=== PATIENT | male | born 1940 | race Caucasian/White ===

== ENCOUNTER 2017-04-07 06:00 | Outpatient (RCR) | payer SELFPAY | END 2017-04-08 23:59 | LOC: PR 06:00 | PROVIDERS: Family Provider Family Medicine; PCP Family Medicine; Visit Provider Family Medicine | DX: Z00.00 Encounter for general adult medical examination without abnormal findings (principal) ==

== ENCOUNTER 2017-05-05 06:00 | Outpatient (RCR) | payer SELFPAY | END 2017-05-06 23:59 | LOC: PR 06:00 | PROVIDERS: Family Provider Family Medicine; PCP Family Medicine; Visit Provider Family Medicine | DX: Z00.00 Encounter for general adult medical examination without abnormal findings (principal) ==

== ENCOUNTER 2017-06-04 06:00 | Outpatient (RCR) | payer SELFPAY | END 2017-06-06 23:59 | LOC: PR 06:00 | PROVIDERS: Family Provider Family Medicine; PCP Family Medicine; Visit Provider Family Medicine | DX: Z00.00 Encounter for general adult medical examination without abnormal findings (principal) ==

== ENCOUNTER 2017-07-02 07:00 | Outpatient (RCR) | payer SELFPAY | END 2017-07-06 23:59 | LOC: PR 07:00 | PROVIDERS: Family Provider Family Medicine; PCP Family Medicine; Visit Provider Family Medicine | DX: Z00.00 Encounter for general adult medical examination without abnormal findings (principal) ==

== ENCOUNTER 2017-08-06 07:00 | Outpatient (RCR) | payer SELFPAY | END 2017-08-06 23:59 | LOC: PR 07:00 | PROVIDERS: Family Provider Family Medicine; PCP Family Medicine; Visit Provider Family Medicine | DX: Z00.00 Encounter for general adult medical examination without abnormal findings (principal) ==

== ENCOUNTER 2017-09-03 07:00 | Outpatient (RCR) | payer SELFPAY | END 2017-09-05 23:59 | LOC: PR 07:00 | PROVIDERS: Family Provider Family Medicine; PCP Family Medicine; Visit Provider Family Medicine | DX: Z00.00 Encounter for general adult medical examination without abnormal findings (principal) ==

== ENCOUNTER → 2017-09-22 08:38 | Outpatient (CLI) | payer MEDICARE, SELFPAY ==
[2017-09-22 10:16] LABS: Absolute Neutrophil Count 4.1 X10^3/uL (2.0-7.7); Basophil# 0.02 X10^3/uL; Basophil% 0.3 % (0-1); Eosinophils% 1.6 % (0-5); Hematocrit 39.6 % (40-54); Hemoglobin 13.2 g/dl (13.0-16.5); Lymphocyte % 22.2 % (19-41); Mean Corp Hgb Conc 33.3 g/gl (32-36); Mean Platelet Vol. 10.7 fl (6.2-12.0); Monocyte# 0.71 X10^3/uL; Monocyte% 11.3 % (0-10); Neutrophil # 4.06 X10^3/uL (2.7-7.7); Neutrophil % 64.4 % (47-70); Platelet Count 164 K/mm3 (150-450); RBC Distribution Width CV 11.9 % (11.6-14.6); RBC Distribution Width SD 42.4 fl (35.1-43.9); White Blood Count 6.3 K/mm3 (4.4-11.0)
[2017-09-22 10:17] LABS: POSITIVE COUNT NO; POSITIVE DIFFERENTIAL NO; POSITIVE MORPHOLOGY NO
[2017-09-22 10:41] LABS: AST(SGOT) 32 U/L (15-37); Alanine Aminotransfer ALT/SGPT 40 U/L (16-61); Albumin, Serum 3.6 g/dL (3.2-5.0); Alkaline Phosphatase 48 U/L (45-117); Anion Gap 7 (5-15); BUN 12 mg/dL (7-18); BUN/Creat Ratio 12.4 RATIO (10-20); Calcium,Total 8.4 mg/dL (8.5-10.1); Chloride 104 mmol/L (98-107); Cholesterol 153 mg/dL (200); Creatinine, Serum 0.96 mg/dL (0.70-1.30); EST Glomerular Filtration Rate 81 mL/min (>60); Est Glom Filt Rate - Afr Amer 98 mL/min (>60); Globulin 3.5 g/dL (2.2-4.2); Glucose 105 mg/dL (74-106); High Density Lipoprotein 67 mg/dL; PSA,Total - Annual Screen 1.36 ng/mL (0.00-4.00); Potassium 4.5 mmol/L (3.5-5.1); Protein, Total 7.1 g/dL (6.4-8.2); Sodium Level 139 mmol/L (136-145); Triglycerides 65 mg/dL; Very Low Density Lipoprotein 13 mg/dL (5-40)
== END ==
PROVIDERS: Family Provider Family Medicine; PCP Family Medicine; Visit Provider Family Medicine
DX: Z00.00 Encounter for general adult medical examination without abnormal findings (principal); Z12.5 Encounter for screening for malignant neoplasm of prostate; J44.9 Chronic obstructive pulmonary disease, unspecified; E78.00 Pure hypercholesterolemia, unspecified
CPT/HCPCS: 36415; 80053; 80061; 84153; 85025; G0103

== ENCOUNTER 2017-10-06 07:00 | Outpatient (RCR) | payer SELFPAY | END 2017-10-06 23:59 | LOC: PR 07:00 | PROVIDERS: Family Provider Family Medicine; PCP Family Medicine; Visit Provider Family Medicine | DX: Z00.00 Encounter for general adult medical examination without abnormal findings (principal) ==

== ENCOUNTER 2017-11-05 07:00 | Outpatient (RCR) | payer SELFPAY | END 2017-11-06 23:59 | LOC: PR 07:00 | PROVIDERS: Family Provider Family Medicine; PCP Family Medicine; Visit Provider Family Medicine | DX: Z00.00 Encounter for general adult medical examination without abnormal findings (principal) ==

== ENCOUNTER 2017-12-03 07:00 | Outpatient (RCR) | payer SELFPAY | END 2017-12-06 23:59 | LOC: PR 07:00 | PROVIDERS: Family Provider Family Medicine; PCP Family Medicine; Visit Provider Family Medicine | DX: Z00.00 Encounter for general adult medical examination without abnormal findings (principal) ==

== ENCOUNTER 2018-01-05 07:00 | Outpatient (RCR) | payer SELFPAY | END 2018-01-06 23:59 | LOC: PR 07:00 | PROVIDERS: Family Provider Family Medicine; PCP Family Medicine; Referring Provider Family Medicine; Visit Provider Family Medicine | DX: Z00.00 Encounter for general adult medical examination without abnormal findings (principal) ==

== ENCOUNTER 2018-02-04 07:00 | Outpatient (RCR) | payer SELFPAY | END 2018-02-05 23:59 | LOC: PR 07:00 | PROVIDERS: Family Provider Family Medicine; PCP Family Medicine; Referring Provider Family Medicine; Visit Provider Family Medicine | DX: Z00.00 Encounter for general adult medical examination without abnormal findings (principal) ==

== ENCOUNTER 2018-03-04 07:00 | Outpatient (RCR) | payer SELFPAY | END 2018-03-08 23:59 | LOC: PR 07:00 | PROVIDERS: Family Provider Family Medicine; PCP Family Medicine; Referring Provider Family Medicine; Visit Provider Family Medicine | DX: Z00.00 Encounter for general adult medical examination without abnormal findings (principal) ==

== ENCOUNTER 2018-04-08 06:00 | Outpatient (RCR) | payer SELFPAY | END 2018-04-08 23:59 | LOC: PR 06:00 | PROVIDERS: Family Provider Family Medicine; PCP Family Medicine; Referring Provider Family Medicine; Visit Provider Family Medicine | DX: Z00.00 Encounter for general adult medical examination without abnormal findings (principal) ==

== ENCOUNTER 2018-05-06 06:00 | Outpatient (RCR) | payer SELFPAY | END 2018-05-06 23:59 | LOC: PR 06:00 | PROVIDERS: Family Provider Family Medicine; PCP Family Medicine; Referring Provider Family Medicine; Visit Provider Family Medicine | DX: Z00.00 Encounter for general adult medical examination without abnormal findings (principal) ==

== ENCOUNTER 2018-06-03 06:00 | Outpatient (RCR) | payer SELFPAY | END 2018-06-06 23:59 | LOC: PR 06:00 | PROVIDERS: Family Provider Family Medicine; PCP Family Medicine; Referring Provider Family Medicine; Visit Provider Family Medicine | DX: Z00.00 Encounter for general adult medical examination without abnormal findings (principal) ==

== ENCOUNTER 2018-07-06 06:00 | Outpatient (RCR) | payer SELFPAY | END 2018-07-06 23:59 | LOC: PR 06:00 | PROVIDERS: Family Provider Family Medicine; PCP Family Medicine; Referring Provider Family Medicine; Visit Provider Family Medicine | DX: Z00.00 Encounter for general adult medical examination without abnormal findings (principal) ==

== ENCOUNTER 2018-08-03 06:00 | Outpatient (RCR) | payer SELFPAY | END 2018-08-06 23:59 | LOC: PR 06:00 | PROVIDERS: Family Provider Family Medicine; PCP Family Medicine; Referring Provider Family Medicine; Visit Provider Family Medicine | DX: Z00.00 Encounter for general adult medical examination without abnormal findings (principal) ==

== ENCOUNTER 2018-09-02 06:00 | Outpatient (RCR) | payer SELFPAY | END 2018-09-05 23:59 | LOC: PR 06:00 | PROVIDERS: Family Provider Family Medicine; PCP Family Medicine; Referring Provider Family Medicine; Visit Provider Family Medicine | DX: Z00.00 Encounter for general adult medical examination without abnormal findings (principal) ==

== ENCOUNTER 2018-10-05 06:00 | Outpatient (RCR) | payer SELFPAY | END 2018-10-06 23:59 | LOC: PR 06:00 | PROVIDERS: Family Provider Family Medicine; PCP Family Medicine; Referring Provider Family Medicine; Visit Provider Family Medicine | DX: Z00.00 Encounter for general adult medical examination without abnormal findings (principal) ==

== ENCOUNTER → 2018-11-01 07:47 | Outpatient (CLI) | payer MEDICARE, SELFPAY ==
[2018-11-01 10:09] LABS: Absolute Lymphocyte Count 1.74 X10^3/uL (0.83-4.51); Absolute Neutrophil Count 3.2 X10^3/uL (2.0-7.7); Basophil# 0.04 X10^3/uL; Basophil% 0.7 % (0-1); Eosinophil# 0.28 X10^3/uL; Eosinophils% 4.6 % (0-5); Hematocrit 40.3 % (40-54); Hemoglobin 13.3 g/dL (13.0-16.5); Lymphocyte # 1.74 X10^3/ul (4.0); Lymphocyte % 28.3 % (19-41); Mean Corpuscular Hgb 32.6 pg (27.0-32.0); Mean Corpuscular Volume 98.8 fL (80-94); Mean Platelet Vol. 10.2 fl (6.2-12.0); Monocyte# 0.82 X10^3/uL; Monocyte% 13.4 % (0-10); NRBC Flagged by Analyzer 0 % (0-5); Neutrophil # 3.24 X10^3/uL (2.7-7.7); Neutrophil % 52.7 % (47-70); Platelet Count 157 K/mm3 (150-450); RBC Distribution Width CV 12.1 % (11.6-14.6); RBC Distribution Width SD 44.5 fl (35.1-43.9); Red Blood Count 4.08 M/mm3 (4.6-6.2); White Blood Count 6.1 K/mm3 (4.4-11.0)
[2018-11-01 10:36] LABS: ALB/GLOB Ratio 1.1 RATIO (0.9-2.4); AST(SGOT) 34 U/L (15-37); Alanine Aminotransfer ALT/SGPT 36 U/L (16-61); Albumin, Serum 3.5 g/dL (3.2-5.0); Alkaline Phosphatase 49 U/L (45-117); Anion Gap 5 (5-15); BUN 15 mg/dL (7-18); BUN/Creat Ratio 14.9 RATIO (10-20); Calcium,Total 8.7 mg/dL (8.5-10.1); Chloride 107 mmol/L (98-107); Creatinine, Serum 1.01 mg/dL (0.70-1.30); EST Glomerular Filtration Rate 76 mL/min (>60); Est Glom Filt Rate - Afr Amer 92 mL/min (>60); Globulin 3.3 g/dL (2.2-4.2); Glucose 95 mg/dL (74-106); Potassium 4.4 mmol/L (3.5-5.1); Protein, Total 6.8 g/dL (6.4-8.2); Sodium Level 142 mmol/L (136-145)
== END ==
PROVIDERS: Family Provider Family Medicine; PCP Family Medicine; Referring Provider Family Medicine; Visit Provider Family Medicine
DX: J44.9 Chronic obstructive pulmonary disease, unspecified (principal)
CPT/HCPCS: 36415; 80053; 85025

== ENCOUNTER 2018-11-04 06:00 | Outpatient (RCR) | payer SELFPAY | END 2018-11-06 23:59 | LOC: PR 06:00 | PROVIDERS: Family Provider Family Medicine; PCP Family Medicine; Referring Provider Family Medicine; Visit Provider Family Medicine | DX: Z00.00 Encounter for general adult medical examination without abnormal findings (principal) ==

== ENCOUNTER 2018-12-02 06:00 | Outpatient (RCR) | payer SELFPAY | END 2018-12-06 23:59 | LOC: PR 06:00 | PROVIDERS: Family Provider Family Medicine; PCP Family Medicine; Referring Provider Family Medicine; Visit Provider Family Medicine | DX: Z00.00 Encounter for general adult medical examination without abnormal findings (principal) ==

== ENCOUNTER 2019-01-06 06:00 | Outpatient (RCR) | payer SELFPAY | END 2019-01-06 23:59 | LOC: PR 06:00 | PROVIDERS: Family Provider Family Medicine; PCP Family Medicine; Referring Provider Family Medicine; Visit Provider Family Medicine | DX: Z00.00 Encounter for general adult medical examination without abnormal findings (principal) ==

== ENCOUNTER 2019-02-01 06:00 | Outpatient (RCR) | payer SELFPAY | END 2019-02-05 23:59 | LOC: PR 06:00 | PROVIDERS: Family Provider Family Medicine; PCP Family Medicine; Referring Provider Family Medicine; Visit Provider Family Medicine | DX: Z00.00 Encounter for general adult medical examination without abnormal findings (principal) ==

== ENCOUNTER 2019-03-08 06:00 | Outpatient (RCR) | payer SELFPAY | END 2019-03-08 23:59 | LOC: PR 06:00 | PROVIDERS: Family Provider Family Medicine; PCP Family Medicine; Referring Provider Family Medicine; Visit Provider Family Medicine | DX: Z00.00 Encounter for general adult medical examination without abnormal findings (principal) ==

== ENCOUNTER → 2019-03-08 09:49 | Outpatient (CLI) | payer MEDICARE, SELFPAY ==
--- NOTE | 2019-03-08 09:51 | VDLE_ITS ---
Reason For Study: DVT RIGHT GSV is normal. CFV is compressible, spontaneous, phasic, competent and demonstrates normal augmentation. FV is compressible, spontaneous, phasic, competent and demonstrates normal augmentation. POP V is compressible, spontaneous, phasic, competent and demonstrates normal augmentation. T/P Trunk is compressible. PTV is compressible. RT PerV is compressible. Procedure Exam performed in department. A preliminary report was called and/or faxed to [facility]. Interpretation Summary Deep veins of the right lower extremity are patent and compressible segmentally. There is no evidence of right lower extremity deep vein thrombosis. Valvular competence appears intact within the proximal deep venous system on the right . The right great saphenous vein appears patent and compressible segmentally. Ordering Physician: Tony Vicente Referring Physician: Cameron Woods MD Performed By: Vianney Rutherford RVT
== END ==
PROVIDERS: Family Provider Family Medicine; PCP Family Medicine; Referring Provider Family Medicine; Visit Provider Family Medicine
DX: M79.89 Other specified soft tissue disorders (principal)
CPT/HCPCS: 93971

== ENCOUNTER 2019-03-11 06:35 | Outpatient (RCR) | payer SELFPAY | END 2019-04-08 23:59 | LOC: PR 06:35 | PROVIDERS: Family Provider Family Medicine; PCP Family Medicine; Referring Provider Family Medicine; Visit Provider Family Medicine | DX: Z00.00 Encounter for general adult medical examination without abnormal findings (principal) ==

== ENCOUNTER → 2019-03-31 14:55 | Outpatient (CLI) | payer MEDICARE, SELFPAY ==
--- NOTE | 2019-03-31 14:59 | CT_ITS ---
ACR Level 3 findings have been noted. An addendum which confirms receipt of the report will follow. HISTORY: CONSTIPATION, HERNIA REPAIR X 2 TECHNIQUE: Helically acquired images were obtained of the abdomen and pelvis without oral or IV contrast. A radiation dose optimization technique was used for this scan. COMPARISON: None FINDINGS: # of images incl. paperwork: [id number] LUNG BASES: Pulmonary hyperexpansion. Interstitial thickening suggestive of obstructive lung disease and possibly emphysema CT abdomen: Multilevel degenerative disc disease and facet arthropathy. Spondylolysis without spondylolisthesis at L5-S1. Multilevel degenerative disc disease with loss of disc height, endplate sclerosis, and disc gas phenomenon. Gas with in the spinal canal at the L2-L3 and L3-L4 levels indicative of disc gas phenomenon, annular tears, and protrusions. Spinal canal stenosis at the L2-L3, L3-L4, and L4-L5 levels with bone disc material extending posteriorly into the spinal canal, facet arthropathy, and ligamentum flavum thickening. Schmorl's node invaginations at many levels. Some hip arthritis. Sacroiliac joint arthritis with enthesophytes. The gallbladder remains. With in the posterior aspect of the lateral segment of the left hepatic lobe there is an area of decreased density measuring 5.9 cm. It has fairly well-defined margins that are somewhat lobular. This relatively hypodense area has a central density of 31 Hounsfield units, compared to a central density of 50 Hounsfield units of the adjacent hepatic parenchyma. Thespleen, pancreas, and adrenal glands are normal. Kidneys demonstrate mild atrophy. No hydronephrosis or hydroureter. The aorta is diseased with atherosclerotic plaque and is tortuous. There is an infrarenal abdominal aortic aneurysm measuring 3.1 cm. There is no intra-or extrahepatic biliary ductal dilatation. CT pelvis: No ascites is present. The prostate gland is not enlarged. The appendix is normal. Series 2 image 97. The bladder not pathologically distended. There is a right posterior lateral bladder diverticulum. The diverticulum is anterior and lateral to the right UVJ.. Severe diverticulosis within the descending and sigmoid colon without evidence of acute diverticulitis CT/Abdomen/Pelvis without Cont IMPRESSION: Severe multilevel degenerative disc disease. Spondylolysis at L5. 3.1 cm infrarenal abdominal aortic aneurysm. 5.9 cm area of decreased density within the lateral segment of the left hepatic lobe posteriorly. This of unknown etiology. This could be an area of focal hepatic steatosis. Is less likely but not excluded. Recommend comparison any previous imaging. If no previous imaging consider additional imaging modality such as multiphase CT, multiphase MRI. Severe diverticulosis without perceived acute diverticulitis. Individualized dose optimization techniques were used for this CT. at 2305 Reported and signed by: Fausto Garcia MD Electronically Signed: Fausto Garcia MD at 23:04 EST Tel , Service support ,
== END ==
PROVIDERS: PCP Family Medicine; Referring Provider Family Medicine; Visit Provider Family Medicine
DX: K59.00 Constipation, unspecified (principal)
CPT/HCPCS: 74176

== ENCOUNTER 2019-04-07 06:00 | Outpatient (RCR) | payer SELFPAY | END 2019-04-08 23:59 | LOC: PR 06:00 | PROVIDERS: Family Provider Family Medicine; PCP Family Medicine; Referring Provider Family Medicine; Visit Provider Family Medicine | DX: Z00.00 Encounter for general adult medical examination without abnormal findings (principal) ==

== ENCOUNTER 2019-05-05 06:00 | Outpatient (RCR) | payer SELFPAY | END 2019-05-07 23:59 | LOC: PR 06:00 | PROVIDERS: Family Provider Family Medicine; PCP Family Medicine; Referring Provider Family Medicine; Visit Provider Family Medicine | DX: Z00.00 Encounter for general adult medical examination without abnormal findings (principal) ==

== ENCOUNTER → 2019-05-12 09:11 | Outpatient (CLI) | payer MEDICARE, SELFPAY ==
--- NOTE | 2019-05-12 09:16 | MRI_ITS ---
STUDY: MRI ABDOMEN WITH AND WITHOUT CONTRAST REASON FOR EXAM: Male, [address] scan, no complaints TECHNIQUE: Standardized fat and water weighted pulse sequences were obtained in all 3 orthogonal planes post contrast administration. IV Yes YES was administered for the contrast portion of the examination. COMPARISON: CT 03/31/2019 FINDINGS: The visualized lung bases are unremarkable. The visualized portions of the heart are within normal limits. There is a 4 x 5 cm T1 isointense, T2 slightly hyperintense area within the posterior aspect of the lateral segment left lobe liver which demonstrates hypointensity on the out of phase gradient echo images consistent with focal fatty infiltration. Furthermore, the enhanced images demonstrate normal enhancing portal vein branches and hepatic vein branches traversing through the area consistent with no true space-occupying mass. Normal gallbladder and extrahepatic biliary system. Normal spleen. Normal pancreas. Normal bilateral adrenal glands. Normal right kidney. Normal left kidney. Normal visualized stomach. Normal small intestine. Normal colon. There is non-visualization of the appendix. Tortuosity of the distal abdominal aorta with a maximal transverse diameter of 2.5 cm. Normal inferior vena cava. Normal retroperitoneum. Normal abdominal wall. Normal osseous structures. MRI/MRI Abd WITH and W/O Contrast IMPRESSION: MRI confirms a 4 x 5 cm area of focal fatty aeration in the posterior lateral segment left lobe of the liver. Electronically Signed: Mata Gonzalez MD at 10:45 EST Tel , Service support ,
[2019-05-12 10:01] LABS: EGFR FINGERSTICK > 60.0000 mL/min (>60)
== END ==
PROVIDERS: PCP Family Medicine; Referring Provider Family Medicine; Visit Provider Family Medicine
DX: R16.0 Hepatomegaly, not elsewhere classified (principal)
CPT/HCPCS: 74183; A9575

== ENCOUNTER 2019-05-19 06:00 | Outpatient (RCR) | payer SELFPAY | END 2019-06-07 23:59 | LOC: PR 06:00 | PROVIDERS: Family Provider Family Medicine; PCP Family Medicine; Referring Provider Family Medicine; Visit Provider Family Medicine | DX: Z00.00 Encounter for general adult medical examination without abnormal findings (principal) ==

== ENCOUNTER 2019-05-25 10:30 | Outpatient (RCR) | payer MEDICARE, SELFPAY ==
--- NOTE | 2019-04-28 12:12 | HP.PTEVAL_ITS ---
Patient's Visit Information JENNIFER VILLAGRAN is a 78 year old M referred to Physical Therapy by Cameron Woods MD with a diagnosis of LOW BACK PAIN ,DDD. Date of Evaluation: 04/28/19 Physical Therapist: Garry Lane PT, Cert MDT, OCS - Visit Plan Frequency: 1x/Week Duration: 6 Weeks Plan: PT INTERVENTIONS DLS,POSTURAL EX'S,MODALTIES,LE FLEXABILITY - Subjective Findings: This 78 y/o mael presents to physical therapy with lumbar pain. Patient has LBP for many years. Patient pain located as ache /sharp with activity symmtrical. Aggravting lifting,bending,standing .Alleviating factors sitting ,resting. Patient has cramps at night and restless legs. Denies parathesia/tingling. Bowel/bladder -. Coughing/sneezing-. Patient seen Dr for physical recommended PT. Patient seen chiropractor every week. Patient pain affects QOL ,function and ADL'S. SOCIAL: . VOCATION: retired - Pain Bilateral Back Pain Intensity (Out of 10): 3 Pain Intensity Range: 10 - Objective POSTURE: dropped right shoulder,mild foward posture. NEURO: denies parathesia/tingling,reflexes 2/3 L3-4,L4-5,L5-S1. PALPATION: unremarkable. GAIT: rexciprocal pattern. FLEXABLITY: hams mild tight. MMT: quads/ham/hip 4- /5 R,left 4/5. LUMBAR ROM: flexion min tight,extension mod ,side glides min tight. MUSCULAR ENDURANCE:poor core - Special Tests L/S Slump test left side: Negative L/S Slump test right side: Negative L/S Left Straight Leg Raise: Negative L/S Right Straight Leg Raise: Negative Lumbar Standing: Flexion - Mechanical Response: No effect Lumbar Standing: Flexion - Symptoms During Testing: No effect Lumbar Standing: Flexion - Symptoms After Testing: No effect Lumbar Standing: Extension - Mechanical Response: No effect Lumbar Standing: Extension - Symptoms During Testing: Increases Lumbar Standing: Extension - Symptoms After Testing: No worse Lumbar Standing: Right Side Glides - Mechanical Response: No effect Lumbar Standing: Right Side [place] - Symptoms During Testing: No effect Lumbar Standing: Right Side [place] - Symptoms After Testing: No effect Lumbar Standing: Left Side [place] - Mechanical Response: No effect Lumbar Standing: Left Side [place] - Symptoms During Testing: Increases Lumbar Standing: Left Side [place] - Symptoms After Testing: No worse - Goals Goal 1:: Patient to be Independant with HEP. Goal Time Frame: 4-6 Weeks Goal 2:: Patient improve posture for ADLS Goal Time Frame: 4-6 Weeks Goal 3:: Patient to decrease pain by 50% or > to improve function. Goal Time Frame: 4-6 Weeks Goal 4:: Patient to improve lumbar ROM for function of recovery Goal Time Frame: 4-6 Weeks Goal 5:: Patient to improve back owestry score by 5 points or > to improve QOL. Goal Time Frame: 4-6 Weeks - Rehabilitation Potential Physical Therapy Diagnosis: This patient with low back pain due to weakness core,posture which impairs gait,function thus benifit from skilled PT Rehabilitation Potential: Good - Anticipated Interventions Patient/Client Instruction: Educate patient on: Condition, Plan of Care For the Purpose of:: To decrease pain, To increase ROM, To improve muscle performance and motor function, To improve ability to perform ADL's, To increase tolerance to activity/condition/position, To improve performance and independence with ADL's, To improve ability of physical actions for home/community/work/leisure, To improve health of tissue, To decrease soft tissue restriction, To increase flexibility/ROM, To prevent re-injury, To improve ability to perform tasks related to life management Therapeutic Exercise to Include: Strength training, Body mechanics, Postural training, Flexibilty training, Dynamic Lumbar Stabilization For the Purpose of:: To decrease pain, To increase ROM, To improve muscle performance and motor function, To improve ability to perform ADL's, To increase tolerance to activity/condition/position, To improve ability of physical actions for home/community/work/leisure, To improve health of tissue, To decrease soft tissue restriction, To increase flexibility/ROM, To improve ability to perform tasks related to life management TENS: Yes IF ES: Yes Cryotherapy (ice pack, ice massage): Yes Thermo therapy (hot pack): Yes Ultrasound (thermal/non thermal): Yes For the Purpose of:: To decrease pain, To increase ROM, To improve nutrient delivery to tissue, To increase oxygenation perfusion, To improve health of tissue, To decrease soft tissue restriction Thank you for the opportunity to evaluate your patient. For Medicare and Medicare HMO plans, please review the plan of care and approve it. It will need to be FAXED BACK to us at [phone] for Medicare purposes. For Medicare only, by signing this I certify the plan of care. Please let me know if there are questions or concerns regarding this plan of care. Physician Signature: Date:
--- NOTE | 2019-10-19 10:26 | HP.PT.NRP ---
JENNIFER VILLAGRAN was seen in my office for initial evaluation on 04/28/19. The following Plan of Care was established for this patient: Initial Frequency: 1x/Week Initial Duration: 6 Weeks Patient/Client Instruction: Educate patient on: Condition, Plan of Care For the Purpose of:: To decrease pain, To increase ROM, To improve muscle performance and motor function, To improve ability to perform ADL's, To increase tolerance to activity/condition/position, To improve performance and independence with ADL's, To improve ability of physical actions for home/community/work/leisure, To improve health of tissue, To decrease soft tissue restriction, To increase flexibility/ROM, To prevent re-injury, To improve ability to perform tasks related to life management Therapeutic Exercise to Include: Strength training, Body mechanics, Postural training, Flexibilty training, Dynamic Lumbar Stabilization For the Purpose of:: To decrease pain, To increase ROM, To improve muscle performance and motor function, To improve ability to perform ADL's, To increase tolerance to activity/condition/position, To improve ability of physical actions for home/community/work/leisure, To improve health of tissue, To decrease soft tissue restriction, To increase flexibility/ROM, To improve ability to perform tasks related to life management TENS: Yes IF ES: Yes Cryotherapy (ice pack, ice massage): Yes Thermo therapy (hot pack): Yes Ultrasound (thermal/non thermal): Yes For the Purpose of:: To decrease pain, To increase ROM, To improve nutrient delivery to tissue, To increase oxygenation perfusion, To improve health of tissue, To decrease soft tissue restriction This patient was last seen in our office . Pertinent comments regarding their Physical therapy will appear below: At this point I will be discontinuing this patient from physical therapy. I would be happy to see this patient again in the future if found appropriate by the physician. Thank you! Garry Lane, PT, Cert MDT, OCS
== END 2019-05-25 19:00 | disposition home or self-care (01) ==
LOC: PT 10:30
PROVIDERS: PCP Family Medicine; Referring Provider Family Medicine; Visit Provider Family Medicine
DX: M54.5 Low back pain (principal); M51.36 Other intervertebral disc degeneration, lumbar region
CPT/HCPCS: 97110; 97162

== ENCOUNTER 2019-07-21 06:22 | Outpatient (RCR) | payer SELFPAY | END 2019-08-07 23:59 | LOC: PR 06:22 | PROVIDERS: Family Provider Family Medicine; PCP Family Medicine; Referring Provider Family Medicine; Visit Provider Family Medicine | DX: Z00.00 Encounter for general adult medical examination without abnormal findings (principal) ==

== ENCOUNTER 2019-08-16 06:16 | Outpatient (RCR) | payer SELFPAY | END 2019-09-06 23:59 | LOC: PR 06:16 | PROVIDERS: Family Provider Family Medicine; PCP Family Medicine; Referring Provider Family Medicine; Visit Provider Family Medicine | DX: Z00.00 Encounter for general adult medical examination without abnormal findings (principal) ==

== ENCOUNTER 2019-10-06 06:00 | Outpatient (RCR) | payer SELFPAY | END 2019-10-07 23:59 | LOC: PR 06:00 | PROVIDERS: Family Provider Family Medicine; PCP Family Medicine; Referring Provider Family Medicine; Visit Provider Family Medicine | DX: Z00.00 Encounter for general adult medical examination without abnormal findings (principal) ==

== ENCOUNTER → 2019-10-25 07:28 | Outpatient (CLI) | payer MEDICARE, SELFPAY ==
[2019-10-25 10:09] LABS: Absolute Lymphocyte Count 1.61 X10^3/uL (0.83-4.51); Absolute Neutrophil Count 3.6 X10^3/uL (2.0-7.7); Basophil# 0.04 X10^3/uL; Basophil% 0.6 % (0-1); Eosinophil# 0.18 X10^3/uL; Eosinophils% 2.9 % (0-5); Hematocrit 39.8 % (40-54); Hemoglobin 12.9 g/dL (13.0-16.5); Lymphocyte # 1.61 X10^3/ul (4.0); Lymphocyte % 25.5 % (19-41); Mean Corp Hgb Conc 32.4 g/dL (32-36); Mean Corpuscular Hgb 32.7 pg (27.0-32.0); Mean Platelet Vol. 10.6 fl (6.2-12.0); Monocyte# 0.85 X10^3/uL; Monocyte% 13.5 % (0-10); NRBC Flagged by Analyzer 0 % (0-5); Neutrophil # 3.62 X10^3/uL (2.7-7.7); Neutrophil % 57.3 % (47-70); Platelet Count 152 K/mm3 (150-450); RBC Distribution Width CV 12.4 % (11.6-14.6); RBC Distribution Width SD 46.4 fl (35.1-43.9); Red Blood Count 3.94 M/mm3 (4.6-6.2); White Blood Count 6.3 K/mm3 (4.4-11.0)
[2019-10-25 10:34] LABS: Microalbumin,Random Urine 7.6 mg/L (NO RANGE EST.); Microalbumin:Creatinine Ratio 7.7 mg/g CRE (<30 mg/g CRE)
[2019-10-25 10:50] LABS: Vitamin D,25 Hydroxy 40.4 ng/mL
[2019-10-25 11:15] LABS: AST(SGOT) 24 U/L (15-37); Alanine Aminotransfer ALT/SGPT 31 U/L (16-61); Albumin, Serum 3.6 g/dL (3.2-5.0); Alkaline Phosphatase 43 U/L (45-117); Anion Gap 3 (5-15); BUN 15 mg/dL (7-18); BUN/Creat Ratio 16.6 RATIO (10-20); Calcium,Total 8.6 mg/dL (8.5-10.1); Chloride 106 mmol/L (98-107); Creatinine, Serum 0.91 mg/dL (0.70-1.30); EST Glomerular Filtration Rate 86 mL/min (>60); Est Glom Filt Rate - Afr Amer 104 mL/min (>60); Ferritin 90 ng/mL (26-388); Globulin 3.5 g/dL (2.2-4.2); Glucose 112 mg/dL (74-106); Magnesium 2.4 mg/dL (1.6-2.6); Potassium 4.1 mmol/L (3.5-5.1); Protein, Total 7.1 g/dL (6.4-8.2); Sodium Level 139 mmol/L (136-145); Thyroid Stim Hormone (TSH) 2.44 uIU/mL (0.358-3.74)
== END ==
PROVIDERS: PCP Family Medicine; Referring Provider Family Medicine; Visit Provider Family Medicine
DX: M54.5 Low back pain (principal); G47.62 Sleep related leg cramps; J44.9 Chronic obstructive pulmonary disease, unspecified; I10 Essential (primary) hypertension
CPT/HCPCS: 36415; 80053; 82043; 82306; 82570; 82728; 83735; 84443; 85025

== ENCOUNTER 2019-11-03 06:00 | Outpatient (RCR) | payer SELFPAY | END 2019-11-07 23:59 | LOC: PR 06:00 | PROVIDERS: Family Provider Family Medicine; PCP Family Medicine; Referring Provider Family Medicine; Visit Provider Family Medicine | DX: Z00.00 Encounter for general adult medical examination without abnormal findings (principal) ==

== ENCOUNTER 2019-12-06 06:00 | Outpatient (RCR) | payer SELFPAY | END 2019-12-07 23:59 | LOC: PR 06:00 | PROVIDERS: Family Provider Family Medicine; PCP Family Medicine; Referring Provider Family Medicine; Visit Provider Family Medicine | DX: Z00.00 Encounter for general adult medical examination without abnormal findings (principal) ==

== ENCOUNTER 2020-01-05 06:00 | Outpatient (RCR) | payer SELFPAY | END 2020-01-07 23:59 | LOC: PR 06:00 | PROVIDERS: Family Provider Family Medicine; PCP Family Medicine; Referring Provider Family Medicine; Visit Provider Family Medicine | DX: Z00.00 Encounter for general adult medical examination without abnormal findings (principal) ==

== ENCOUNTER 2020-01-31 06:00 | Outpatient (RCR) | payer SELFPAY | END 2020-02-06 23:59 | LOC: PR 06:00 | PROVIDERS: Family Provider Family Medicine; PCP Family Medicine; Referring Provider Family Medicine; Visit Provider Family Medicine | DX: Z00.00 Encounter for general adult medical examination without abnormal findings (principal) ==

== ENCOUNTER 2020-03-08 06:00 | Outpatient (RCR) | payer SELFPAY | END 2020-03-08 23:59 | LOC: PR 06:00 | PROVIDERS: Family Provider Family Medicine; PCP Family Medicine; Referring Provider Family Medicine; Visit Provider Family Medicine | DX: Z00.00 Encounter for general adult medical examination without abnormal findings (principal) ==

== ENCOUNTER 2020-04-05 08:00 | Outpatient (RCR) | payer SELFPAY | END 2020-04-08 23:59 | LOC: PR 08:00 | PROVIDERS: PCP Family Medicine; Visit Provider Family Medicine | DX: Z00.00 Encounter for general adult medical examination without abnormal findings (principal) ==

== ENCOUNTER → 2020-04-12 09:45 | Outpatient (CLI) | payer MEDICARE, SELFPAY ==
--- NOTE | 2020-04-12 09:47 | US_ITS ---
PROCEDURES: ULTRASOUND AORTA REASON FOR EXAM: Male, 79 years old. AAA TECHNIQUE: Ultrasound evaluation of the aorta was performed with real-time and static enriquez-scale imaging. COMPARISON: None. FINDINGS: There is no elongation or tortuosity of the abdominal aorta. Aorta measures: Proximal 2.4 cm. Middle 2.8 cm. Distal 2.7 cm. Aorta measure transversely: Proximal 2.4 cm. Middle 2.8 cm. Distal 3.1 cm. Right iliac artery measures: 1.5 cm. Right iliac artery measure transversely: 1.4 cm. Left iliac artery measures: 1.7 cm. Left iliac artery measure transversely: 1.5 cm. Fusiform infrarenal abdominal aortic aneurysm with a transverse dimension of 3.1 cm.. US/Aorta IMPRESSION: Fusiform infrarenal abdominal aortic aneurysm with a transverse dimension of 3.1 cm. Electronically Signed: Lazaro Abebe MD at 10:50 EST , Service support ,
== END ==
PROVIDERS: PCP Family Medicine; Referring Provider Family Medicine; Visit Provider Family Medicine
DX: I71.4 Abdominal aortic aneurysm, without rupture (principal)
CPT/HCPCS: 76775

== ENCOUNTER 2020-06-05 08:00 | Outpatient (RCR) | payer SELFPAY | END 2020-06-06 23:59 | LOC: PR 08:00 | PROVIDERS: PCP Family Medicine; Visit Provider Family Medicine | DX: Z00.00 Encounter for general adult medical examination without abnormal findings (principal) ==

== ENCOUNTER 2020-07-05 08:00 | Outpatient (RCR) | payer SELFPAY | END 2020-07-06 23:59 | LOC: PR 08:00 | PROVIDERS: PCP Family Medicine; Visit Provider Family Medicine | DX: Z00.00 Encounter for general adult medical examination without abnormal findings (principal) ==

== ENCOUNTER 2020-08-02 08:00 | Outpatient (RCR) | payer SELFPAY | END 2020-08-06 23:59 | LOC: PR 08:00 | PROVIDERS: PCP Family Medicine; Visit Provider Family Medicine | DX: Z00.00 Encounter for general adult medical examination without abnormal findings (principal) ==

== ENCOUNTER 2020-09-04 08:00 | Outpatient (RCR) | payer SELFPAY | END 2020-09-05 23:59 | LOC: PR 08:00 | PROVIDERS: PCP Family Medicine; Referring Provider Family Medicine; Visit Provider Family Medicine | DX: Z00.00 Encounter for general adult medical examination without abnormal findings (principal) ==

== ENCOUNTER 2020-10-04 08:00 | Outpatient (RCR) | payer SELFPAY | END 2020-10-06 23:59 | LOC: PR 08:00 | PROVIDERS: PCP Family Medicine; Referring Provider Family Medicine; Visit Provider Family Medicine | DX: Z00.00 Encounter for general adult medical examination without abnormal findings (principal) ==

== ENCOUNTER 2020-11-06 08:00 | Outpatient (RCR) | payer SELFPAY | END 2020-11-06 23:59 | LOC: PR 08:00 | PROVIDERS: PCP Family Medicine; Referring Provider Family Medicine; Visit Provider Family Medicine | DX: Z00.00 Encounter for general adult medical examination without abnormal findings (principal) ==

== ENCOUNTER 2020-12-06 08:00 | Outpatient (RCR) | payer SELFPAY | END 2020-12-06 23:59 | LOC: PR 08:00 | PROVIDERS: PCP Family Medicine; Referring Provider Family Medicine; Visit Provider Family Medicine | DX: Z00.00 Encounter for general adult medical examination without abnormal findings (principal) ==

== ENCOUNTER 2021-01-03 08:00 | Outpatient (RCR) | payer SELFPAY | END 2021-01-06 23:59 | LOC: PR 08:00 | PROVIDERS: PCP Family Medicine; Referring Provider Family Medicine; Visit Provider Family Medicine | DX: Z00.00 Encounter for general adult medical examination without abnormal findings (principal) ==

== ENCOUNTER 2021-02-05 08:00 | Outpatient (RCR) | payer SELFPAY | END 2021-02-05 23:59 | LOC: PR 08:00 | PROVIDERS: PCP Family Medicine; Referring Provider Family Medicine; Visit Provider Family Medicine | DX: Z00.00 Encounter for general adult medical examination without abnormal findings (principal) ==

== ENCOUNTER → 2021-02-12 10:18 | Outpatient (CLI) | payer MEDICARE, SELFPAY ==
--- NOTE | 2021-02-12 10:21 | US_ITS ---
PROCEDURES: ULTRASOUND AORTA REASON FOR EXAM: Male, 80 years old. Follow up on AAA TECHNIQUE: Ultrasound evaluation of the aorta was performed with real-time and static enriquez-scale imaging. COMPARISON: Comparison is made with prior study of 04/12/2020. FINDINGS: There is tortuous elongation of the abdominal aorta. Aorta measures: Proximal 2.4 cm. Middle 1.9 cm. Distal 3 cm. Aorta measure transversely: Proximal 2.2 cm. Middle 1.5 cm. Distal 3 cm. Right iliac artery measures: 1.9 cm. Right iliac artery measure transversely: 1.5 cm. Left iliac artery measures: 1.5 cm. Left iliac artery measure transversely: 1.2 cm. Stable fusiform infrarenal abdominal aortic aneurysm with a transverse dimension of 3 cm.. US/Aorta IMPRESSION: Stable fusiform infrarenal abdominal aortic aneurysm with a transverse dimension of 3 cm. Electronically Signed: Lazaro Abebe MD at 15:20 EST , Service support ,
== END ==
PROVIDERS: PCP Family Medicine; Referring Provider Family Medicine; Visit Provider Family Medicine
DX: I71.4 Abdominal aortic aneurysm, without rupture (principal)
CPT/HCPCS: 76775

== ENCOUNTER 2021-03-07 08:00 | Outpatient (RCR) | payer SELFPAY | END 2021-03-08 23:59 | LOC: PR 08:00 | PROVIDERS: PCP Family Medicine; Referring Provider Family Medicine; Visit Provider Family Medicine | DX: Z00.00 Encounter for general adult medical examination without abnormal findings (principal) ==

== ENCOUNTER 2021-04-04 08:00 | Outpatient (RCR) | payer SELFPAY | END 2021-04-08 23:59 | LOC: PR 08:00 | PROVIDERS: PCP Family Medicine; Referring Provider Family Medicine; Visit Provider Family Medicine | DX: Z00.00 Encounter for general adult medical examination without abnormal findings (principal) ==

== ENCOUNTER 2021-04-30 08:00 | Outpatient (RCR) | payer SELFPAY | END 2021-05-06 23:59 | disposition home or self-care (01) | LOC: PR 08:00 | PROVIDERS: PCP Family Medicine; Referring Provider Family Medicine; Visit Provider Family Medicine | DX: Z00.00 Encounter for general adult medical examination without abnormal findings (principal) ==

== ENCOUNTER 2021-06-06 08:00 | Outpatient (RCR) | payer SELFPAY | END 2021-06-06 23:59 | disposition home or self-care (01) | LOC: PR 08:00 | PROVIDERS: PCP Family Medicine; Referring Provider Family Medicine; Visit Provider Family Medicine | DX: Z00.00 Encounter for general adult medical examination without abnormal findings (principal) ==

== ENCOUNTER 2021-07-04 08:00 | Outpatient (RCR) | payer SELFPAY | END 2021-07-06 23:59 | LOC: PR 08:00 | PROVIDERS: PCP Family Medicine; Referring Provider Family Medicine; Visit Provider Family Medicine | DX: Z00.00 Encounter for general adult medical examination without abnormal findings (principal) ==

== ENCOUNTER 2021-08-06 08:00 | Outpatient (RCR) | payer SELFPAY | END 2021-08-06 23:59 | LOC: PR 08:00 | PROVIDERS: PCP Family Medicine; Referring Provider Family Medicine; Visit Provider Family Medicine | DX: Z00.00 Encounter for general adult medical examination without abnormal findings (principal) ==

== ENCOUNTER → 2021-08-07 | Outpatient (CLI) | payer MEDICARE, SELFPAY ==
[2021-08-07 10:01] LABS: Hematocrit 37.9 % (40-54); Hemoglobin 12.7 g/dL (13.0-16.5); Mean Corp Hgb Conc 33.5 g/dL (32-36); Mean Corpuscular Hgb 32.6 pg (27.0-32.0); Mean Corpuscular Volume 97.4 fL (80-94); Mean Platelet Vol. 10.2 fl (6.2-12.0); Platelet Count 163 K/mm3 (150-450); Red Blood Count 3.89 M/mm3 (4.6-6.2); White Blood Count 7.5 K/mm3 (4.4-11.0)
[2021-08-07 10:34] LABS: ALB/GLOB Ratio 1.1 RATIO (0.9-2.4); AST(SGOT) 50 U/L (15-37); Alanine Aminotransfer ALT/SGPT 44 U/L (16-61); Albumin, Serum 3.7 g/dL (3.2-5.0); Alkaline Phosphatase 46 U/L (45-117); Anion Gap 7 (5-15); BUN 13 mg/dL (7-18); BUN/Creat Ratio 14.3 RATIO (10-20); Calcium,Total 8.9 mg/dL (8.5-10.1); Chloride 101 mmol/L (98-107); Creatinine, Serum 0.91 mg/dL (0.70-1.30); EST Glomerular Filtration Rate 86 mL/min (>60); Est Glom Filt Rate - Afr Amer 103 mL/min (>60); Globulin 3.4 g/dL (2.2-4.2); Glucose 106 mg/dL (74-106); Magnesium 2.2 mg/dL (1.6-2.6); Potassium 4.2 mmol/L (3.5-5.1); Protein, Total 7.1 g/dL (6.4-8.2); Sodium Level 134 mmol/L (136-145)
[2021-08-08 18:17] LABS: Ferritin 105 ng/mL (26-388)
== END | disposition home or self-care (01) ==
LOC: MTLAB 07:34
PROVIDERS: PCP Family Medicine; Referring Provider Family Medicine; Visit Provider Family Medicine
DX: G47.62 Sleep related leg cramps (principal); D64.9 Anemia, unspecified
CPT/HCPCS: 36415; 80053; 82728; 83735; 85027

== ENCOUNTER 2021-09-05 08:00 | Outpatient (RCR) | payer SELFPAY | END 2021-09-05 23:59 | LOC: PR 08:00 | PROVIDERS: PCP Family Medicine; Referring Provider Family Medicine; Visit Provider Family Medicine | DX: Z00.00 Encounter for general adult medical examination without abnormal findings (principal) ==

== ENCOUNTER 2021-10-03 08:00 | Outpatient (RCR) | payer SELFPAY | END 2021-10-06 23:59 | LOC: PR 08:00 | PROVIDERS: PCP Family Medicine; Referring Provider Family Medicine; Visit Provider Family Medicine | DX: Z00.00 Encounter for general adult medical examination without abnormal findings (principal) ==

== ENCOUNTER 2021-11-05 08:00 | Outpatient (RCR) | payer SELFPAY | END 2021-11-06 23:59 | LOC: PR 08:00 | PROVIDERS: PCP Family Medicine; Referring Provider Family Medicine; Visit Provider Family Medicine | DX: Z00.00 Encounter for general adult medical examination without abnormal findings (principal) ==

== ENCOUNTER → 2021-11-12 | Outpatient (CLI) | payer MEDICARE, SELFPAY ==
[2021-11-12 12:23] LABS: Prothrombin Time (Protime)PT. 12.8 SECONDS (11.7-14.9)
[2021-11-12 12:51] LABS: BUN 22 mg/dL (7-18); Creatinine, Serum 0.95 mg/dL (0.70-1.30); Glucose 132 mg/dL (74-106)
[2021-11-12 12:52] LABS: ALB/GLOB Ratio 0.9 RATIO (0.9-2.4); AST(SGOT) 42 U/L (15-37); Alanine Aminotransfer ALT/SGPT 67 U/L (16-61); Albumin, Serum 3.3 g/dL (3.2-5.0); Alkaline Phosphatase 44 U/L (45-117); Anion Gap 10 (5-15); BUN/Creat Ratio 23.2 RATIO (10-20); Calcium,Total 8.7 mg/dL (8.5-10.1); Chloride 98 mmol/L (98-107); EST Glomerular Filtration Rate 82 mL/min (>60); Est Glom Filt Rate - Afr Amer 99 mL/min (>60); Globulin 3.6 g/dL (2.2-4.2); Potassium 4.2 mmol/L (3.5-5.1); Prealbumin 27.4 mg/dL (20.0-40.0); Protein, Total 6.9 g/dL (6.4-8.2); Sodium Level 133 mmol/L (136-145); Thyroid Stim Hormone (TSH) 1.13 uIU/mL (0.358-3.74)
[2021-11-12 13:24] LABS: Hepatitis C Antibody Non-Reactive (Nonreactive)
== END | disposition home or self-care (01) ==
LOC: MFPLAB 10:43
PROVIDERS: PCP Family Medicine; Visit Provider Family Medicine
DX: R63.4 Abnormal weight loss (principal); I71.4 Abdominal aortic aneurysm, without rupture
CPT/HCPCS: 36415; 80053; 84134; 84443; 85610; 86803

== ENCOUNTER → 2021-11-19 | Outpatient (CLI) | payer MEDICARE, SELFPAY ==
--- NOTE | 2021-11-19 09:38 | US_ITS ---
STUDY: ABDOMINAL ULTRASOUND - RIGHT UPPER QUADRANT REASON FOR VISIT: Male, 81 years old elevated liver enzymes TECHNIQUE: Ultrasound evaluation of the right upper quadrant was performed with real-time and static enriquez-scale imaging. TECHNICAL QUALITY: Adequate. COMPARISON: None. FINDINGS: Liver: The liver measures 13.7 cm. There is a 6.2 side by 6.4 cm x 3.2 cm geographic region of increased echotexture in the left lobe of the liver. This corresponds to the finding on prior CT scan dated the 2019. This may represent an area of the focal fatty infiltration. The bile ducts are within normal limits. There is hepatic color flow. The direction of portal flow is hepatopetal. There is no demonstrated mass lesion. Gallbladder: Normal distended gallbladder. The gallbladder wall measures 2.1 mm. There is a negative sonographic Sanchez''s sign. There is no pericholecystic fluid. There are no gallstones. Common Bile Duct (C.B.D.): The common bile duct measures 1.9 mm. Pancreas: There is nonvisualization of the pancreas due to overlying bowel gas. Right Kidney: Normal size of the right kidney. The right kidney measures 11.1 cm x 5.6 cm x 6.1 cm. Normal renal cortex. The right cortex measures 2.7 cm. There is no demonstrated renal mass or cyst. There is no right hydronephrosis. US/Abdomen Limited IMPRESSION: Findings suggesting a focal area of fatty infiltration in the left lobe of the liver. Electronically Signed: Lazaro Abebe MD at 14:22 EDT ,
== END | disposition home or self-care (01) ==
PROVIDERS: PCP Family Medicine; Referring Provider Family Medicine; Visit Provider Family Medicine
DX: R74.01 Elevation of levels of liver transaminase levels (principal)
CPT/HCPCS: 76705

== ENCOUNTER 2021-12-05 08:00 | Outpatient (RCR) | payer SELFPAY | END 2021-12-06 23:59 | LOC: PR 08:00 | PROVIDERS: PCP Family Medicine; Referring Provider Family Medicine; Visit Provider Family Medicine | DX: Z00.00 Encounter for general adult medical examination without abnormal findings (principal) ==

== ENCOUNTER 2022-01-02 08:00 | Outpatient (RCR) | payer SELFPAY | END 2022-01-06 23:59 | LOC: PR 08:00 | PROVIDERS: PCP Family Medicine; Referring Provider Family Medicine; Visit Provider Family Medicine | DX: Z00.00 Encounter for general adult medical examination without abnormal findings (principal) ==

== ENCOUNTER 2022-02-04 08:00 | Outpatient (RCR) | payer SELFPAY | END 2022-02-05 23:59 | LOC: PR 08:00 | PROVIDERS: PCP Family Medicine; Referring Provider Family Medicine; Visit Provider Family Medicine | DX: Z00.00 Encounter for general adult medical examination without abnormal findings (principal) ==

== ENCOUNTER → 2022-02-18 | Outpatient (CLI) | payer MEDICARE, SELFPAY ==
--- NOTE | 2022-02-18 08:58 | US_ITS ---
PROCEDURES: ULTRASOUND AORTA REASON FOR EXAM: Male, 81 years old. AAA - follow up TECHNIQUE: Ultrasound evaluation of the aorta was performed with real-time and static enriquez-scale imaging. COMPARISON: None. FINDINGS: There is no elongation or tortuosity of the abdominal aorta. Aorta measures: Proximal 2.2 cm. Middle 1.9 cm. Distal 3.2 cm. Aorta measure transversely: Proximal 2.7 cm. Middle 2.2 cm. Distal 3.2 cm. Right iliac artery measures: 1.4 cm. Right iliac artery measure transversely: 1.9 cm. Left iliac artery measures: 1.5 cm. Left iliac artery measure transversely: 1.7 cm. There is a demonstrated aneurysm.. US/Aorta IMPRESSION: 3.2 cm abdominal aortic aneurysm with dilatation of the common iliac arteries. Electronically Signed: Mata Gonzalez MD at 9:09 EST ,
== END | disposition home or self-care (01) ==
LOC: US 08:57
PROVIDERS: PCP Family Medicine; Referring Provider Family Medicine; Visit Provider Family Medicine
DX: I71.40 Abdominal aortic aneurysm, without rupture, unspecified (principal)
CPT/HCPCS: 76775

== ENCOUNTER 2022-03-06 08:00 | Outpatient (RCR) | payer SELFPAY | END 2022-03-08 23:59 | LOC: PR 08:00 | PROVIDERS: PCP Family Medicine; Referring Provider Family Medicine; Visit Provider Family Medicine | DX: Z00.00 Encounter for general adult medical examination without abnormal findings (principal) ==

== ENCOUNTER 2022-04-08 08:00 | Outpatient (RCR) | payer SELFPAY | END 2022-04-08 23:59 | LOC: PR 08:00 | PROVIDERS: PCP Family Medicine; Visit Provider Family Medicine | DX: Z00.00 Encounter for general adult medical examination without abnormal findings (principal) ==

== ENCOUNTER 2022-05-06 08:00 | Outpatient (RCR) | payer SELFPAY | END 2022-05-06 23:59 | LOC: PR 08:00 | PROVIDERS: PCP Family Medicine; Visit Provider Family Medicine | DX: Z00.00 Encounter for general adult medical examination without abnormal findings (principal) ==

== ENCOUNTER → 2022-06-03 | Outpatient (CLI) | payer MEDICARE, SELFPAY ==
[2022-06-03 09:52] LABS: Absolute Lymphocyte Count 1.46 X10^3/uL (0.83-4.51); Absolute Neutrophil Count 5.3 X10^3/uL (2.0-7.7); Basophil# 0.04 X10^3/uL; Basophil% 0.5 % (0-1); Eosinophil# 0.15 X10^3/uL; Eosinophils% 1.9 % (0-5); Hematocrit 39.9 % (40-54); Hemoglobin 13.3 g/dL (13.0-16.5); Lymphocyte # 1.46 X10^3/ul (0.83-4.51); Lymphocyte % 18.5 % (19-41); Mean Corp Hgb Conc 33.3 g/dL (32-36); Mean Corpuscular Hgb 32.6 pg (27.0-32.0); Mean Corpuscular Volume 97.8 fL (80-94); Mean Platelet Vol. 10.5 fl (6.2-12.0); Monocyte# 0.97 X10^3/uL; Monocyte% 12.3 % (0-10); NRBC Flagged by Analyzer 0 % (0-5); Neutrophil # 5.27 X10^3/uL (2.7-7.7); Neutrophil % 66.5 % (47-70); Platelet Count 164 K/mm3 (150-450); RBC Distribution Width CV 11.9 % (11.6-14.6); RBC Distribution Width SD 43.3 fl (35.1-43.9); Red Blood Count 4.08 M/mm3 (4.6-6.2); White Blood Count 7.9 K/mm3 (4.4-11.0)
[2022-06-03 10:26] LABS: AST(SGOT) 34 U/L (15-37); Alanine Aminotransfer ALT/SGPT 38 U/L (16-61); Albumin, Serum 3.5 g/dL (3.2-5.0); Alkaline Phosphatase 44 U/L (45-117); Anion Gap 2 (5-15); BUN 11 mg/dL (7-18); BUN/Creat Ratio 12.8 RATIO (10-20); CRP, High Sensitivity Cardiac 0.48 mg/L; Chloride 104 mmol/L (98-107); Cholesterol 137 mg/dL (200); Creatinine, Serum 0.86 mg/dL (0.70-1.30); EST Glomerular Filtration Rate 91 mL/min (>60); Est Glom Filt Rate - Afr Amer 110 mL/min (>60); Globulin 3.4 g/dL (2.2-4.2); Glucose 98 mg/dL (74-106); High Density Lipoprotein 64 mg/dL; Potassium 4.2 mmol/L (3.5-5.1); Protein, Total 6.9 g/dL (6.4-8.2); Sodium Level 136 mmol/L (136-145); Triglycerides 48 mg/dL; Very Low Density Lipoprotein 10 mg/dL (5-40)
== END | disposition home or self-care (01) ==
LOC: MTLAB 08:55
PROVIDERS: PCP Family Medicine; Referring Provider Family Medicine; Visit Provider Family Medicine
DX: E78.00 Pure hypercholesterolemia, unspecified (principal); J44.9 Chronic obstructive pulmonary disease, unspecified
CPT/HCPCS: 36415; 80053; 80061; 85025; 86141

== ENCOUNTER 2022-06-05 08:00 | Outpatient (RCR) | payer SELFPAY | END 2022-06-06 23:59 | LOC: PR 08:00 | PROVIDERS: PCP Family Medicine; Visit Provider Family Medicine | DX: Z00.00 Encounter for general adult medical examination without abnormal findings (principal) ==

== ENCOUNTER → 2022-06-05 | Outpatient (CLI) | payer MEDICARE, SELFPAY ==
--- NOTE | 2022-06-05 08:51 | US_ITS ---
INDICATION: 3 month recheck AAA EXAMINATION: Ultrasound US Aorta abdominal aortic aneurysm (aaa) screening TECHNIQUE: Ware scale and color doppler imaging was obtained of the abdominal aorta. COMPARISON: February 18, 2022. FINDINGS: There is a distal abdominal aortic aneurysm measuring 3.3 cm in maximum axial extending approximately 5.2 cm in the craniocaudal length. The right common iliac is 1.3 x 1.4 cm. The left common iliac artery is 1.5 x 1.8 cm. US/Aorta IMPRESSION: Distal abdominal aortic aneurysm is noted similar in diameter. Correlate with CTA if needed. Slightly ectatic common iliac arteries. Electronically Signed: Miguel Sylvester DO at 23:22 EDT Reading Location ID and State: [facility] / [place] Tel [phone], Service support ,
== END | disposition home or self-care (01) ==
LOC: CVS 08:50
PROVIDERS: PCP Family Medicine; Referring Provider Family Medicine; Visit Provider Family Medicine
DX: I71.40 Abdominal aortic aneurysm, without rupture, unspecified (principal)
CPT/HCPCS: 76775

== ENCOUNTER 2022-07-03 08:00 | Outpatient (RCR) | payer SELFPAY | END 2022-07-06 23:59 | LOC: PR 08:00 | PROVIDERS: PCP Family Medicine; Visit Provider Family Medicine | DX: Z00.00 Encounter for general adult medical examination without abnormal findings (principal) ==

== ENCOUNTER 2022-07-03 12:53 | Emergency (ER) | payer MEDICARE, SELFPAY ==
[2022-07-03 12:54] VITALS: BP 163/112; PULSE 80; RESP 18; TEMP 36.1; O2SAT 95; BMI 25.1
--- NOTE | 2022-07-03 13:06 | EKG12_ITS ---
Test Reason : CP Blood Pressure : / mmHG Vent. Rate : 064 BPM Atrial Rate : 064 BPM P-R Int : 160 ms QRS Dur : 118 ms QT Int : 400 ms P-R-T Axes : 071 077 042 degrees QTc Int : 412 ms Sinus rhythm with Premature atrial complexes with Aberrant conduction Right bundle branch block Abnormal ECG When compared with ECG of 25-SEP-2010 08:01, Aberrant conduction is now Present Right bundle branch block is now Present Confirmed by ELE WAHL, ALTAGRACIA ([id number]), editor house organ ROLY MINAYA ([id number]) on 07/08/2022 11:55:09 AM Referred By: LAUREN Confirmed By:ALTAGRACIA MARLOW MD
[2022-07-03 13:24] LABS: Absolute Lymphocyte Count 2.06 X10^3/uL (0.83-4.51); Absolute Neutrophil Count 5.3 X10^3/uL (2.0-7.7); Basophil# 0.04 X10^3/uL; Basophil% 0.5 % (0-1); Eosinophil# 0.11 X10^3/uL; Eosinophils% 1.3 % (0-5); Hematocrit 39.3 % (40-54); Hemoglobin 13.4 g/dL (13.0-16.5); Lymphocyte # 2.06 X10^3/ul (0.83-4.51); Lymphocyte % 24.1 % (19-41); Mean Corp Hgb Conc 34.1 g/dL (32-36); Mean Corpuscular Hgb 33.2 pg (27.0-32.0); Mean Corpuscular Volume 97.3 fL (80-94); Monocyte% 11.7 % (0-10); NRBC Flagged by Analyzer 0 % (0-5); Neutrophil # 5.33 X10^3/uL (2.7-7.7); Neutrophil % 62.2 % (47-70); Platelet Count 164 K/mm3 (150-450); RBC Distribution Width CV 12.3 % (11.6-14.6); RBC Distribution Width SD 44.3 fl (35.1-43.9); Red Blood Count 4.04 M/mm3 (4.6-6.2); White Blood Count 8.6 K/mm3 (4.4-11.0)
[2022-07-03 13:42] LABS: Anion Gap 2 (5-15); BUN 12 mg/dL (7-18); BUN/Creat Ratio 13.2 RATIO (10-20); Calcium,Total 9.2 mg/dL (8.5-10.1); Chloride 105 mmol/L (98-107); Creatinine, Serum 0.91 mg/dL (0.70-1.30); EST Glomerular Filtration Rate 85 mL/min (>60); Est Glom Filt Rate - Afr Amer 103 mL/min (>60); Estimated Creatinine Clearance 66.85 ml/min; Glucose 116 mg/dL (74-106); Sodium Level 135 mmol/L (136-145); Troponin-I HS (w/2H Reflex) 8 pg/mL (3.0-78.0)
[2022-07-03 14:26] VITALS: BP 144/83; PULSE 60; RESP 17; O2SAT 96; O2SAT 97
--- NOTE | 2022-07-03 14:45 | RAD_ITS ---
STUDY: XR Chest 1 View 07/03/2022 3:56 PM REASON FOR EXAM: Male, 82 years old. CHEST PAIN chest pain COMPARISON: None TECHNIQUE: XR Chest 1 View FINDINGS: There is no demonstrated pleural abnormality. Normal heart size. Normal mediastinum. Normal cristofer. Prominent appearing increased interstitial lung markings. Normal visualized pulmonary arteries. There is atherosclerotic calcification of the aortic arch with tortuosity. There are diffuse degenerative changes of the visualized thoracic spine. There is degenerative osteoarthritis of the bilateral shoulders. There is no demonstrated abnormality of the visualized soft tissue structures of the upper abdomen. RAD/Chest 1 View (Portable) IMPRESSION: There are no acute findings. Electronically Signed: Max Hester MD at 15:00 EDT ,
--- NOTE | 2022-07-03 14:51 | ED.RN ---
THIS RN RESPONDED TO CALL LIGHT. PT STATES THAT DR. ANDERSON ASKED THAT HE CALL OUT IF HE WAS EXPERIENCING ANY SYMPTOMS OF SKIPPING HEART BEATS. PT STATES AT 1444 HE EXPERIENCED THE SKIPPING SENSATION. PT DENIES ANY SYMPTOMS OF PAIN IN HEAD, NECK, FACE, JAW, SHOULDER, CHEST, OR PALPITATIONS/ FEELINGS OF HEART RACING. PT DENIES HAVING ANY PAIN OR DISCOMFORT. PT KNEW HE WAS EXPERIENCING SYMPTOMS BECAUSE HE WAS FEELING HIS PULSE IN HIS ARM. PT DOES REPORT SLIGHT HEADACHE THAT STARTED BEFORE HE GOT TO ER. THIS RN PRINTED OFF HEART MONITOR STRIP FOR [address] ANDERSON AT 1446 AND EXPLAINED SITUATION. PT ENCOURAGED TO CALL OUT AGAIN FOR ANY S/S OF HEART PALPATIONS OR FEELINGS OF DISCOMFORT.
--- NOTE | 2022-07-03 15:22 | EDS_ITS ---
HPI History of Present Illness Chief Complaint: Chest Pain Informant: patient Narrative Narrative: Patient is an 82-year-old male with history of COPD (currently in pulmonary rehab) as well as hyperlipidemia presenting with palpitations. Patient states has been going on for the past week. He states he will have episodes where he feels lightheaded and dizzy and when he goes to check his pulse he feels that they will be 2-3 heartbeats and then a pause. He notes the symptoms are worse at rest and better when he is active. When he has these episodes he does feel he is breathing harder. He states he has 2-3 episodes a day. Notes he has a slight headache associate with it. Denies any recent immobilization, leg swelling or history of DVT/PE. Is not on any blood thinners. States at 1 point he had an episode of chest pain and had a cardiac evaluation including a cath which was normal they never found the cause of his symptoms. Denies any recent weight change, night sweats are changes bowels. Denies any black or blood in his stool. No other complaints at this time. [facility] Medical History COPD (chronic obstructive pulmonary disease) Hypercholesteremia Home Medications oxybutynin chloride 5 mg tablet,extended release 24 hr 5 mg PO DAILY 07/03/22 [History Last Taken Unknown] simvastatin 10 mg tablet 20 mg PO 07/03/22 [History Last Taken Unknown] Allergy/AdvReac Type Severity Reaction Status Date / Time No Known Allergies Allergy Verified 07/03/22 14:27 Social History Smoking Status: Former smoker ROS ROS ED Constitutional Constitutional ED: Denies chills or fever(s) Eyes Eyes: Denies blurry vision or change in vision Cardiovascular Cardiovascular: Reports as per HPI and palpitations; Denies chest pain Respiratory/Chest Respiratory/Chest: Denies cough or dyspnea Gastrointestinal Gastrointestinal: Denies abdominal pain, nausea or vomiting Musculoskeletal Musculoskeletal: Denies arthralgias or myalgias Integumentary Denies rash Neurologic Neurologic: Denies headache(s), paresthesias or weakness Psychiatric Psychiatric: Denies anxiety Hematologic/Lymphatic Hematologic/Lymphatic: Denies easy bleeding or easy bruising EXAM Physical Exam Const Vital Signs: 07/03/22 12:54 07/03/22 14:26 07/03/22 14:26 Temperature 97 F L Temperature Source Temporal Pulse Rate 80 60 Respiratory Rate 18 17 Respiratory Effort Blood Pressure 163/112 H 144/83 H Blood Pressure Mean 129 103 Pulse Ox 95 96 97 Oxygen Delivery Method Room Air Room Air Room Air 07/03/22 14:28 07/03/22 16:11 Temperature Temperature Source Pulse Rate 57 L Respiratory Rate 17 Respiratory Effort Normal Non-Labored Blood Pressure 149/83 H Blood Pressure Mean 105 Pulse Ox 97 Oxygen Delivery Method Room Air Positive well nourished and well developed General Appearance ED: well developed and NAD HEENT Reports moist mucous membranes normocephalic and atraumatic Eyes PERRL Neck supple Neck Narrative: + JVD Resp normal respiratory effort and clear to auscultation bilaterally Cardio regular rate, regular rhythm and no murmurs Peripheral Pulses: pulses 2+ throughout GI normal to inspection, nondistended, normoactive bowel sounds and soft to palpation Extremity normal to inspection General Extremety ED: Negative for edema General Extremity: Negative for edema Neuro oriented x3 Sensorium / Orientation: awake Motor Exam: Negative for general weakness Psych mental status grossly normal Skin no rashes or lesions noted and no wounds MDM MDM MDM Narrative Medical decision making narrative: Patient is evaluated for episodes of palpitation corresponding with lightheadedness and dizziness. Is been going on for the past week. EKG and telemetry are pertinent for PACs however patient is largely asymptomatic currently. He does have a resting bradycardia on telemetry however he states he has a history of that. High-sensitivity troponin is normal at 8. He is not having chest pain do not think this is ACS equivalent. I do not think prolonged trending of troponins is indicated. D-dimer is normal at 0.39 and given that he is low risk per Wells criteria I do not think a CTA is indicated. He does not have any anemia or leukocytosis. Does not have any significant electrolyte abnormalities and his CK is normal. The exact cause of his palpitations is not clear. I did discuss the case with cardiology, Dr. Melendez, who is agreeable to set him up with a 24-hour Holter monitor. We will follow-up outpatient with PCP and ultimately follow-up with cardiology however and will likely be a couple weeks to a month before he can get in. Patient is agreeable this plan of care. He is offered admission but declines. Is given strict return precautions. Patient and verbalized agreement understand this plan. Discharged home in stable condition. Lab Data Attestation: I reviewed the patient's lab results. Labs: Laboratory Results - last 24 hr 07/03/22 07/03/22 07/03/22 13:10 13:10 13:10 WBC 8.6 RBC 4.04 L Hgb 13.4 Hct 39.3 L MCV 97.3 H MCH 33.2 H MCHC 34.1 RDW Std Deviation 44.3 H RDW Coeff of Joss 12.3 Plt Count 164 MPV 10.0 Immature Gran % (Auto) 0.200 Neut % (Auto) 62.2 Lymph % (Auto) 24.1 Howell % (Auto) 11.7 H Eos % (Auto) 1.3 Baso % (Auto) 0.5 Absolute Neuts (auto) 5.3 Absolute Lymphs (auto) 2.06 Nucleated RBC % 0 D-Dimer Quant (PE/DVT) Sodium 135 L Potassium 4.0 Chloride 105 Carbon Dioxide 28.0 Anion Gap 2 L BUN 12 Creatinine 0.91 Estim Creat Clear Calc 66.85 Est GFR (MDRD) Af Amer 103 Est GFR (MDRD) Non-Af 85 BUN/Creatinine Ratio 13.2 Glucose 116 H Calcium 9.2 Troponin I High Sens 8 TSH 2.41 07/03/22 15:00 WBC RBC Hgb Hct MCV MCH MCHC RDW Std Deviation RDW Coeff of Joss Plt Count MPV Immature Gran % (Auto) Neut % (Auto) Lymph % (Auto) [place]ell % (Auto) Eos % (Auto) Baso % (Auto) Absolute Neuts (auto) Absolute Lymphs (auto) Nucleated RBC % D-Dimer Quant (PE/DVT) 0.39 Sodium Potassium Chloride Carbon Dioxide Anion Gap BUN Creatinine Estim Creat Clear Calc Est GFR (MDRD) Af Amer Est GFR (MDRD) Non-Af BUN/Creatinine Ratio Glucose Calcium Troponin I High Sens TSH Radiography Diagnostic Testing: Clinical Impression(s) from Imaging Studies Chest X-Ray 07/03/22 14:45 IMPRESSION: There are no acute findings. Electronically Signed: Max Hester MD at 15:00 EDT , Rhythm Strip Rhythm Strip: Sinus Rhythm Rate: 64 Ectopy: PAC(s) EKG Initial EKG: Attestation: I personally reviewed and interpreted this EKG as follows: Interpretation: Sinus Rhythm Comments: Sinus rhythm with PACs and aberrant conduction Right bundle branch block Normal axis Normal ST segments Discharge Plan Triage Chief Complaint: Chest Pain ED Provider: Vivi Quiros Dx/Rx/DC Orders Clinical Impression: Heart palpitations, PAC (premature atrial contraction) Instructions: ED About Arrhythmias, ED Palpitations Prescriptions: No Action simvastatin 10 mg tablet 20 mg PO Label Comments: 2 (TWO) TABLET BY MOUTH EVERY OTHER DAY Rx Instructions: TAKEN EVERY OTHER DAY PER PT. oxybutynin chloride 5 mg tablet extended release 24hr 5 mg PO DAILY Label Comments: TAKE 1 TAB DAILY IN THE MORNING FOR URINARY URGENCY SYMPTOMS Primary Care Provider: Cameron Woods Referrals: Mio Melendez MD [Med Staff - Active Staff] - As soon as possible Cameron Woods MD [Primary Care Provider] - Activity Restrictions/Additional Instructions: Your telemetry today showed PACs (premature atrial complexes). You have been set up with a Holter monitor. Please return this after 24 hours. This to be reviewed by cardiology. Follow-up with your primary care doctor next week as scheduled. I do recommend he follow-up with cardiology and call the office to make an appointment however likely be a couple weeks to a month before he can be seen. If you have a progression or worsening your symptoms please return to the emergency room. Disposition Disposition: Home, Self Care
[2022-07-03 15:24] LABS: D-Dimer Quantitative (DVT/PE) 0.39 FEU/ug/m (0.27-0.49)
[2022-07-03 15:43] LABS: Thyroid Stim Hormone (TSH) 2.41 uIU/mL (0.358-3.74)
[2022-07-03 16:11] VITALS: BP 149/83; PULSE 57; RESP 17; O2SAT 97
[2022-07-03 16:21] VITALS: BP 157/86; PULSE 53; RESP 20; O2SAT 96
== END 2022-07-03 16:26 | disposition home or self-care (01) ==
PROVIDERS: Emergency Provider Emergency Medicine; PCP Family Medicine; Visit Provider Emergency Medicine
DX: I49.1 Atrial premature depolarization (principal); J44.9 Chronic obstructive pulmonary disease, unspecified; E78.00 Pure hypercholesterolemia, unspecified; Z79.899 Other long term (current) drug therapy; Z87.891 Personal history of nicotine dependence
CPT/HCPCS: 71045; 80048; 84443; 84484; 85025; 85379; 93005; 93225; 93226; 99284; A4216

== ENCOUNTER → 2022-07-03 | Outpatient (CLI) | payer MEDICARE, SELFPAY | END | disposition home or self-care (01) | LOC: PSN 07-07 09:17 | PROVIDERS: PCP Family Medicine; Visit Provider Emergency Medicine | DX: R00.2 Palpitations (principal) ==

== ENCOUNTER 2022-08-05 08:00 | Outpatient (RCR) | payer SELFPAY | END 2022-08-06 23:59 | LOC: PR 08:00 | PROVIDERS: PCP Family Medicine; Referring Provider Family Medicine; Visit Provider Family Medicine | DX: Z00.00 Encounter for general adult medical examination without abnormal findings (principal) ==

== ENCOUNTER 2022-09-04 08:00 | Outpatient (RCR) | payer SELFPAY | END 2022-09-05 23:59 | LOC: PR 08:00 | PROVIDERS: PCP Family Medicine; Referring Provider Family Medicine; Visit Provider Family Medicine | DX: Z00.00 Encounter for general adult medical examination without abnormal findings (principal) ==

== ENCOUNTER 2022-10-02 08:00 | Outpatient (RCR) | payer SELFPAY | END 2022-10-06 23:59 | LOC: PR 08:00 | PROVIDERS: PCP Family Medicine; Referring Provider Family Medicine; Visit Provider Family Medicine | DX: Z00.00 Encounter for general adult medical examination without abnormal findings (principal) ==

== ENCOUNTER 2022-11-06 08:00 | Outpatient (RCR) | payer SELFPAY | END 2022-11-06 23:59 | LOC: PR 08:00 | PROVIDERS: PCP Family Medicine; Referring Provider Family Medicine; Visit Provider Family Medicine | DX: Z00.00 Encounter for general adult medical examination without abnormal findings (principal) ==

== ENCOUNTER → 2022-11-25 | Outpatient (CLI) | payer MEDICARE, SELFPAY ==
[2022-11-25 12:20] LABS: Hematocrit 38.6 % (40-54); Hemoglobin 12.9 g/dL (13.0-16.5); Mean Corp Hgb Conc 33.4 g/dL (32-36); Mean Corpuscular Hgb 33.3 pg (27.0-32.0); Mean Corpuscular Volume 99.7 fL (80-94); Mean Platelet Vol. 10.7 fl (6.2-12.0); Platelet Count 153 K/mm3 (150-450); RBC Distribution Width CV 12.6 % (11.6-14.6); RBC Distribution Width SD 46.9 fl (35.1-43.9); Red Blood Count 3.87 M/mm3 (4.6-6.2); White Blood Count 6.8 K/mm3 (4.4-11.0)
[2022-11-25 12:41] LABS: ALB/GLOB Ratio 1.1 RATIO (0.9-2.4); AST(SGOT) 26 U/L (15-37); Alanine Aminotransfer ALT/SGPT 30 U/L (16-61); Albumin, Serum 3.7 g/dL (3.2-5.0); Alkaline Phosphatase 46 U/L (45-117); Anion Gap 3 (5-15); BUN 13 mg/dL (7-18); BUN/Creat Ratio 17.1 RATIO (10-20); Calcium,Total 8.6 mg/dL (8.5-10.1); Chloride 104 mmol/L (98-107); Creatinine, Serum 0.76 mg/dL (0.70-1.30); EST Glomerular Filtration Rate 105 mL/min (>60); Est Glom Filt Rate - Afr Amer 127 mL/min (>60); Globulin 3.3 g/dL (2.2-4.2); Glucose 107 mg/dL (74-106); Magnesium 2.6 mg/dL (1.6-2.6); Potassium 4.1 mmol/L (3.5-5.1); Sodium Level 137 mmol/L (136-145)
[2022-11-25 13:03] LABS: Hemoglobin A1c 5.3 % (3.8-5.6)
[2022-11-27 12:44] LABS: Ferritin 102 ng/mL (26-388)
== END | disposition home or self-care (01) ==
LOC: MFPLAB 09:34
PROVIDERS: PCP Family Medicine; Visit Provider Family Medicine
DX: J44.9 Chronic obstructive pulmonary disease, unspecified (principal); R00.2 Palpitations; R73.01 Impaired fasting glucose; D64.9 Anemia, unspecified
CPT/HCPCS: 36415; 80053; 82728; 83036; 83735; 85027

== ENCOUNTER 2022-12-04 08:00 | Outpatient (RCR) | payer SELFPAY | END 2022-12-06 23:59 | LOC: PR 08:00 | PROVIDERS: PCP Family Medicine; Referring Provider Family Medicine; Visit Provider Family Medicine | DX: Z00.00 Encounter for general adult medical examination without abnormal findings (principal) ==

== ENCOUNTER 2023-01-06 08:00 | Outpatient (RCR) | payer SELFPAY | END 2023-01-06 23:59 | LOC: PR 08:00 | PROVIDERS: PCP Family Medicine; Referring Provider Family Medicine; Visit Provider Family Medicine | DX: Z00.00 Encounter for general adult medical examination without abnormal findings (principal) ==

== ENCOUNTER 2023-02-05 08:00 | Outpatient (RCR) | payer SELFPAY | END 2023-02-05 23:59 | LOC: PR 08:00 | PROVIDERS: PCP Family Medicine; Referring Provider Family Medicine; Visit Provider Family Medicine | DX: Z00.00 Encounter for general adult medical examination without abnormal findings (principal) ==

== ENCOUNTER → 2023-02-20 | Outpatient (CLI) | payer MEDICARE, SELFPAY ==
--- NOTE | 2023-02-20 11:31 | RAD_ITS ---
STUDY: X-RAY - RIGHT FOOT CLINICAL: Male, 82 years old. Injury. Concern for fracture. TECHNIQUE: 3 view(s) of the foot. COMPARISON: None. FINDINGS: Osteopenia. Inferior calcaneal spur. 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 Diffuse mild soft tissue swelling. RAD/Foot min 3 Views IMPRESSION: Osteopenia with calcaneal spur, osteoarthritic changes and diffuse soft tissue swelling. No acute osseous abnormality identified. Electronically Signed: Antione Awad MD at 13:31 EST ,
== END | disposition home or self-care (01) ==
LOC: MTRAD 11:28
PROVIDERS: PCP Family Medicine; Referring Provider Family Medicine; Visit Provider Family Medicine
DX: S99.921A Unspecified injury of right foot, initial encounter (principal)
CPT/HCPCS: 73630

== ENCOUNTER 2023-02-26 08:00 | Outpatient (RCR) | payer SELFPAY | END 2023-03-08 23:59 | LOC: PR 08:00 | PROVIDERS: PCP Family Medicine; Referring Provider Family Medicine; Visit Provider Family Medicine | DX: Z00.00 Encounter for general adult medical examination without abnormal findings (principal) ==

== ENCOUNTER → 2023-03-17 | Outpatient (CLI) | payer MEDICARE, SELFPAY ==
[2023-03-17 10:20] LABS: Hemoglobin 13.3 g/dL (13.0-16.5); Mean Corp Hgb Conc 32.4 g/dL (32-36); Mean Corpuscular Hgb 32.4 pg (27.0-32.0); Mean Corpuscular Volume 99.8 fL (80-94); Mean Platelet Vol. 9.6 fl (6.2-12.0); Platelet Count 227 K/mm3 (150-450); RBC Distribution Width CV 12.2 % (11.6-14.6); RBC Distribution Width SD 44.7 fl (35.1-43.9); Red Blood Count 4.11 M/mm3 (4.6-6.2); White Blood Count 14.7 K/mm3 (4.4-11.0)
[2023-03-17 10:50] LABS: ALB/GLOB Ratio 0.9 RATIO (0.9-2.4); AST(SGOT) 30 U/L (15-37); Alanine Aminotransfer ALT/SGPT 40 U/L (16-61); Alkaline Phosphatase 55 U/L (45-117); Anion Gap 4 (5-15); BUN 16 mg/dL (7-18); BUN/Creat Ratio 18.3 RATIO (10-20); Calcium,Total 8.6 mg/dL (8.5-10.1); Chloride 102 mmol/L (98-107); Creatinine, Serum 0.87 mg/dL (0.70-1.30); EST Glomerular Filtration Rate 89 mL/min (>60); Est Glom Filt Rate - Afr Amer 108 mL/min (>60); Ferritin 210 ng/mL (26-388); Globulin 3.4 g/dL (2.2-4.2); Glucose 107 mg/dL (74-106); PSA,Total - Annual Screen 2.68 ng/mL (0.00-4.00); Potassium 3.6 mmol/L (3.5-5.1); Protein, Total 6.4 g/dL (6.4-8.2); Sodium Level 136 mmol/L (136-145)
== END | disposition home or self-care (01) ==
LOC: MTLAB 08:59
PROVIDERS: PCP Family Medicine; Referring Provider Family Medicine; Visit Provider Family Medicine
DX: Z12.5 Encounter for screening for malignant neoplasm of prostate (principal); J44.9 Chronic obstructive pulmonary disease, unspecified; D64.9 Anemia, unspecified
CPT/HCPCS: 36415; 80053; 82728; 84153; 85027; G0103

== ENCOUNTER 2023-04-07 08:00 | Outpatient (RCR) | payer SELFPAY | END 2023-04-08 23:59 | LOC: PR 08:00 | PROVIDERS: PCP Family Medicine; Visit Provider Family Medicine | DX: Z00.00 Encounter for general adult medical examination without abnormal findings (principal) ==

== ENCOUNTER → 2023-04-27 | Outpatient (CLI) | payer MEDICARE, SELFPAY ==
[2023-04-27 10:22] LABS: Mucous, Urine 0 SEEN /hpf (<or=2+); Squamous Epithelial Cells - UA 0 SEEN /hpf (0-5)
--- NOTE | 2023-04-27 10:35 | RAD_ITS ---
INDICATION: pain, constipation EXAMINATION/TECHNIQUE: X-RAY - XR Abdomen W/ Decub and/or Erect Views COMPARISON: No relevant prior comparison study available FINDINGS: BOWEL GAS PATTERN: Non-obstructive. No bowel or stomach distention. FREE AIR: Not assessed on a single supine view. ORGANOMEGALY: Not seen. CALCIFICATIONS: No abnormal calcifications observed. LOWER CHEST: No acute pathology. BONES AND SOFT TISSUES: Degenerative changes of the lower thoracic and lumbar spine. RAD/Abd Inc Decub and/or Erect IMPRESSION: Non-obstructive bowel gas pattern. Electronically Signed: Dannie Landry MD at 9:33 EST ,
--- OUTSIDE RECORDS SUMMARY | 2023-04-27 10:47 | XMS RPT_ITS | CCD ---
Author Name Unknown Address [address] [place] [address] [address] [place] [address] Organization [facility] Care Team Providers Care Electrician Helper Name Role Phone MARKIE COLLIER Unavailable Unavailable Results Test Name Value Interpretation Reference Range Facil ity Encounters Encounter Date Encounter Type Care Provider Facility Start: 12-07-2017 End: 12-07-2017 Patient encounter MARKIE COLLIER Facility:B Payers Date Payer Category Payer Medicare [id number] 1940 Unknown [id number] Summary Purpose Family History No Family History Records Found Advance Directives No Advanced Directives Records Found Additional Source Comments (unrecognized sect ion and content) No Status Records Found INFORMATION SOURCE (unrecogn ized section and content) FOR RECORDS PERTAINING TO PATIENTS WHO ARE OR HAVE BEEN ENROLLED IN A CHEMICAL DEPENDENCY/SUBSTANCEABUSE PROGRAM, SOME INFORMATION MAY BE OMITTED. This clinical summary was aggregated from multiple sources. Caution should be exercised in using it in the provision of clinical care. This summary normalizes information from multiple sources, and as a consequence, information in this document may materially change the coding, format and clinical context of patient data. In addition, data may be omitted in some cases. CLINICAL DECISIONS SHOULD BE BASED ON THE PRIMARY CLINICAL RECORDS. [facility]. provides no warranty or guarantee of the accuracy or completeness of information in this document.
[2023-04-27 12:37] LABS: Absolute Lymphocyte Count 1.56 X10^3/uL (0.83-4.51); Absolute Neutrophil Count 6.9 X10^3/uL (2.0-7.7); Basophil# 0.06 X10^3/uL; Basophil% 0.6 % (0-1); Color, Urine Yellow (Yellow); Eosinophil# 0.14 X10^3/uL; Eosinophils% 1.4 % (0-5); Glucose, Dipstick Normal (Normal); Hematocrit 39.1 % (40-54); Hemoglobin 12.6 g/dL (13.0-16.5); Ketone-Dipstick 15 mg/dl (Negative); Leukocyte Esterase-Dipstick 500 /ul (Negative); Lymphocyte # 1.56 X10^3/ul (0.83-4.51); Lymphocyte % 15.8 % (19-41); Mean Corp Hgb Conc 32.2 g/dL (32-36); Mean Corpuscular Hgb 31.9 pg (27.0-32.0); Mean Platelet Vol. 10.5 fl (6.2-12.0); Monocyte# 1.22 X10^3/uL; Monocyte% 12.3 % (0-10); NRBC Flagged by Analyzer 0 % (0-5); Neutrophil # 6.87 X10^3/uL (2.7-7.7); Neutrophil % 69.5 % (47-70); Nitrite-Dipstick Positive (Negative); Occult Blood-Urine 10 /ul (Negative); Platelet Count 218 K/mm3 (150-450); Protein-Dipstick 30 mg/dl (Negative); RBC Distribution Width CV 12.3 % (11.6-14.6); RBC Distribution Width SD 44.8 fl (35.1-43.9); Red Blood Count 3.95 M/mm3 (4.6-6.2); Specific Gravity, Urine 1.015 (1.002-1.030); Urine Bilirubin Dipstick Negative (Negative); Urine Clarity Sl. Cloudy (Clear); Urine Urobilinogen 1 mg/dl (Normal); White Blood Count 9.9 K/mm3 (4.4-11.0)
[2023-04-27 12:42] LABS: ALB/GLOB Ratio 0.9 RATIO (0.9-2.4); AST(SGOT) 296 U/L (15-37); Alanine Aminotransfer ALT/SGPT 377 U/L (16-61); Albumin, Serum 3.2 g/dL (3.2-5.0); Alkaline Phosphatase 522 U/L (45-117); Anion Gap 5 (5-15); BUN 10 mg/dL (7-18); BUN/Creat Ratio 12.2 RATIO (10-20); Calcium,Total 9.2 mg/dL (8.5-10.1); Chloride 99 mmol/L (98-107); Creatinine, Serum 0.82 mg/dL (0.70-1.30); EST Glomerular Filtration Rate 96 mL/min (>60); Est Glom Filt Rate - Afr Amer 116 mL/min (>60); Globulin 3.7 g/dL (2.2-4.2); Glucose 110 mg/dL (74-106); Protein, Total 6.9 g/dL (6.4-8.2); Sodium Level 133 mmol/L (136-145)
[2023-04-27 12:49] LABS: White Blood Cells 50-100 SEEN /hpf (0-5)
[2023-04-27 12:50] LABS: Bacteria 4+ /hpf (None Seen); Red Blood Cells-Urine 0-5 SEEN /hpf (0-5)
== END | disposition home or self-care (01) ==
PROVIDERS: Family Medicine; PCP Family Medicine; Referring Provider Family Medicine; Visit Provider Family Medicine
DX: K59.00 Constipation, unspecified (principal); R10.9 Unspecified abdominal pain
CPT/HCPCS: 36415; 74019; 80053; 81001; 85025; 87077; 87086; 87088; 87186

== ENCOUNTER 2023-05-07 08:00 | Outpatient (RCR) | payer SELFPAY | END 2023-05-07 23:59 | LOC: PR 08:00 | PROVIDERS: PCP Family Medicine; Visit Provider Family Medicine | DX: Z00.00 Encounter for general adult medical examination without abnormal findings (principal) ==

== ENCOUNTER 2023-05-08 09:18 | Inpatient (IN) | payer MEDICARE, SELFPAY ==
[2023-05-08] VITALS (7 sets, daily range): BP systolic 114–168; BP diastolic 68–90; PULSE 48–65; RESP 14–21; TEMP 36.1–36.6; O2SAT 93–97; BMI 25.0
--- NOTE | 2023-05-08 09:24 | CT_ITS ---
STUDY: CT ABDOMEN AND PELVIS WITH CONTRAST REASON FOR EXAM: Male, 82 years old. Jaundice RADIATION DOSAGE (If Supplied By Facility): CTDIvol = ( 13.40 ) mGy, DLP = ( 484.21 ) mGycm TECHNIQUE: Transaxial images were obtained from the dome of the diaphragm to the symphysis pubis without oral contrast. IV 100mL Isovue-300 was administered. Sagittal and coronal images were reconstructed. Individualized dose optimization techniques were used for this CT. COMPARISON: Comparison is made with prior study dated March 31, 2019. FINDINGS: Increased interstitial markings with areas of a subchondral cystic changes in the right lower lobe and right middle lobe suggestive of chronic interstitial fibrosis. Coronary artery calcification. There is decreased attenuation of the liver consistent with steatosis. There is evidence of intrahepatic biliary ductal dilatation. There is distention of the gallbladder. The common bile duct is dilated measuring 1.3 cm. There is dilatation of the pancreatic duct. No evidence of choledocholithiasis. Normal spleen. Questionable mass in the head of the pancreas. Correlation with ERCP is recommended to rule out any pancreatic mass or mass in the region of the ampulla of Vater. Normal bilateral adrenal glands. Normal right kidney. Normal left kidney. Normal visualized stomach. Normal small intestine. There are multiple colonic diverticula consistent with diverticulosis. The appendix is visualized and appears normal. There is diffuse atherosclerotic calcification of the abdominal aorta. Infrarenal abdominal aortic aneurysm with a transverse dimension of 3.7 cm. Normal inferior vena cava. Normal retroperitoneum. The urinary bladder is distended with evidence of mild bladder wall thickening. There is evidence of a 1.8 cm diverticulum in the posterior right base of the urinary bladder. Prostatic enlargement with indentation of the bladder base. Central prostatic calcifications. Normal abdominal wall. There are diffuse degenerative changes of the visualized lumbar spine. CT/Abdomen/Pelvis W IV Cont ONLY IMPRESSION: Dilated intra and extrahepatic biliary ducts as well as the pancreatic duct. I suspect the mass lesion in the head of the pancreas. Correlation with the ERCP and possible ampulla of Vater mass should be ruled out. Distended gallbladder. Sigmoid diverticulosis. Distended urinary bladder with the right-sided urinary bladder diverticulum. Electronically Signed: Lazaro Abebe MD at 11:50 EST ,
--- NOTE | 2023-05-08 09:30 | EX.ED.DYSGE1 ---
HPI History of Present Illness Chief Complaint: Abn Labs Informant: patient Onset/Context/Timing Onset: Days Context: Gradual Onset Timing: Continuous Current Severity: Moderate Maximum Severity: Moderate Narrative Narrative: 82-year-old male history of COPD quit smoking 30 years ago. Only prior abdominal surgeries or hernias x 2 he thinks he may have taken his appendix with one of the hernia surgeries. He has been jaundiced for a week. No prior history. No history of liver disease. Still has his gallbladder. Denies any fever or chills. Denies any vomiting or diarrhea. Denies any abdominal pain. Prior similar symptoms: No Recent Illness/Hospitalization: No PFSH PFS Medical History COPD (chronic obstructive pulmonary disease) Hypercholesteremia Home Medications oxybutynin chloride 5 mg tablet,extended release 24 hr 5 mg PO DAILY 07/03/22 [History Last Taken Unknown] simvastatin 10 mg tablet 20 mg PO QODAY 07/03/22 [History Last Taken Unknown] amlodipine 2.5 mg tablet 2.5 mg PO QHS 05/08/23 [History Last Taken Unknown] Allergy/AdvReac Type Severity Reaction Status Date / Time No Known Allergies Allergy Verified 05/08/23 09:20 Social History Smoking Status: Former smoker ROS ROS ED ROS Narrative Jaundice. Review of Systems ROS Unobtainable: Denies due to encephalopathy Constitutional Constitutional ED: Denies chills or fever(s) Eyes Eyes: Denies blurry vision ENT ENT ED: Denies ear pain Cardiovascular Cardiovascular: Denies chest pain Respiratory/Chest Respiratory/Chest: Denies cough Gastrointestinal Gastrointestinal: Denies abdominal pain, constipation, diarrhea, melena, nausea or vomiting Genitourinary Genitourinary ED: Denies dysuria or hematuria Musculoskeletal Musculoskeletal: Denies arthralgias Integumentary Denies abscess or Abrasions Neurologic Neurologic: Denies headache(s) Psychiatric Psychiatric: Denies anxiety or depression Endocrine Endocrinology: Denies cold intolerance Hematologic/Lymphatic Hematologic/Lymphatic: Reports none Allergic/Immunologic Allergic/Immunologic ED: Denies mouth swelling, tongue swelling or urticaria EXAM Physical Exam Narrative Exam Narrative: 82-year-old male jaundiced and yellow. Vital signs stable afebrile. Does not look septic or toxic. No distress. H EENT exam scleral icterus. Moist with membranes. Neck nontender no lymphadenopathy. Lungs clear to auscultation bilaterally. Heart regular rhythm rate about 65 no murmur. Abdomen soft, nontender, nondistended, normal bowel sounds without peritoneal signs. Extremities moves all 4. Nontender no edema. Skin jaundiced. Back nontender. Neurologically is awake and alert with no focal motor deficits. Good strength in his legs and hands. Answering questions following commands. Const Vital Signs: 05/08/23 09:20 05/08/23 09:35 05/08/23 09:35 Temperature 97.3 F L 97.4 F L Temperature Source Temporal Temporal Pulse Rate 65 50 L 55 L Respiratory Rate 14 17 20 H Respiratory Effort Respiratory Pattern Blood Pressure 114/90 H 164/68 H 164/68 H Blood Pressure Mean 98 100 100 Pulse Ox 97 97 97 Oxygen Delivery Method Room Air Room Air Room Air 05/08/23 09:37 Temperature Temperature Source Pulse Rate Respiratory Rate Respiratory Effort Normal Non-Labored Respiratory Pattern Normal Blood Pressure Blood Pressure Mean Pulse Ox Oxygen Delivery Method Positive well nourished and well developed; Negative for cachectic, contractures or unkempt General Appearance ED: well developed and NAD; Negative for unkempt, cachectic, contractures, cyanotic, diaphoretic or pallor Nutritional Appearance: Negative for cachectic HEENT Reports moist mucous membranes; Denies dry mucous membranes Negative for trauma or tenderness Mouth ED: No dry mucous membranes Mouth: No dry mucous membranes Eyes PERRL and EOMs intact bilaterally General Eye ED: Yes scleral icterus; Negative for pale conjunctiva Neck no lymphadenopathy, supple and no JVD General: Negative for tenderness Lymph Lymphatic: Negative for other Chest Wall inspection of chest normal and palpation of chest normal Chest: Negative for other Resp normal respiratory effort and clear to auscultation bilaterally Effort and Inspection: Negative for retractions Auscultation: Negative for rales, rhonchi or wheezes Cardio regular rate, regular rhythm, S1 normal heart sound, S2 normal heart sound and no murmurs Palpation: Negative for palpable S3 or palpable S4 Rate: Negative for bradycardia or tachycardic Rhythm: Negative for abnormal rhythm GI normal to inspection, nondistended, normoactive bowel sounds, non-tender, non-distended and no masses; Negative for hepatosplenomegaly Inspection: Negative for abdominal distention Auscultation: normoactive bowel sounds Palpation: soft; Negative for tender, guarding, mass or rebound tenderness present Back/Spine no CVA tenderness General Back: Negative for CVA tenderness Cervical Spine: Negative for cervical spine tenderness Thoracic Spine / Upper Back: Negative for thoracic spinal tenderness or paraspinal muscle tenderness Lumbar Spine / Lower Back: Negative for lumbar spinal tenderness Extremity normal to inspection General Extremety ED: Negative for edema or tenderness General Extremity: Negative for edema Neuro oriented x3 and CN's II-XII intact bilaterally Sensorium / Orientation: alert; Negative for orientation impaired, lethargic or stuporous Motor Exam: strength 5/5 throughout Psych mental status grossly normal Appearance: Negative for unkempt Attitude: No agitated Mood & Affect: Negative for depressed, anxious or tearful Skin no rashes or lesions noted, no wounds and skin turgor normal Skin Narrative: Jaundice. General Skin Exam: elasticity normal and jaundice; Negative for pallor Lesions: No lesion noted Rashes: No rashes noted Trauma: Negative for abrasion Wounds: Negative for wounds noted MDM MDM MDM Narrative Medical decision making narrative: 82-year-old male with history of painless jaundice for a week. CAT scan and labs are pending. He is not having any pain nor any nausea. He does not need any medication at this time. Differential would include pancreatic tumor, biliary mass, biliary obstruction from gallstones excetra. History & Record Review Discussion w/independent historian: Patient Additional record(s) reviewed:: Prior inpatient record, Prior outpatient record, Prior ED visit and Prior labs Lab Data Attestation: I reviewed the patient's lab results. Lab results narrative: CBC shows a white count 9. H&H 13 and 37. Platelets 210. Electrolytes show sodium 131. Gap 5. Normal BUN 9 creatinine 0.87. Liver enzymes show total bilirubin of 17 AST at 333, ALT 426 and alk phos of 648. Lipase is just mildly elevated at 92. Labs: Laboratory Results - last 24 hr 05/08/23 09:40 WBC 9.3 RBC 4.00 L Hgb 13.0 Hct 37.9 L MCV 94.8 H MCH 32.5 H MCHC 34.3 RDW Std Deviation 48.9 H RDW Coeff of Joss 14.1 Plt Count 210 MPV 11.2 Immature Gran % (Auto) 0.600 Neut % (Auto) 71.4 H Lymph % (Auto) 12.5 L [place] % (Auto) 13.3 H Eos % (Auto) 1.3 Baso % (Auto) 0.9 Absolute Neuts (auto) 6.6 Absolute Lymphs (auto) 1.16 Nucleated RBC % 0 Sodium 131 L Potassium 4.2 Chloride 99 Carbon Dioxide 27.0 Anion Gap 5 BUN 9 Creatinine 0.87 Estim Creat Clear Calc 67.72 Est GFR (MDRD) Af Amer 109 Est GFR (MDRD) Non-Af 90 BUN/Creatinine Ratio 10.4 Glucose 98 Calcium 9.2 Total Bilirubin 17.70 H* AST 333 H ALT 426 H Alkaline Phosphatase 648 H Total Protein 7.0 Albumin 3.1 L Globulin 3.9 Albumin/Globulin Ratio 0.8 L Lipase 92 H Discharge Plan Triage Chief Complaint: Abn Labs ED Provider: Epifanio Suarez Dx/Rx/DC Orders Clinical Impression: Painless jaundice, History of COPD Prescriptions: No Action simvastatin 10 mg tablet 20 mg PO QODAY Patient Comments: 2 (TWO) TABLET BY MOUTH EVERY OTHER DAY Rx Instructions: TAKEN EVERY OTHER DAY PER PT. oxybutynin chloride 5 mg tablet extended release 24hr 5 mg PO DAILY Patient Comments: TAKE 1 TAB DAILY IN THE MORNING FOR URINARY URGENCY SYMPTOMS amlodipine 2.5 mg tablet 2.5 mg PO QHS Patient Comments: TAKE 1 TO 2 TABLETS BY MOUTH AT BEDTIME Primary Care Provider: Cameron Woods Referrals: Cameron Woods MD [Primary Care Provider] -
[2023-05-08 09:45] LABS: Absolute Lymphocyte Count 1.16 X10^3/uL (0.83-4.51); Absolute Neutrophil Count 6.6 X10^3/uL (2.0-7.7); Basophil# 0.08 X10^3/uL; Basophil% 0.9 % (0-1); Eosinophil# 0.12 X10^3/uL; Eosinophils% 1.3 % (0-5); Hematocrit 37.9 % (40-54); Lymphocyte # 1.16 X10^3/ul (0.83-4.51); Lymphocyte % 12.5 % (19-41); Mean Corp Hgb Conc 34.3 g/dL (32-36); Mean Corpuscular Hgb 32.5 pg (27.0-32.0); Mean Corpuscular Volume 94.8 fL (80-94); Mean Platelet Vol. 11.2 fl (6.2-12.0); Monocyte# 1.24 X10^3/uL; Monocyte% 13.3 % (0-10); NRBC Flagged by Analyzer 0 % (0-5); Neutrophil # 6.63 X10^3/uL (2.7-7.7); Neutrophil % 71.4 % (47-70); Platelet Count 210 K/mm3 (150-450); RBC Distribution Width CV 14.1 % (11.6-14.6); RBC Distribution Width SD 48.9 fl (35.1-43.9); White Blood Count 9.3 K/mm3 (4.4-11.0)
[2023-05-08 10:12] LABS: ALB/GLOB Ratio 0.8 RATIO (0.9-2.4); AST(SGOT) 333 U/L (15-37); Alanine Aminotransfer ALT/SGPT 426 U/L (16-61); Albumin, Serum 3.1 g/dL (3.2-5.0); Alkaline Phosphatase 648 U/L (45-117); Anion Gap 5 (5-15); BUN 9 mg/dL (7-18); BUN/Creat Ratio 10.4 RATIO (10-20); Calcium,Total 9.2 mg/dL (8.5-10.1); Chloride 99 mmol/L (98-107); Creatinine, Serum 0.87 mg/dL (0.70-1.30); EST Glomerular Filtration Rate 90 mL/min (>60); Est Glom Filt Rate - Afr Amer 109 mL/min (>60); Estimated Creatinine Clearance 67.72 ml/min; Globulin 3.9 g/dL (2.2-4.2); Glucose 98 mg/dL (74-106); Lipase 92 U/L (13-75); Potassium 4.2 mmol/L (3.5-5.1); Sodium Level 131 mmol/L (136-145)
--- OUTSIDE RECORDS SUMMARY | 2023-05-08 10:18 | XMS RPT_ITS | CCD ---
Author Name Unknown Address [address] [place] [address] [address] [place] [address] Organization [facility] Care Team Providers Care Trap Setter Name Role Phone MARKIE COLLIER Unavailable Unavailable Results Test Name Value Interpretation Reference Range Facil ity Encounters Encounter Date Encounter Type Care Provider Facility Start: 12-07-2017 End: 12-07-2017 Patient encounter MARKIE COLLIER Facility:B Payers Date Payer Category Payer Medicare [id number] 1940 Unknown [id number] Summary Purpose Family History No Family History [...] BE BASED ON THE PRIMARY CLINICAL RECORDS. [employer] [facility]. provides no warranty or guarantee of the accuracy or completeness of information in this document.
--- NOTE | 2023-05-08 12:02 | NURSING ---
DR JENNY MCCLELLAN
--- NOTE | 2023-05-08 12:59 | HP.PCM.HOS_ITS ---
HPI - General General Date of Admission: 05/08/23 Date of Service: 05/08/23 Chief Complaint: Jaundice HPI Narrative JENNIFER VILLAGRAN, is a 82 M who presents with a 2 to 3 days of jaundice. Had some outpatient labs concerning patient was sent to the emergency room. In the emergency room, his bilirubin was 17.7. Back in March it was 0.6 and on 04/27 was 2.6. Additionally his transaminases have elevated as well. CAT scan showed dilated intra and extrahepatic biliary duct as well as the pancreatic duct. Suspected mass lesion in the head of the pancreas. Distended gallbladder. Sigmoid diverticulosis. The ED physician reached out to Dr. Lee who will see the patient in consultation. [facility]LY [facility] Medical History COPD (chronic obstructive pulmonary disease) Hypercholesteremia Home Medications oxybutynin chloride 5 mg tablet,extended release 24 hr 5 mg PO DAILY 07/03/22 [History Last Taken Unknown] simvastatin 10 mg tablet 20 mg PO QODAY 07/03/22 [History Last Taken Unknown] amlodipine 2.5 mg tablet 2.5 mg PO QHS 05/08/23 [History Last Taken Unknown] Allergy/AdvReac Type Severity Reaction Status Date / Time No Known Allergies Allergy Verified 05/08/23 09:20 Social History (Updated 05/08/23 @ 13:[address] Cameron Bear DO) Smoking Status: Former smoker how long ago did patient quit smokin years ago alcohol intake: current alcohol intake frequency: 3 or more drinks per day Vital Signs Vital Signs Vital Signs: 05/08/23 09:20 05/08/23 09:35 05/08/23 09:35 Temperature 36.3 C L 36.3 C L Temperature Source Temporal Temporal Pulse Rate 65 50 L 55 L Respiratory Rate 14 17 20 H Respiratory Effort Respiratory Pattern Blood Pressure 114/90 H 164/68 H 164/68 H Blood Pressure Mean 98 100 100 Pulse Ox 97 97 97 Oxygen Delivery Method Room Air Room Air Room Air 05/08/23 09:37 05/08/23 10:30 05/08/23 10:30 Temperature 36.3 C L Temperature Source Temporal Pulse Rate 48 L 48 L Respiratory Rate 16 16 Respiratory Effort Normal Non-Labored Respiratory Pattern Normal Blood Pressure 145/75 H 145/75 H Blood Pressure Mean 98 98 Pulse Ox 96 94 Oxygen Delivery Method Room Air Room Air 05/08/23 12:00 05/08/23 12:00 05/08/23 12:52 Temperature 36.5 C L 36.1 C L Temperature Source Temporal Pulse Rate 52 L 55 L 61 Respiratory Rate 21 H 16 19 H Respiratory Effort Respiratory Pattern Blood Pressure 165/75 H 165/75 H 168/72 H Blood Pressure Mean 105 105 104 Pulse Ox 97 97 97 Oxygen Delivery Method Room Air Room Air Weight Weight: 77 kg Body Mass Index (BMI) 25.0 Physical Exam Const alert and no apparent distress Constitutional Narrative: Jaundiced. Afebrile. General Appearance: cooperative HEENT normocephalic and head/scalp atraumatic Eyes Eyes Narrative: Icterus. Glasses. Neck no lymphadenopathy Neck Narrative: No thyromegaly Resp normal respiratory effort, no retractions, no use of accessory muscles and clear to auscultation bilaterally Cardio regular rate, regular rhythm, S1 normal heart sound and S2 normal heart sound GI normal to inspection, nondistended, normoactive bowel sounds, soft to palpation, non-tender and non-distended Extremity normal to inspection Skin Skin Narrative: Marked jaundice in the head and torso. Pulm erythema. Neuro oriented x3 Neuro Narrative: No asterixis Sensorium / Orientation: awake and alert Psych affect normal Results Lab / Micro Data Attestation: I reviewed the patient's lab results. 05/08/23 09:40 05/08/23 09:40 Labs: Laboratory Results - last 24 hr 05/08/23 09:40: WBC 9.3, RBC 4.00 L, Hgb 13.0, Hct 37.9 L, MCV 94.8 H, MCH 32.5 H, MCHC 34.3, RDW Std Deviation 48.9 H, RDW Coeff of Joss 14.1, Plt Count 210, MPV 11.2, Immature Gran % (Auto) 0.600, Neut % (Auto) 71.4 H, Lymph % (Auto) 12.5 L, Clark % (Auto) 13.3 H, Eos % (Auto) 1.3, Baso % (Auto) 0.9, Absolute Neuts (auto) 6.6, Absolute Lymphs (auto) 1.16, Nucleated RBC % 0, Sodium 131 L, Potassium 4.2, Chloride 99, Carbon Dioxide 27.0, Anion Gap 5, BUN 9, Creatinine 0.87, Estim Creat Clear Calc 67.72, Est GFR (MDRD) Af Amer 109, Est GFR (MDRD) Non-Af 90, BUN/Creatinine Ratio 10.4, Glucose 98, Calcium 9.2, Total Bilirubin 17.70 H*, AST 333 H, ALT 426 H, Alkaline Phosphatase 648 H, Total Protein 7.0, Albumin 3.1 L, Globulin 3.9, Albumin/Globulin Ratio 0.8 L, Lipase 92 H Imaging Radiology Impression Abdomen/Pelvis CT 05/08/23 09:24 IMPRESSION: Dilated intra and extrahepatic biliary ducts as well as the pancreatic duct. I suspect the mass lesion in the head of the pancreas. Correlation with the ERCP and possible ampulla of Vater mass should be ruled out. Distended gallbladder. Sigmoid diverticulosis. Distended urinary bladder with the right-sided urinary bladder diverticulum. Electronically Signed: Lazaro Abebe MD at 11:50 EST , Assessment & Plan Assessment/Plan (1) Painless jaundice: (2) Pancreatic mass: PLAN: Plan Obstructive jaundice * Concerning could be due to pancreatic head mass. * GI consult for evaluation of an ERCP * N.p.o. Acute transaminitis * Secondary to likely the obstructive jaundice and would anticipate improvement with resolution of the obstruction Pancreatic mass * Concerning with the obstructive jaundice for malignancy * check an MRCP * Check a CA 19-9 and CEA * Cannot rule out need for biopsy Chronic conditions * COPD: Stable * Hyperlipidemia: Hold statin given the elevated transaminases * Hypertension: Stable. Continue with amlodipine. VTE prophylaxis moderate risk. SCDs. Holding off on chemical prophylaxis given the scheduled procedures and potential need for biopsy at this time. CODE STATUS: Addressed with the patient. Patient was to be full code. Charges/Coding Visit Charges Inpatient E&M: 20126 Init Hosp L3
--- NOTE | 2023-05-08 13:04 | NURSING ---
MED SURG JENNY PAINLESS JAUNDICE, PANC MASS
--- OUTSIDE RECORDS SUMMARY | 2023-05-08 13:08 | XMS RPT_ITS | CCD ---
Author Name Unknown Address [address] [place] [address] [address] [place] [address] Organization [facility] Care Team Providers Care Automotive Metalsmith Name Role Phone MARKIE COLLIER Unavailable Unavailable Results Test Name Value Interpretation Reference Range Facil ity Encounters Encounter Date Encounter Type Care Provider Facility Start: 12-07-2017 End: 12-07-2017 Patient encounter MARKIE COLLIER Facility:B Payers Date Payer Category Payer Medicare [id number] 1940 Unknown [id number] Summary Purpose Family History No Family History [...] BE BASED ON THE PRIMARY CLINICAL RECORDS. [employer] [facility]. provides no warranty or guarantee of the accuracy or completeness of information in this document.
--- OUTSIDE RECORDS SUMMARY | 2023-05-08 14:02 | XMS RPT_ITS | CCD ---
Author Name Unknown Address [address] [place] [address] [address] [place] [address] Organization [facility] Care Team Providers Care Supercalender Operator Name Role Phone MARKIE COLLIER Unavailable Unavailable Results Test Name Value Interpretation Reference Range Facil ity Encounters Encounter Date Encounter Type Care Provider Facility Start: 12-07-2017 End: 12-07-2017 Patient encounter MARKIE COLLIER Facility:B Payers Date Payer Category Payer Medicare [id number] 1940 Unknown [id number] Summary Purpose Family History No Family History [...] BE BASED ON THE PRIMARY CLINICAL RECORDS. [employer] [facility]. provides no warranty or guarantee of the accuracy or completeness of information in this document.
--- NOTE | 2023-05-08 15:00 | MRI_ITS ---
MRCP and MR abdomen without contrast 05/08/2023 5:27 PM COMPARISON: CT same date CLINICAL HISTORY: obstructive jaundice TECHNIQUE: Multiplanar and multisequence MR images of the abdomen were obtained with MRCP sequence. Three-dimensional post-processing reconstructions were performed. FINDINGS: Liver: Heterogeneous drop in signal on opposed phase T1 images compared to in phase T1 images compatible with hepatic steatosis. Gallbladder: Distended. Bile Ducts: There is intra and extra hepatic biliary duct dilatation. The common bile duct measures up to 1.3 cm in diameter. There is no obstructing stone or mass visualized. Pancreas: Dilatation of the main pancreatic duct measuring up to 1 cm in diameter. Spleen: Unremarkable Adrenal Glands: Unremarkable Kidneys: Unremarkable GI Tract: Unremarkable Lymphadenopathy: Absent Ascites: Absent Bones: No suspicious lesions MRI/MRCP Abdomen without Contrast IMPRESSION: Intra and extra hepatic biliary ductal dilatation as well as main pancreatic duct dilatation with no obstructing stone or mass seen. 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 Recommend ERCP. Electronically Signed: Delbert Reynoso MD at 19:41 EST ,
[2023-05-08] MEDS: 0.9% Normal Saline (1000mL) 1,000 ML 100 ML IV (15:38)
--- NOTE | 2023-05-08 23:10 | RAD_ITS ---
STUDY: RETROGRAD ERCP REASON FOR EXAM: Male, 82 years old. Flank pain FLUOROSCOPY TIME (if supplied): 448.9 seconds 20 images were obtained TECHNIQUE: Intraoperative fluoroscopy. 20 intraoperative views. COMPARISON: None. FINDINGS: There is opacification of the common bile duct. Stents were placed in the pancreatic duct and the common bile duct. RAD/ERCP Biliary/Pancreas IMPRESSION: Stents were placed in the pancreatic duct and the common bile duct. Electronically Signed: Maureen Reynolds MD at 8:27 EST ,
[2023-05-09] VITALS (14 sets, daily range): BP systolic 100–159; BP diastolic 64–78; PULSE 53–95; RESP 15–18; TEMP 36.2–37.2; O2SAT 86–99
[2023-05-09] MEDS: Lactated Ringers 1,000 ML 15 ML IV (00:05)
--- NOTE | 2023-05-09 00:35 | OP.CCLET_ITS ---
05/09/2023 Cameron Woods [address] [place] [address] Re : ERCP procedure for Heladio Daniel Dear Dr. Woods This procedure was performed on Monday, May 08, 2023. My impressions and recommendations are as follows: Impressions : - A biliary tract obstruction secondary to what appeared to be a mass was found in the lower third of the main duct. - A pancreatic obstruction was found in the head of the pancreas. - A biliary sphincterotomy was performed. - The biliary tree was swept and clots, debris and sludge were found. - Common bile duct was successfully dilated. - One temporary stent was placed into the ventral pancreatic duct. - One covered metal stent was placed into the common bile duct. Recommendations : My findings are described in the full procedure note, which is enclosed. If I can be of further assistance, please feel free to contact me at . Sincerely, Brooks Lee, 05/09/2023 12:33:58 AM This report has been signed electronically.
--- NOTE | 2023-05-09 00:35 | OP.ERCP_ITS ---
Patient Name: Heladio Daniel Procedure Date: 05/08/2023 10:40 PM Date of : 1940 Age: 82 Procedure: ERCP Indications: Jaundice, Elevated liver enzymes, Malignant tumor of the head of pancreas Providers: Brooks Lee DO Medicines: Monitored Anesthesia Care Patient Profile: This is an 82 year old male. Refer to note in patient chart for documentation of history and physical. Patient has symptoms of acute jaundice. Complications: No immediate complications. Procedure: Pre-Anesthesia Assessment: - Prior to the procedure, a History and Physical was performed, and patient medications and allergies were reviewed. The patient is competent. The risks and benefits of the procedure and the sedation options and risks were discussed with the patient. All questions were answered and informed consent was obtained. Patient identification and proposed procedure were verified by the physician in the pre-procedure area. Mental Status Examination: alert and oriented. Airway Examination: normal oropharyngeal airway and neck mobility. Respiratory Examination: clear to auscultation. CV Examination: normal. Prophylactic Antibiotics: The patient does not require prophylactic antibiotics. Prior Anticoagulants: The patient has taken no anticoagulant or antiplatelet agents. ASA Grade Assessment: IV - A patient with severe systemic disease that is a constant threat to life. After reviewing the risks and benefits, the patient was deemed in satisfactory condition to undergo the procedure. The anesthesia plan was to use monitored anesthesia care (MAC). Immediately prior to administration of medications, the patient was re-assessed for adequacy to receive sedatives. The heart rate, respiratory rate, oxygen saturations, blood pressure, adequacy of pulmonary ventilation, and response to care were monitored throughout the procedure. The physical status of the patient was re-assessed after the procedure. After obtaining informed consent, the scope was passed under direct vision. Throughout the procedure, the patient's blood pressure, pulse, and oxygen saturations were monitored continuously. The Duodenoscope was introduced through the mouth, and advanced to the duodenum and used to inject contrast into the bile duct and ventral pancreatic duct. The ERCP was accomplished without difficulty. The patient tolerated the procedure well. Scope In: 11:14:56 PM Scope Out: 12:18:01 AM Total Procedure Duration Time 1 hour 3 minutes 5 seconds Findings: The time study statistician film was normal. The esophagus was successfully intubated under direct vision. The scope was advanced to a normal major papilla in the descending duodenum without detailed examination of the pharynx, larynx and associated structures, and upper GI tract. The upper GI tract was grossly normal. A 0.035 inch x 260 cm angled Hydra Jagwire was passed into the dorsal pancreatic duct. The dorsal pancreatic duct was then deeply cannulated. I personally interpreted the bile duct and pancreatic duct images. There was brisk flow of contrast through the ducts. Image quality was suboptimal. Contrast extended to the main bile duct. The ventral pancreatic duct in the head of the pancreas was partially obstructed by a narrowing that did not appear to be a stone or a mass. The bile duct was deeply cannulated with the short-nosed traction sphincterotome. Contrast was injected. Opacification of the main bile duct was successful. The maximum diameter of the ducts was 15 mm. The lower third of the main bile duct was completely obstructed by what appeared to be a mass. There also appear to be some extravasation of contrast. A straight Roadrunner wire was passed into the biliary tree. A 5 mm biliary sphincterotomy was made with a traction (standard) sphincterotome using ERBE electrocautery. There was no post-sphincterotomy bleeding. The biliary tree was swept with a 12 mm balloon starting at the bifurcation. Clots were swept from the duct. Debris was swept from the duct. Sludge was swept from the duct. Dilation of the common bile duct with a 6-7-8 mm balloon (to a maximum balloon size of 6 mm) dilator was successful. One 5 Fr by 7 cm temporary stent was placed 5 cm into the ventral pancreatic duct. Clear fluid flowed through the stent. The stent was in good position. One 10 mm by 6 cm covered metal stent was placed 5 cm into the common bile duct. Bile and necrotic tissue flowed through the stent. The stent was in good position. Impression: - A biliary tract obstruction secondary to what appeared to be a mass was found in the lower third of the main duct. - A pancreatic obstruction was found in the head of the pancreas. - A biliary sphincterotomy was performed. - The biliary tree was swept and clots, debris and sludge were found. - Common bile duct was successfully dilated. - One temporary stent was placed into the ventral pancreatic duct. - One covered metal stent was placed into the common bile duct. Procedure Code(s): --- Professional --- 24431, Endoscopic retrograde cholangiopancreatography (ERCP); with placement of endoscopic stent into biliary or pancreatic duct, including pre- and post-dilation and guide wire passage, when performed, including sphincterotomy, when performed, each stent 00123, 59, Endoscopic retrograde cholangiopancreatography (ERCP); with placement of endoscopic stent into biliary or pancreatic duct, including pre- and post-dilation and guide wire passage, when performed, including sphincterotomy, when performed, each stent 70790, Endoscopic retrograde cholangiopancreatography (ERCP); with removal of calculi/debris from biliary/pancreatic duct(s) 49752, 26, Combined endoscopic catheterization of the biliary and pancreatic ductal systems, radiological supervision and interpretation CPT copyright 2021 [employer]. All rights reserved. The codes documented in this report are preliminary and upon corporate securities research analyst review may be revised to meet current compliance requirements. Brooks Lee DO 05/09/2023 12:33:58 AM This report has been signed electronically. Number of Addenda: 0 Note Initiated On: 05/08/2023 10:40 PM
--- NOTE | 2023-05-09 00:44 | EX.PCM.PN.GI ---
Subjective Subjective Patient underwent ERCP and was discovered to have a severe biliary stricture. It is believed that he possibly has a leak in his bile duct that was discovered during the ERCP when contrast was injected into his duct. Therefore a fully covered metal stent was placed and I will be started him on Zosyn. He will be n.p.o. except for ice chips. If he remains clinically stable then we will watch him here for the time being. If he develops any abdominal pain or abdominal distention he will have to be transferred to high-level care. Repeat imaging in the morning. Objective Data Objective Data Vital Signs: Vital Signs Temp Pulse Resp BP Pulse Ox O2 Del Method 98.4 F 92 18 136/78 H 99 Room Air 05/09/23 00:05/09/23 00:05/09/23 00:05/09/23 00:05/09/23 00:05/09/23 00:29 Oxygen Delivery Method Room Air Weight: 169 lb 12.095 oz Body Mass Index (BMI) 25.0 Intake & Output: Intake and Output for Last 24 Hours 05/07/23 05/08/23 05/09/23 23:59 23:59 23:59 Intake Total 136.67 / 136.67 Balance 136.67 / 136.67 Lab / Micro Data 05/08/23 09:40 05/08/23 09:40 Labs: Laboratory Results - last 24 hr 05/08/23 09:40: WBC 9.3, RBC 4.00 L, Hgb 13.0, Hct 37.9 L, MCV 94.8 H, MCH 32.5 H, MCHC 34.3, RDW Std Deviation 48.9 H, RDW Coeff of Joss 14.1, Plt Count 210, MPV 11.2, Immature Gran % (Auto) 0.600, Neut % (Auto) 71.4 H, Lymph % (Auto) 12.5 L, [place] % (Auto) 13.3 H, Eos % (Auto) 1.3, Baso % (Auto) 0.9, Absolute Neuts (auto) 6.6, Absolute Lymphs (auto) 1.16, Nucleated RBC % 0, Sodium 131 L, Potassium 4.2, Chloride 99, Carbon Dioxide 27.0, Anion Gap 5, BUN 9, Creatinine 0.87, Estim Creat Clear Calc 67.72, Est GFR (MDRD) Af Amer 109, Est GFR (MDRD) Non-Af 90, BUN/Creatinine Ratio 10.4, Glucose 98, Calcium 9.2, Total Bilirubin 17.70 H*, AST 333 H, ALT 426 H, Alkaline Phosphatase 648 H, Total Protein 7.0, Albumin 3.1 L, Globulin 3.9, Albumin/Globulin Ratio 0.8 L, Lipase 92 H Radiography Diagnostic Testing: Radiology Impression Abdomen/Pelvis CT 05/08/23 09:24 IMPRESSION: Dilated intra and extrahepatic biliary ducts as well as the pancreatic duct. I suspect the mass lesion in the head of the pancreas. Correlation with the ERCP and possible ampulla of Vater mass should be ruled out. Distended gallbladder. Sigmoid diverticulosis. Distended urinary bladder with the right-sided urinary bladder diverticulum. Electronically Signed: Lazaro Abebe MD at 11:50 EST , MRCP 05/08/23 15:00 IMPRESSION: Intra and extra hepatic biliary ductal dilatation as well as main pancreatic duct dilatation with no obstructing stone or mass seen. 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 Recommend ERCP. Electronically Signed: Delbert Reynoso MD at 19:41 EST , Physical Exam Const alert and no apparent distress Constitutional Narrative: Jaundiced. Afebrile. General Appearance: cooperative HEENT normocephalic and head/scalp atraumatic Eyes Eyes Narrative: Icterus. Glasses. Neck no lymphadenopathy Neck Narrative: No thyromegaly Resp normal respiratory effort, no retractions, no use of accessory muscles and clear to auscultation bilaterally Cardio regular rate, regular rhythm, S1 normal heart sound and S2 normal heart sound GI normal to inspection, nondistended, normoactive bowel sounds, soft to palpation, non-tender and non-distended Extremity normal to inspection Skin Skin Narrative: Marked jaundice in the head and torso. Pulm erythema. Neuro oriented x3 Neuro Narrative: No asterixis Sensorium / Orientation: awake and alert Psych affect normal Assessment & Plan Assessment/Plan (1) Pancreatic mass: (2) Painless jaundice: PLAN: Secondary to pancreatic head mass with double duct sign seen on MRCP and CT scan abdomen pelvis. CA 19-9 was sent (3) Bile leak: PLAN: Discovered during ERCP status post fully covered metal stent. Repeat imaging in a.m. n.p.o. except ice chips Charges/Coding Visit Charges Inpatient E&M: 93206 Subs Hosp L3
[2023-05-09] MEDS: 0.9% Normal Saline (1000mL) 1,000 ML 100 ML IV ×3 (01:11→20:55)
[2023-05-09] MEDS: Piperacil/Tazobactam 3.375 GM in 0.9% Normal Saline (50mL MB+) 50 ML IV ×4 (01:29→20:49)
[2023-05-09] MEDS: oxyCODONE 5 MG Tablet PO ×2 (03:03→07:50)
[2023-05-09] MEDS: Ketorolac 15 MG/ML Vial IV (05:45)
--- NOTE | 2023-05-09 07:14 | PN.HOSP_ITS ---
Reason for Visit Reason for Visit: Diagnoses Disease of biliary tract, unspecified (05/08/23) Other specified diseases of pancreas (05/08/23) Unspecified jaundice (05/08/23) Subjective Subjective complaining of epigastric tenderness. Did not have this before ERCP. Objective Data Objective Data Vital Signs: Vital Signs Temp Pulse Resp BP Pulse Ox O2 Del Method O2 Flow Rate 36.8 C 84 16 111/74 97 Room Air 2 05/09/23 05:10 05/09/23 05:10 05/09/23 05:10 05/09/23 05:10 05/09/23 05:10 05/09/23 05:10 05/09/23 03:07 Oxygen Flow Rate (L/min) 2 Oxygen Delivery Method Room Air Weight: 77 kg Body Mass Index (BMI) 25.0 Intake & Output: Intake and Output for Last 24 Hours 05/07/23 05/08/23 05/09/23 23:59 23:59 23:59 Intake Total 136.67 / 136.67 1071 / 1071 Output Total 50 / 50 Balance 136.67 / 136.67 1021 / 1021 Lab / Micro Data 05/09/23 07:11 05/09/23 07:11 Labs: Laboratory Results - last 24 hr 05/08/23 09:40: WBC 9.3, RBC 4.00 L, Hgb 13.0, Hct 37.9 L, MCV 94.8 H, MCH 32.5 H, MCHC 34.3, RDW Std Deviation 48.9 H, RDW Coeff of Joss 14.1, Plt Count 210, MPV 11.2, Immature Gran % (Auto) 0.600, Neut % (Auto) 71.4 H, Lymph % (Auto) 12.5 L, [place] % (Auto) 13.3 H, Eos % (Auto) 1.3, Baso % (Auto) 0.9, Absolute Neuts (auto) 6.6, Absolute Lymphs (auto) 1.16, Nucleated RBC % 0, Sodium 131 L, Potassium 4.2, Chloride 99, Carbon Dioxide 27.0, Anion Gap 5, BUN 9, Creatinine 0.87, Estim Creat Clear Calc 67.72, Est GFR (MDRD) Af Amer 109, Est GFR (MDRD) Non-Af 90, BUN/Creatinine Ratio 10.4, Glucose 98, Calcium 9.2, Total Bilirubin 17.70 H*, AST 333 H, ALT 426 H, Alkaline Phosphatase 648 H, Total Protein 7.0, Albumin 3.1 L, Globulin 3.9, Albumin/Globulin Ratio 0.8 L, Lipase 92 H Radiography Diagnostic Testing: Radiology Impression Abdomen/Pelvis CT 05/08/23 09:24 IMPRESSION: Dilated intra and extrahepatic biliary ducts as well as the pancreatic duct. I suspect the mass lesion in the head of the pancreas. Correlation with the ERCP and possible ampulla of Vater mass should be ruled out. Distended gallbladder. Sigmoid diverticulosis. Distended urinary bladder with the right-sided urinary bladder diverticulum. Electronically Signed: Lazaro Abebe MD at 11:50 EST , MRCP 05/08/23 15:00 IMPRESSION: Intra and extra hepatic biliary ductal dilatation as well as main pancreatic duct dilatation with no obstructing stone or mass seen. 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 Recommend ERCP. Electronically Signed: Delbert Reynoso MD at 19:41 EST , Physical Exam Const alert and no apparent distress Constitutional Narrative: uncomfortable. non-toxic. HEENT head/scalp atraumatic and moist oral mucous membranes Eyes Eyes Narrative: icterus. glasses. Resp normal respiratory effort, no retractions, no use of accessory muscles and clear to auscultation bilaterally Cardio regular rate, regular rhythm, S1 normal heart sound and S2 normal heart sound GI normal to inspection, nondistended, normoactive bowel sounds Extremity normal to inspection Skin Skin Narrative: jaundice. Neuro Neuro Narrative: no asterixis Sensorium / Orientation: awake and alert Assessment & Plan Assessment/Plan (1) Painless jaundice: (2) Pancreatic mass: PLAN: Plan Obstructive jaundice * ERCP performed on May 08 pancreatic obstruction found in the head of the pancreas. Biliary sphincterotomy performed. Temporary stent placed in the ventral pancreatic head. 1 covered metal stent placed in the common bile duct. * Concern for biliary leak during the ERCP. Patient was started on pip-tazo. Plan is to monitor conservatively for now but if decompensates, will require transfer to tertiary facility. * N.p.o. * MRCP did not see mass nor obstructing stone. Possible biliary leak * post ERCP * Patient with epigastric and right upper quadrant pain. Concern that this could be a leak or do possibly due to the stents themselves. * Check a CT. * Discussed with the patient. Told him if he the patient does require surgery that he would require transfer to a tertiary facility. I did tell the patient that if he wishes to proceed we can look to try to transfer him than waiting for things to potentially get worse. He would like to speak with his and will let us know. 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 * Concerning with the obstructive jaundice for malignancy * check an MRCP * Check a CA 19-9 and CEA * Cannot rule out need for biopsy Chronic conditions * COPD: Stable * Hyperlipidemia: Hold statin given the elevated transaminases * Hypertension: Stable. Continue with amlodipine. VTE prophylaxis moderate risk. SCDs. Holding off on chemical prophylaxis given the scheduled procedures and potential need for biopsy at this time. CODE STATUS: Addressed with the patient. Patient was to be full code. Charges/Coding Visit Charges Inpatient E&M: 68479 Subs Hosp L3
[2023-05-09] MEDS: Tolterodine Tartrate 2 MG CAP.SA PO (07:30)
[2023-05-09 07:46] LABS: Absolute Lymphocyte Count 0.99 X10^3/uL (0.83-4.51); Absolute Neutrophil Count 4.4 X10^3/uL (2.0-7.7); Basophil# 0.02 X10^3/uL; Basophil% 0.3 % (0-1); Hematocrit 39.4 % (40-54); Hemoglobin 13.4 g/dL (13.0-16.5); Lymphocyte # 0.99 X10^3/ul (0.83-4.51); Lymphocyte % 17.2 % (19-41); Mean Corpuscular Hgb 32.3 pg (27.0-32.0); Mean Corpuscular Volume 94.9 fL (80-94); Mean Platelet Vol. 11.6 fl (6.2-12.0); Monocyte# 0.29 X10^3/uL; NRBC Flagged by Analyzer 0 % (0-5); Neutrophil # 4.43 X10^3/uL (2.7-7.7); Platelet Count 226 K/mm3 (150-450); RBC Distribution Width CV 14.6 % (11.6-14.6); RBC Distribution Width SD 51.3 fl (35.1-43.9); Red Blood Count 4.15 M/mm3 (4.6-6.2); White Blood Count 5.8 K/mm3 (4.4-11.0)
[2023-05-09 08:07] LABS: ALB/GLOB Ratio 0.8 RATIO (0.9-2.4); AST(SGOT) 237 U/L (15-37); Alanine Aminotransfer ALT/SGPT 362 U/L (16-61); Albumin, Serum 2.9 g/dL (3.2-5.0); Alkaline Phosphatase 699 U/L (45-117); Anion Gap 6 (5-15); BUN 12 mg/dL (7-18); BUN/Creat Ratio 13.5 RATIO (10-20); Calcium,Total 9.3 mg/dL (8.5-10.1); Chloride 103 mmol/L (98-107); Creatinine, Serum 0.89 mg/dL (0.70-1.30); EST Glomerular Filtration Rate 87 mL/min (>60); Est Glom Filt Rate - Afr Amer 105 mL/min (>60); Globulin 3.8 g/dL (2.2-4.2); Glucose 100 mg/dL (74-106); International Normalized Ratio 1.1; Potassium 4.2 mmol/L (3.5-5.1); Protein, Total 6.7 g/dL (6.4-8.2); Prothrombin Time (Protime)PT. 13.9 SECONDS (11.7-14.9); Sodium Level 132 mmol/L (136-145)
--- NOTE | 2023-05-09 08:45 | CT_ITS ---
STUDY: CT ABDOMEN AND PELVIS WITH CONTRAST REASON FOR EXAM: Male, 82 years old. abdominal pain post ERCP -- concern for biliary leak. RADIATION DOSAGE (If Supplied By Facility): CTDIvol = ( 12.55 ) mGy, DLP = ( 615.99 ) mGycm TECHNIQUE: Transaxial images were obtained from the dome of the diaphragm to the symphysis pubis with oral contrast. Oral and amp; IV Gastrografin and amp; 100mL Isovue-370 was administered. Sagittal and coronal images were reconstructed. Individualized dose optimization techniques were used for this CT. COMPARISON: Yesterday FINDINGS: Chronic interstitial changes noted in both lung bases, right greater than left with free flowing right pleural effusion and bibasilar atelectasis. The visualized portions of the heart are within normal limits. There is pneumoperitoneum now present which was not seen on the previous study and is concerning for a perforation. Liver is unchanged in appearance from the previous study with fatty infiltration and extensive intrahepatic biliary dilatation. No suspicious low density lesion is noted. Gallbladder remains distended without wall thickening. Additionally, there is now evidence of air within the gallbladder and there is some induration of the pericholecystic fat. The air is likely present from the placement of a stent into the common bile duct and into the head of the pancreas.. Normal spleen. The head of the pancreas remains heterogeneous and there is concern about the possibility of a pancreatic mass. Normal bilateral adrenal glands. Normal right kidney. Normal left kidney. Normal visualized stomach. Normal small intestine. Retained stool with scattered colonic diverticula but no CT evidence of acute diverticulitis. There is non-visualization of the appendix. There is diffuse atherosclerotic calcification of the abdominal aorta with elongation and tortuosity, and with a stable 3.7 cm peripherally calcified aneurysm.. Normal inferior vena cava. Normal retroperitoneum. Bladder distends normally with persistent evidence of a right diverticulum. Prostate is mildly enlarged and contains punctate calcifications. Normal abdominal wall. There are diffuse degenerative changes of the visualized lumbar spine, and pelvis. CT/Abdomen/Pelvis WITH Contrast IMPRESSION: Pneumoperitoneum is now present when compared to yesterday''s study, this is concerning for a perforation. Findings called to patient''s nurse prior to dictation Persistent significant intra and extrahepatic biliary dilatation despite the presence of a biliary stent. Using noted dilated pancreatic duct has resolved after placement of a pancreatic duct stent. Persistent heterogeneity in the head of the pancreas, underlying lesion cannot be excluded. Persistently distended gallbladder without wall thickening or gallstones. There is induration of the pericholecystic fat. Scattered colonic diverticula Stable infrarenal abdominal aortic aneurysm at 3.7 cm. Degenerative bony changes Stable bladder diverticulum N.B. : The above Results were Read Back by Kin Arroyo MD to Gemma Woods RN, and understanding confirmed on 05/09/2023 15:54:35 (ET). Electronically Signed: Kin Arroyo MD at 15:59 EST ,
--- NOTE | 2023-05-09 09:45 | CASEMGMT ---
KARLA ANTHONY Assessment: Face to Face with pt for initial transition planning/care coordination assessment. RN RAJ introduced self and role at [facility], pt voices understanding and consents to assessment. Pt is A&O x4 and answers all questions appropriately at this time. Pt lying in bed reports he is painful. Updated pt nurse of pain. Care providers, pharmacy, and demographics verified/updated. Admitting Dx: obstructive jaundice PCP:Chuck Specialists:Denies Preferred Pharmacy:[facility] [place] Insurance: [facility] Prescription Benefit: yes LNOK: Sunitha Daniel, Living Arrangements: Pt lives with in a two story home with 2 steps to enter. Pt reports he is I in ADL's and denies concerns at home. Transportation: Pt drives self and denies concerns with transportation. Pt is also able to transport pt. DME:BP cuff, pox HHC/SNF: Denies hx of Pt states no concerns with going home at time of dc. Pt states I do not actually anticipate going home . RN RAJ asked pt where he anticipates going and pt pointed up and down. Pt states no further concerns/needs. CM to follow. Advised pt to ask CM if any further question/concerns/needs arise, voices understanding. Pt Goal: Home Plan: Home pending course of hospitalization Imtiaz ACOSTA CM
[2023-05-09] MEDS: HYDROmorphone Inj 0.2 MG/ML SYRINGE 0.200000000000000011 MG IV ×2 (10:33→20:49)
[2023-05-09] MEDS: 0.9% Saline Lock 10 ML Syringe IV (10:34)
--- NOTE | 2023-05-09 11:07 | NURSING ---
off unit via bed for procedure
--- NOTE | 2023-05-09 16:44 | PCM.HOSP.N ---
Hospitalist Note Pneumoperitoneum noted on CAT scan. Discussed with Dr. Wilson, when he was doing the ERCP, he noted with insufflation that air was going outside the bile ducts and places stents. Feels that there is likely fistula. Suspect patient does have external mass such as cholangiocarcinoma or pancreatic cancer. He is recommending transfer. Discussed with the patient and updated him. I reached out to [facility] and wait hear back about acceptance.
--- NOTE | 2023-05-09 18:38 | NURSING ---
received call from [facility] - pt has a bed. Bed H5124, unit: surgical, Dr. Fulton accepting physician; RN-RN report number [phone]
--- NOTE | 2023-05-09 19:30 | NURSING ---
update to [facility] info - pt is now going to Surgical ICU room T2-210; Dr. Patrick; RN-RN [phone]
--- NOTE | 2023-05-09 19:33 | NURSING ---
REPORT CALLED TO YULISSA. AWARE CURRENT P/U TIME IS 2200 BUT WE ARE TRYING TO HAVE THAT TIME MOVED UP D/T GOING TO ICU SURGICAL UNIT.
--- NOTE | 2023-05-09 20:00 | DS.PCM_ITS ---
Providers Date of Admission: 05/08/23 Primary Care Physician: Dr. Cameron Woods MD Consultations 05/08/23 15:00 Consult: Gastroenterology Routine Consulting Provider: [facility] Reason for Consult: obstruction EMERGENT Consult: No MD Notified: Yes Date Notified: 05/08/23 Time Notified: 12:58 Method of Notification: Text Reason For Visit: OBSTRUCTIVE JAUNDICE Diagnosis Discharge Diagnosis (1) Painless jaundice: Status: Acute Code(s): R17 - Unspecified jaundice (2) Pancreatic mass: Status: Acute Code(s): K86.89 - Other specified diseases of pancreas Plan Obstructive jaundice * ERCP performed on May 08 pancreatic obstruction found in the head of the pancreas. Biliary sphincterotomy performed. Temporary stent placed in the ventral pancreatic head. 1 covered metal stent placed in the common bile duct. * Concern for biliary leak during the ERCP. Patient was started on pip-tazo. Plan is to monitor conservatively for now but if decompensates, will require transfer to tertiary facility. * N.p.o. * MRCP did not see mass nor obstructing stone. Possible biliary leak * post ERCP * Patient with epigastric and right upper quadrant pain. Concern that this could be a leak or do possibly due to the stents themselves. * Check a CT. * Discussed with the patient. Told him if he the patient does require surgery that he would require transfer to a tertiary facility. I did tell the patient that if he wishes to proceed we can look to try to transfer him than waiting for things to potentially get worse. He would like to speak with his and will let us know. 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 * Concerning with the obstructive jaundice for malignancy * check an MRCP * Check a CA 19-9 and CEA * Cannot rule out need for biopsy Chronic conditions * COPD: Stable * Hyperlipidemia: Hold statin given the elevated transaminases * Hypertension: Stable. Continue with amlodipine. VTE prophylaxis moderate risk. SCDs. Holding off on chemical prophylaxis given the scheduled procedures and potential need for biopsy at this time. CODE STATUS: Addressed with the patient. Patient was to be full code. Medications at Discharge Home Medications oxybutynin chloride 5 mg tablet,extended release 24 hr 5 mg PO DAILY 07/03/22 simvastatin 10 mg tablet 20 mg PO QODAY 07/03/22 amlodipine 2.5 mg tablet 2.5 mg PO QHS 05/08/23 Hospital Course Operations None Procedures - (ERCP) Summary of Care Provided Minutes Spent on Discharge: 75 Hospital Course: Patient mated with painless jaundice. Bilirubin was around 17.8. Patient emergently underwent an ERCP on the second. It is noted that contrast was going into the peritoneum. A bile stent was placed. Patient was has abdominal pain but remained stable, bilirubin did go up to 19. CAT scan did show pneumoperitoneum. Reached out to [facility]. After lengthy discussions with a conference call with Dr. Lee we spoke with with hospitalist, general kenneth leos was able to speak to the hepatobiliary surgeon, Dr. Polanco. Patient was excepted there and transferred on the second. Weight / BMI Weight Weight: 77 kg Body Mass Index (BMI) 25.0 ABG / Lab / Microbiology Data 05/09/23 07:11 05/09/23 07:11 Laboratory: Laboratory Results - last 24 hr 05/09/23 07:11: WBC 5.8, RBC 4.15 L, Hgb 13.4, Hct 39.4 L, MCV 94.9 H, MCH 32.3 H, MCHC 34.0, RDW Std Deviation 51.3 H, RDW Coeff of Joss 14.6, Plt Count 226, MPV 11.6, Immature Gran % (Auto) 0.500, Neut % (Auto) 77.0 H, Lymph % (Auto) 17.2 L, [place] % (Auto) 5.0, Eos % (Auto) 0.0, Baso % (Auto) 0.3, Absolute Neuts (auto) 4.4, Absolute Lymphs (auto) 0.99, Nucleated RBC % 0, PT 13.9, INR 1.1, Sodium 132 L, Potassium 4.2, Chloride 103, Carbon Dioxide 23.0, Anion Gap 6, BUN 12, Creatinine 0.89, Estim Creat Clear Calc 66.20, Est GFR (MDRD) Af Amer 105, Est GFR (MDRD) Non-Af 87, BUN/Creatinine Ratio 13.5, Glucose 100, Calcium 9.3, Total Bilirubin 19.50 H*, AST 237 H, ALT 362 H, Alkaline Phosphatase 699 H, Total Protein 6.7, Albumin 2.9 L, Globulin 3.8, Albumin/Globulin Ratio 0.8 L Radiography Diagnostic Testing: Radiology Impression Endo Retro Cholangiopancreatogram 05/08/23 23:10 IMPRESSION: Stents were placed in the pancreatic duct and the common bile duct. Electronically Signed: Maureen Reynolds MD at 8:27 EST , Abdomen/Pelvis CT 05/09/23 08:45 IMPRESSION: Pneumoperitoneum is now present when compared to yesterday''s study, this is concerning for a perforation. Findings called to patient''s nurse prior to dictation Persistent significant intra and extrahepatic biliary dilatation despite the presence of a biliary stent. Using noted dilated pancreatic duct has resolved after placement of a pancreatic duct stent. Persistent heterogeneity in the head of the pancreas, underlying lesion cannot be excluded. Persistently distended gallbladder without wall thickening or gallstones. There is induration of the pericholecystic fat. Scattered colonic diverticula Stable infrarenal abdominal aortic aneurysm at 3.7 cm. Degenerative bony changes Stable bladder diverticulum N.B. : The above Results were Read Back by Kin Arroyo MD to Gemma Woods RN, and understanding confirmed on 05/09/2023 15:54:35 (ET). Electronically Signed: Kin Arroyo MD at 15:59 EST , ADDENDUM: 05/09/23 1605 IMPRESSION: Pneumoperitoneum is now present when compared to yesterday''s study, this is concerning for a perforation. Findings called to patient''s nurse prior to dictation Persistent significant intra and extrahepatic biliary dilatation despite the presence of a biliary stent. Using noted dilated pancreatic duct has resolved after placement of a pancreatic duct stent. Persistent heterogeneity in the head of the pancreas, underlying lesion cannot be excluded. Persistently distended gallbladder without wall thickening or gallstones. There is induration of the pericholecystic fat. Scattered colonic diverticula Stable infrarenal abdominal aortic aneurysm at 3.7 cm. Degenerative bony changes Stable bladder diverticulum N.B. : The above Results were Read Back by Kin Arroyo MD to Gemma Woods RN, and understanding confirmed on 05/09/2023 15:54:35 (ET). Electronically Signed: Kin Arroyo MD at 15:59 EST , Meaningful Use Info Meaningful Use Diagnoses (Choose all that apply): None applicable Discharge Plan Admission Admit Date/Time: 05/08/23 12:54 Primary Reason for Your Visit: Obstructive jaundice Attending Provider: Cameron Bear Primary Care Provider: Cameron Woods Discharge Orders/Prescriptions Prescriptions: No Action simvastatin 10 mg tablet 20 mg PO QODAY Patient Comments: 2 (TWO) TABLET BY MOUTH EVERY OTHER DAY Rx Instructions: TAKEN EVERY OTHER DAY PER PT. oxybutynin chloride 5 mg tablet extended release 24hr 5 mg PO DAILY Patient Comments: TAKE 1 TAB DAILY IN THE MORNING FOR URINARY URGENCY SYMPTOMS amlodipine 2.5 mg tablet 2.5 mg PO QHS Patient Comments: TAKE 1 TO 2 TABLETS BY MOUTH AT BEDTIME Referrals / Follow Up: Cameron Woods MD [Primary Care Provider] - Disposition Disposition (needs filled in before D/C Order can be placed): Acute Care Hospital Charges/Coding Visit Charges Inpatient E&M: 33635 Disch Hosp >30min
[2023-05-09] MEDS: amLODIPine 2.5 MG Tablet PO (20:49)
[2023-05-10 08:08] LABS: AFP, Tumor Marker 8.3 ng/mL (0.0-8.4); Carbohydrate AG 19-9 3 U/mL (0-35); Carcinoembryonic Antigen 29.2 ng/mL (0.0-4.7)
== END 2023-05-09 21:35 | disposition short-term general hospital (02) | DRG 445 ==
LOC: ED 12:31 → MS3 12:47
PROVIDERS: Internal Medicine Gastroenterology; Emergency Provider Emergency Medicine; PCP Family Medicine
PROC: (CPT 43260; principal; 2023-05-08 17:10)
DX: K83.1 Obstruction of bile duct (principal); C25.0 Malignant neoplasm of head of pancreas; J44.9 Chronic obstructive pulmonary disease, unspecified; I10 Essential (primary) hypertension; E78.00 Pure hypercholesterolemia, unspecified; K83.8 Other specified diseases of biliary tract; Z79.899 Other long term (current) drug therapy; Z87.891 Personal history of nicotine dependence
CPT/HCPCS: 36415; 74177; 74181; 74330; 76000; 80053; 82105; 82378; 83690; 85025; 85610; 86301; 99283; J7030; J7040; J7120; Q9967; A4216; C1726; J2405

== ENCOUNTER 2023-05-12 07:38 | Outpatient (RCR) | payer SELFPAY | END 2023-06-07 23:59 | LOC: PR 07:38 | PROVIDERS: PCP Family Medicine; Visit Provider Family Medicine | DX: Z00.00 Encounter for general adult medical examination without abnormal findings (principal) ==

== ENCOUNTER 2023-05-19 16:46 | Inpatient (IN) | payer MEDICARE, SELFPAY ==
[2023-05-19 16:51] VITALS: BP 150/86; PULSE 89; RESP 16; TEMP 36.3; O2SAT 95; BMI 27.1
--- NOTE | 2023-05-19 21:06 | HP.PCM_ITS ---
HPI - General General Date of Admission: 05/19/23 Date of Service: 05/19/23 Chief Complaint: Here for rehabilitation. HPI Narrative 05/08/2023 JENNIFER VILLAGRAN, is a 82 Male who presents [facility] ED abnormal labs. Jaundice x 1 week, acholic stools, dark urine, unintentional weight loss of 2-3 pounds. T. Bili 17.7, AST 333, ALT 426, Alk phos 648. CT abdomen/pelvis showed dilated intrahepatic/extrahepatic ducts, dilated pancreatic ducts, suspect mass head pancreas, distended gallbladder. 05/08/2023 Admit to [facility]. Consult GI for ERCP for biliary obstruction. Order MRCP, CA19-9, CEA for pancreatic mass. MRCP showed occult mass at the ampulla of Vater. 05/09/2023 Dr. Lee performed ERCP showed biliary tract obstruction with mass, pancreatic obstruction head of pancreas, biliary sphincterotomy performed, biliary tree swept, ventral pancreatic duct stent placed, common bile duct stent placed. 05/09/2023 Epigastric pain after ERCP. Zosyn IV for biliary leak. May need transfer to tertiary hospital. 05/09/2023 CT A/P showed pneumoperitoneum, possibly from fistula, suspect cholangiocarcinoma, pancreatic cancer. 05/10/2023 Transfer to [facility]. 05/11/2023 Admit to [facility]. Consult IR for percutaneous transhepatic cholangiography with hopeful internal/external stent placement to seal off the perforation. Consult GI to remove previous stent that was placed, then determine if drain placement is needed or any other management for the contamination of the peritoneal cavity. Continue Zosyn IV for biliary leak. 05/13/2023 s/p IR biliary drain placement via rendezvous technique. Feeling fairly well, pain controlled, drain in place end capped. Tylenol, Robaxin, PRN dilaudid for pain. Hepatic function improving. Tbili 8.1, Dbili 3.9. CEA 35.2, CA19-[address], urine culture no growth. WBC 13.7. 05/19/2023 Dr. Polanco discussed Whipple procedure for treatment of pancreatic cancer. Patient would like to rehab first, then proceed with Whipple. 05/19/2023 No abdominal pain, tolerating regular diet, passing gas, having BM's, no nausea, no vomiting. Ambulated, but feels weak. Brushing pathology showed atypical cells, but does NOT rule out pancreatic cancer. Dr. Polanco states he has pancreatic cancer until proven otherwise. PT/OT SNF. 05/19/2023 Admit to TCU with debility, here for rehabilitation, strengthening, prior to discharge home with . [facility] Medical History (Updated 05/19/23 @ 21:[address] Anmol Johnson MD) COPD (chronic obstructive pulmonary disease) History of COPD Hypercholesteremia Home Medications oxybutynin chloride 5 mg tablet,extended release 24 hr 5 mg PO DAILY Bladder 07/03/22 [History Last Taken Unknown] simvastatin 10 mg tablet 20 mg PO DAILY Cholesterol 07/03/22 [History Last Taken Unknown] amlodipine 2.5 mg tablet 2.5 mg PO DAILY BP 05/08/23 [History Last Taken 05/19/23] albuterol sulfate 90 mcg/actuation aerosol inhaler 2 puff inhalation Q6H PRN wheezing 05/19/23 [History Last Taken Unknown] Allergy/AdvReac Type Severity Reaction Status Date / Time No Known Allergies Allergy Verified 05/08/23 09:20 Surgical History (Updated 05/19/23 @ 21:[address] Anmol Johnson MD) History of appendectomy History of hernia surgery Social History (Updated 05/19/23 @ 21:[address] Anmol Johnson MD) household members: spouse Smoking Status: Former smoker how long ago did patient quit smokin years ago alcohol intake: current alcohol intake frequency: 3 or more drinks per day substance use type: does not use ROS Constitutional Constitutional: Denies chills, fever(s) or weight gain ENT HEENT: Denies headache(s), nasal congestion or nasal discharge Cardiovascular Cardiovascular: Denies chest pain or palpitations Respiratory/Chest Respiratory/Chest: Denies cough, excessive phlegm production or shortness of breath with exertion Gastrointestinal Gastrointestinal: Denies abdominal pain, nausea or vomiting Genitourinary Genitourinary: Denies dysuria Musculoskeletal Musculoskeletal: Denies joint pain or joint swelling Integumentary Integumentary: Denies rash or wounds Neurologic Neurologic: Denies focal weakness, numbness or tingling Psychiatric Psychiatric: Denies anxiety, auditory hallucinations, depression, homicidal ideation or suicidal ideation Vital Signs Vital Signs Vital Signs: 05/19/23 16:51 05/19/23 16:51 Temperature 97.4 F L Temperature Source Oral Pulse Rate 89 89 Pulse Rhythm Regular Pulse Strength Normal (2+) Respiratory Rate 16 Respiratory Effort Normal Non-Labored Respiratory Depth Normal Respiratory Pattern Normal Blood Pressure 150/86 H Blood Pressure Mean 107 Blood Pressure Source Monitor Blood Pressure Position Semi-Fowlers Blood Pressure Location Left Arm Pulse Ox 95 Oxygen Delivery Method Room Air Room Air Weight Weight: 83.007 kg Body Mass Index (BMI) 27.1 Physical Exam Const alert General Appearance: cooperative HEENT normocephalic Eyes PERRL and EOMs intact bilaterally Neck supple, no JVD and no carotid bruits Resp normal respiratory effort, normal air movement and clear to auscultation bilaterally Cardio regular rate and regular rhythm GI normal to inspection, nondistended, normoactive bowel sounds, non-tender and non-distended GI Narrative: RUQ drain end capped. Extremity normal capillary refill General Extremity: Negative for edema Skin no rashes or lesions noted Skin Narrative: Mild jaundice. General Skin Exam: no breakdown Psych affect normal Appearance: appropriate Assessment & Plan Assessment/Plan (1) Debility: (2) Painless jaundice: (3) Pancreatic mass: (4) Bile leak: (5) Pneumoperitoneum: (6) COPD (chronic obstructive pulmonary disease): (7) Essential (primary) hypertension: (8) Hyperlipidemia: (9) Overactive bladder: PLAN: Plan 82 year old male with pneumoperitoneum after ERCP with sphincterotomy and CBD/pancreatic stents for obstructive jaundice from pancreatic head mass s/p percutaneous transhepatic cholangiogram 05/10/2023, now s/p replaced stent 05/11/2023, admitted to TCU with debility, here for rehabilitation, strengthening, prior to discharge home with . * Debility - PT/OT. * Pain - monitor. * Bowel - Senokot 1 tablet bid. * Adult immunization - Administer pneumonia vaccine, covid vaccine, flu vaccine as appropriate. * DVT prophylaxis - monitor. * COPD - Albuterol 2 puffs q6 prn. * Hypertension - Amlodipine 2.5mg daily. * Hyperlipidemia - Atorvastatin 10mg qhs. * Nutrition - Ensure Plus 120ml tidcm. * Skin irritation - Calmoseptine topical bid. * Overactive bladder - Tolterodine 2mg daily.
[2023-05-19] MEDS: Senna Tablet 1 TABLET PO (21:19)
[2023-05-19] MEDS: Atorvastatin Calcium 10 MG Tablet PO (21:19)
[2023-05-19] MEDS: Menthol/Lanolin/Calamine/Znox 113 GM Tube 1 APPLIC TOPICAL (21:21)
[2023-05-20 06:21] LABS: Anion Gap 4 (5-15); BUN 8 mg/dL (7-18); BUN/Creat Ratio 16.9 RATIO (10-20); Calcium,Total 8.1 mg/dL (8.5-10.1); Chloride 102 mmol/L (98-107); Creatinine, Serum 0.47 mg/dL (0.70-1.30); EST Glomerular Filtration Rate 181 mL/min (>60); Est Glom Filt Rate - Afr Amer 219 mL/min (>60); Estimated Creatinine Clearance 77.34 ml/min; Glucose 115 mg/dL (74-106); Potassium 3.8 mmol/L (3.5-5.1); Sodium Level 134 mmol/L (136-145)
[2023-05-20 06:55] LABS: Absolute Lymphocyte Count 1.19 X10^3/uL (0.83-4.51); Absolute Neutrophil Count 12.1 X10^3/uL (2.0-7.7); Basophil# 0.09 X10^3/uL; Basophil% 0.6 % (0-1); Eosinophil# 0.29 X10^3/uL; Eosinophils% 1.9 % (0-5); Hematocrit 31.1 % (40-54); Hemoglobin 10.6 g/dL (13.0-16.5); Lymphocyte # 1.19 X10^3/ul (0.83-4.51); Mean Corp Hgb Conc 34.1 g/dL (32-36); Mean Corpuscular Hgb 33.7 pg (27.0-32.0); Mean Corpuscular Volume 98.7 fL (80-94); Mean Platelet Vol. 10.6 fl (6.2-12.0); Monocyte# 1.15 X10^3/uL; Monocyte% 7.7 % (0-10); NRBC Flagged by Analyzer 0 % (0-5); Neutrophil # 12.05 X10^3/uL (2.7-7.7); Neutrophil % 80.9 % (47-70); Platelet Count 272 K/mm3 (150-450); RBC Distribution Width CV 14.9 % (11.6-14.6); RBC Distribution Width SD 54.3 fl (35.1-43.9); Red Blood Count 3.15 M/mm3 (4.6-6.2); White Blood Count 14.9 K/mm3 (4.4-11.0)
[2023-05-20 07:16] VITALS: BMI 25.6
--- NOTE | 2023-05-20 08:34 | NURSING ---
Spoke with patient about follow-up with surgical oncologist Dr. Polanco. He reports doctor wanting to do virtual visit. RN called and spoke with Lisa at office, set up virtual appt for ThursdayMay 24 @1100. Patient updated, says that date/time is fine. Office will call his cell phone for visit.
[2023-05-20] MEDS: Ensure Plus High Protein 120 ML LIQUID PO ×2 (08:41→11:53)
[2023-05-20 08:43] VITALS: BP 136/81; PULSE 86; RESP 14; TEMP 36.4; O2SAT 95
[2023-05-20] MEDS: Senna Tablet 1 TABLET PO ×2 (08:47→21:23)
[2023-05-20] MEDS: amLODIPine 2.5 MG Tablet PO (08:47)
[2023-05-20] MEDS: Tolterodine Tartrate 2 MG CAP.SA PO (08:47)
[2023-05-20] MEDS: Tuberculin,Purif.prot.deriv. 50 TU/ML Vial 0.1 ML ID (08:52)
[2023-05-20] MEDS: Menthol/Lanolin/Calamine/Znox 113 GM Tube 1 APPLIC TOPICAL ×2 (08:56→21:24)
[2023-05-20 09:02] VITALS: BP 136/81; PULSE 86
--- NOTE | 2023-05-20 09:58 | PHA.CONS_ITS ---
Documented by User: Laura Orozco 05/20/23 10:10 TCU RX Drug Regimen Review Subjective/Objective Subjective/Objective: Subjective: TCU Admission. 82 YOM presented to the ER with abnormal labs. Hospitalized with pneumoperitoneum after ERCP with sphincterotomy and CBD/pancr eatic stents for obstructive jaundice from pancreatic head mass s/p percutaneous transhepatic cholangiogram 05/10/2023, now s/p replaced stent 05/11/2023. Admitted to TCU with debility for strengthening and rehabilitation. Objective: Allergies No Known Allergies Allergy (Verified 05/08/23 09:20) Current Medications Generic Name Dose Route Start Last Admin Trade Name Freq PRN Reason Stop Dose Admin Albuterol Sulfate 2 puff 05/19/23 17:21 Albuterol Ih (6.7 Gm) 1 Puff Inhaler INHALATION Q6H PRN wheezing Amlodipine Besylate 2.5 mg 05/20/23 10:00 05/20/23 08:47 Amlodipine 2.5 Mg Tablet PO 2.5 mg DAILY JOON Administration Protocol Atorvastatin Calcium 10 mg 05/19/23 22:00 05/19/23 21:19 Atorvastatin Calcium 10 Mg Tablet PO 10 mg QHS JOON Administration Calamine/Phenol 1 applic 05/19/23 22:00 05/20/23 08:56 Menthol/Lanolin/Calamine/Znox 113 Gm Tube TOPICAL 1 applic BID JOON Administration Protocol Nutritional Formula (Lactose Free) 120 ml 05/20/23 07:45 05/20/23 08:41 Ensure Plus High Protein 120 Ml Liquid PO 120 ml TIDCM JOON Administration Senna 1 tablet 05/19/23 22:00 05/20/23 08:47 Senna Tablet PO 1 tablet BID JOON Administration Sodium Chloride 10 - 40 ml 05/19/23 17:34 0.9% Saline Lock 10 Ml Syringe IV UD PRN SALINE FLUSH Tolterodine Tartrate 2 mg 05/20/23 10:00 05/20/23 08:47 Tolterodine Tartrate 2 Mg Cap.Sa PO 2 mg DAILY JOON Administration Tuberculin PPD 0.1 ml 05/27/23 10:00 Tuberculin,Purif.Prot.Deriv. 50 Tu/Ml Vial ID 05/27/23 10:01 X1 ONE Tuberculin PPD 0.1 ml 05/20/23 10:00 05/20/23 08:52 Tuberculin,Purif.Prot.Deriv. 50 Tu/Ml Vial ID 05/20/23 10:01 0.1 ml X1 ONE Administration Problem List (Updated 05/19/23 @ 21:[address] Anmol Johnson MD) Overactive bladder (Acute) Hyperlipidemia (Acute) Essential (primary) hypertension (Acute) COPD (chronic obstructive pulmonary disease) (Chronic) Pneumoperitoneum (Acute) Debility (Acute) Bile leak (Acute) Pancreatic mass (Acute) Painless jaundice (Acute) Vital Signs Temp Pulse Resp BP Pulse Ox O2 Del Method 97.6 F L 86 14 136/81 H 95 Room Air 05/20/23 08:43 05/20/23 09:02 05/20/23 08:43 05/20/23 09:02 05/20/23 08:43 05/20/23 08:43 Oxygen Delivery Method Room Air Weight: 78.471 kg Body Mass Index (BMI) 25.6 Sodium 134 mmol/L (136-145) L 05/20/23 05:29 Potassium 3.8 mmol/L (3.5-5.1) 05/20/23 05:29 Chloride 102 mmol/L (98-107) 05/20/23 05:29 Carbon Dioxide 28.0 mmol/L (21.0-32.0) 05/20/23 05:29 Anion Gap 4 (5-15) L 05/20/23 05:29 BUN 8 mg/dL (7-18) 05/20/23 05:29 Creatinine 0.47 mg/dL (0.70-1.30) L 05/20/23 05:29 Est GFR (MDRD) Af Amer 219 mL/min (>60) 05/20/23 05:29 Est GFR (MDRD) Non-Af 181 mL/min (>60) 05/20/23 05:29 BUN/Creatinine Ratio 16.9 RATIO (10-20) 05/20/23 05:29 Glucose 115 mg/dL (74-106) H 05/20/23 05:29 Assessment/Plan: 1. Bowel: senna 1T PO BID. No documented bowel movement so far. Please continue to monitor for constipation. 2. COPD: albuterol 2 puff inhalation Q6H PRN wheezing. Resident has not had any doses so far. Please continue to monitor for wheezing and PRN usage. 3. Hypertension: amlodipine 2.5mg PO daily. Please continue to monitor BP (last 136/81) and swelling. 4. Hyperlipidemia: atorvastatin 10mg PO QHS. Please consider ordering a lipid panel if clinically appropriate as the last panel is from 05/29/22. Thanks. Kati garcia continue to monitor LFTs (last 05/09/23) and muscle pain. 5. Overactive bladder: tolterodine 2mg PO daily. Please continue to monitor for dementia/delirium (BEERs medication) and dry mouth. Assessment/Plan for indications treated with psychotropic medications: None Medical chart and medication regimen reviewed. The following medication irregularities or issues were identified: 1. Atorvastatin 10mg PO QHS. Please consider ordering a lipid panel if clinically appropriate as the last panel is from 05/29/22. Thanks. Date Date of Note:: 05/20/23 Documented by User: Dr. Anmol Johnson MD 05/20/23 10:17 TCU RX Drug Regimen Review Provider Comments Provider responsibility Provider Comments to Recommendations by Pharmacy: Agree
--- NOTE | 2023-05-20 11:46 | NURSING ---
Station Cook Note; Activity Asset: Shakeel Leija is independent in his choice of daily activities. Kamaljit stated he is from [place] and work [place] for [employer] then they got bought out by [employer] and he moved to the [place]. He enjoys writing, reading, tv, spending time w/family and friends and will work on word puzzles from time to time. Family brought him writing pads and cards to send to his friends and family. Staff will remind him of weekly activities and respect debbie right to say no.
[2023-05-20 13:15] VITALS: PULSE 78; RESP 18; O2SAT 96
--- NOTE | 2023-05-20 13:17 | NURSING ---
PT COMPLAINING OF ABDOMINAL PAIN, BOWELS HYPER,WITH GAS. ABDOMINAL FIRM. PT ALSO STATED HE FELT SOB AT TIMES. OXYGEN 96% RA. RT LOWER POST LUNG HAS FINE CRACKLES. LOWER LEGS/FEET A LOT OF EDEMA NON PITTING. NO PAIN MEDS ON MAY. NOTE LEFT FOR . RN AWARE.
--- NOTE | 2023-05-20 17:45 | NURSING ---
NEW ORDERS FOR A KUB, CHEST X RAY, UA/CULTURE AND PRN TYLENOL. DUE TO BURNING WITH URINATION, DRY HEAVES/FIRM ABDOMINAL AND PAIN/CONSTIPATION. FINE CRACKLES IN POST RT LOWER LUNG. WILL CALL AND UPDATE HER.
--- NOTE | 2023-05-20 18:13 | RAD_ITS ---
INDICATION: SOB. EXAMINATION/TECHNIQUE: X-RAY - XR Chest 2 Views COMPARISON: CT Abdomen/PelvisMar 2023 FINDINGS: LINES/DEVICES: None. LUNGS: Small right pleural effusion with compressive atelectasis in the right lung base. There is patchy airspace opacity in the right upper lobe suggesting pneumonia. MEDIASTINUM AND CARDIOVASCULAR STRUCTURES: Cardiac silhouette not enlarged. Central airways and mediastinal contour are unremarkable. BONES AND SOFT TISSUES: Unremarkable. RAD/Chest PA and Lateral IMPRESSION: Small right pleural effusion with compressive atelectasis in the right lung base. There is patchy airspace opacity in the right upper lobe suggesting pneumonia. Electronically Signed: Maureen Reynolds MD at 0:03 EDT ,
--- NOTE | 2023-05-20 18:13 | RAD_ITS ---
INDICATION: abdominal pain. EXAMINATION/TECHNIQUE: X-RAY - XR Abdomen 1 View COMPARISON: CT Abdomen/PelvisMar 2023 FINDINGS: PTC drain and common bile duct stent are noted. Contrast residue in the gallbladder. BOWEL GAS PATTERN: Non-obstructive. No bowel or stomach distention. FREE AIR: Not assessed on a single supine view. ORGANOMEGALY: Not seen. CALCIFICATIONS: No abnormal calcifications observed. LOWER CHEST: No acute pathology. BONES AND SOFT TISSUES: Advanced degenerative changes in the lumbar spine. RAD/Abdomen Single View IMPRESSION: Non-obstructive bowel gas pattern. Electronically Signed: Maureen Reynolds MD at 23:59 EDT ,
[2023-05-20 18:57] LABS: Bacteria 0 SEEN /hpf (None Seen); Mucous, Urine 0 SEEN /hpf (<or=2+); Red Blood Cells-Urine 0 SEEN /hpf (0-5); Squamous Epithelial Cells - UA 0 SEEN /hpf (0-5); White Blood Cells 0 SEEN /hpf (0-5)
[2023-05-20 19:07] LABS: Color, Urine Yellow (Yellow); Glucose, Dipstick Normal (Normal); Ketone-Dipstick Negative (Negative); Leukocyte Esterase-Dipstick 25 /ul (Negative); Nitrite-Dipstick Negative (Negative); Occult Blood-Urine Negative /ul (Negative); Protein-Dipstick 15 mg/dl (Negative); Specific Gravity, Urine 1.015 (1.002-1.030); Urine Bilirubin Dipstick Negative (Negative); Urine Clarity Clear (Clear); Urine Urobilinogen 1 mg/dl (Normal)
[2023-05-20] MEDS: Nystatin Powder 15gm Bottle 1 APPLIC TOPICAL (21:23)
[2023-05-20] MEDS: Atorvastatin Calcium 10 MG Tablet PO (21:23)
[2023-05-21 05:36] LABS: Absolute Lymphocyte Count 1.31 X10^3/uL (0.83-4.51); Absolute Neutrophil Count 10.7 X10^3/uL (2.0-7.7); Basophil# 0.08 X10^3/uL; Basophil% 0.6 % (0-1); Eosinophil# 0.24 X10^3/uL; Eosinophils% 1.7 % (0-5); Lymphocyte # 1.31 X10^3/ul (0.83-4.51); Lymphocyte % 9.5 % (19-41); Mean Corp Hgb Conc 33.3 g/dL (32-36); Mean Corpuscular Hgb 32.6 pg (27.0-32.0); Mean Corpuscular Volume 97.9 fL (80-94); Mean Platelet Vol. 10.5 fl (6.2-12.0); Monocyte% 10.1 % (0-10); NRBC Flagged by Analyzer 0 % (0-5); Neutrophil # 10.72 X10^3/uL (2.7-7.7); Neutrophil % 77.4 % (47-70); Platelet Count 308 K/mm3 (150-450); RBC Distribution Width CV 14.9 % (11.6-14.6); RBC Distribution Width SD 53.3 fl (35.1-43.9); Red Blood Count 3.37 M/mm3 (4.6-6.2); White Blood Count 13.8 K/mm3 (4.4-11.0)
[2023-05-21 05:57] LABS: ALB/GLOB Ratio 0.6 RATIO (0.9-2.4); AST(SGOT) 50 U/L (15-37); Alanine Aminotransfer ALT/SGPT 84 U/L (16-61); Albumin, Serum 2.1 g/dL (3.2-5.0); Alkaline Phosphatase 255 U/L (45-117); Anion Gap 4 (5-15); BUN 8 mg/dL (7-18); Calcium,Total 8.3 mg/dL (8.5-10.1); Chloride 102 mmol/L (98-107); Cholesterol 128 mg/dL (200); Creatinine, Serum 0.53 mg/dL (0.70-1.30); EST Glomerular Filtration Rate 157 mL/min (>60); Est Glom Filt Rate - Afr Amer 190 mL/min (>60); Estimated Creatinine Clearance 71.25 ml/min; Globulin 3.7 g/dL (2.2-4.2); Glucose 108 mg/dL (74-106); High Density Lipoprotein 42 mg/dL; Potassium 3.9 mmol/L (3.5-5.1); Protein, Total 5.8 g/dL (6.4-8.2); Sodium Level 135 mmol/L (136-145); Triglycerides 79 mg/dL; Very Low Density Lipoprotein 16 mg/dL (5-40)
[2023-05-21] MEDS: Tolterodine Tartrate 2 MG CAP.SA PO (10:23)
[2023-05-21] MEDS: Menthol/Lanolin/Calamine/Znox 113 GM Tube 1 APPLIC TOPICAL ×2 (10:23→22:36)
[2023-05-21] MEDS: Ensure Plus High Protein 120 ML LIQUID PO ×2 (10:23→16:39)
[2023-05-21] MEDS: Nystatin Powder 15gm Bottle 1 APPLIC TOPICAL ×2 (10:24→22:36)
--- NOTE | 2023-05-21 10:24 | NURSING ---
Addendum entered by Mona Burroughs 05/21/23 13:16: Updated patient regional clinical director with physician. Addendum entered by Mona Burroughs 05/21/23 13:14: Call from Dr. Polanco, this RN updated him on details of bleeding around and into drain. He was not concerned at this time, said even if drain had been pulled at or moved some it would be fine. He said dressing can be reinforced and monitored. No new orders. He said he would discuss next steps with patient and on Thursday during virtual appt. Original Note: Asked to see patient's drain site as it started bleeding per Willard GIRON. Dressing of 4x4s and tegaderm was saturated with bright red blood and oozing out bottom of dressing. Called and spoke with Lisa at Dr. Polanco's office to update of bleeding at site. She will notify Dr. Polanco and call back with any orders. Dressing changed, new sterile dressing applied. When changed there was still bleeding at the site. Sutures intact but pulled taut. No known issues with drain being pulled at accidentally. Patient does feel his pain is worse today, says its 8/10 in RUQ when taking a deep breath. Notified by TITLE I MATH TUTOR that Dr. Polanco's office had called back and that Dr. Polanco will call at 12pm to speak with nurse. Will update physician of above on phone call.
[2023-05-21] MEDS: Senna Tablet 1 TABLET PO ×2 (10:26→22:36)
[2023-05-21] MEDS: amLODIPine 2.5 MG Tablet PO (10:26)
[2023-05-21] MEDS: Doxycycline 100 MG CAPSULE PO ×2 (10:28→22:36)
[2023-05-21] MEDS: Acetaminophen 500 MG Tablet 1000 MG PO (10:30)
[2023-05-21 10:36] VITALS: BP 142/72; PULSE 77
[2023-05-21 10:37] VITALS: RESP 18; TEMP 35.9; O2SAT 95
[2023-05-21 11:20] VITALS: PULSE 75; RESP 18; O2SAT 93
--- NOTE | 2023-05-21 11:38 | NURSING ---
Addendum entered by Humera Staples 05/23/23 15:14: Dressing to right abdomen intact, no drainage noted. dark yellow-green drainage noted to bag. Pt denies pain today. Pt continues with jaundice to skin and sclera. Continues with doxycycline for pneumonia/pleural effusion; denies dyspnea, none noted.No complaints at this time. Original Note: AT 9:30 AM AID COMES TO THIS NURSE AND STATED SHE NEEDED HELP IN ROOM DUE TO PT BLEEDING A LOT AT DRAIN SITE. THIS NURSE AND BREE HANKS TO ROOM AND FOUND PT SITTING ON BSC AND BLEEDING A LOT, DRIPPING TO FLOOR. GOT PT TO BED AND FOUND THAT PT DRAIN SITE DRESSING WAS SATURATED WITH BLOOD AND RUNNING OUT FROM AT BOTTOM OF DRESSING. ASKED PT WHAT HAPPENED PT STATED HE DIDNT KNOW. CALLED RN TO ROOM. RN OBSERVED AREA,PLACED CALL TO PT SURGEON. THIS NURSE AND BARREL CAP SETTER CONTINUED TO CLEAN UP PT AND REMOVED OLD DRESSING,OBSERVED AREA. THIS NURSE HELD PRESSURE TO SITE FOR 10 MINS TO STOP BLEEDING. ONCE STOPPED APPLIED NEW DRESSING OF A 2X2 MEPILEX,GAZE, AND CLEAR OPSITE TO AREA. RN STATED THAT THE SURGEON WILL CALL BACK TODAY TO CHECK ON PT. DRAINAGE IN BAG IS WITH LIQUID BILE AND SOME BLOOD. PT STATED HE HAD PAIN IN RT SIDE ABDOMINAL AREA, PRN TYLENOL GIVEN. WILL CONTINUE TO MONITOR PT.
[2023-05-21 16:00] VITALS: BP 130/76; PULSE 92; RESP 17; TEMP 36.4; O2SAT 95
--- NOTE | 2023-05-21 16:17 | CASEMGMT ---
Social Work Met with patient to complete initial assessment. Introduced self and role. Verified/updated contacts. Patient confirmed code status and DNR-CCA, no intubation. SW requested provide copies of advanced directives - pt agreed. Educated to [facility] insurance with NRD 05/21 and indicated continued stay is not likely. Pt expressed concern with discharging so soon. Pt explained he has been in a hospital since May 07 and laid in a hospital bed for days. Pt concerned with going home without regaining proper strength and returning to PLOF. SW expressed understanding and educated to appeal rights. Educated to coordinating skilled HHC and DME needs at DC, which pt requesting FWW and BSC, if DCs home still needing that assistance. SW will continue to follow and assist with DC planning. Nini Grimm, [employer] SE[employer] PLANT ENGINEER COURT ABSTRACTOR
[2023-05-21] MEDS: Atorvastatin Calcium 10 MG Tablet PO (22:36)
[2023-05-22] MEDS: Ensure Plus High Protein 120 ML LIQUID PO ×2 (08:21→12:53)
[2023-05-22] MEDS: amLODIPine 2.5 MG Tablet PO (08:21)
[2023-05-22] MEDS: Doxycycline 100 MG CAPSULE PO ×2 (08:21→20:57)
[2023-05-22] MEDS: Tolterodine Tartrate 2 MG CAP.SA PO (08:21)
[2023-05-22] MEDS: Nystatin Powder 15gm Bottle 1 APPLIC TOPICAL ×2 (08:21→20:59)
[2023-05-22] MEDS: Menthol/Lanolin/Calamine/Znox 113 GM Tube 1 APPLIC TOPICAL ×2 (08:21→20:59)
[2023-05-22 15:38] VITALS: BP 115/67; PULSE 79; RESP 14; TEMP 36.4; O2SAT 96
[2023-05-22] MEDS: Atorvastatin Calcium 10 MG Tablet PO (20:57)
[2023-05-22] MEDS: Senna Tablet 1 TABLET PO (20:57)
--- NOTE | 2023-05-22 21:43 | CASEMGMT ---
Social Work SW spoke with pt at bedside and via conference call to update them on insurance approval with NRD 05/26. Both appreciative. SW inquired about advanced directives. stated they do not have documents completed. SW offered to complete them during pt's stay. Pt and agreed. SW also provided social science instructor rack card to schedule after DC, if needed. SW will continue to follow. Nini Grimm, AURELIA TAYLORW
[2023-05-23] MEDS: Ensure Plus High Protein 120 ML LIQUID PO ×3 (08:20→17:34)
[2023-05-23 08:22] VITALS: BP 146/71; PULSE 78; RESP 18; O2SAT 93
[2023-05-23] MEDS: Menthol/Lanolin/Calamine/Znox 113 GM Tube 1 APPLIC TOPICAL ×2 (08:23→22:59)
[2023-05-23] MEDS: Senna Tablet 1 TABLET PO ×2 (08:24→23:00)
[2023-05-23] MEDS: Doxycycline 100 MG CAPSULE PO ×2 (08:24→23:00)
[2023-05-23] MEDS: amLODIPine 2.5 MG Tablet PO (08:25)
[2023-05-23] MEDS: Nystatin Powder 15gm Bottle 1 APPLIC TOPICAL ×2 (08:25→23:00)
[2023-05-23] MEDS: Tolterodine Tartrate 2 MG CAP.SA PO (08:25)
[2023-05-23 12:47] VITALS: TEMP 36.1
[2023-05-23] MEDS: Atorvastatin Calcium 10 MG Tablet PO (23:01)
[2023-05-24 09:09] VITALS: BP 131/73; PULSE 67; RESP 16; TEMP 36.7
[2023-05-24] MEDS: Ensure Plus High Protein 120 ML LIQUID PO ×3 (09:11→17:40)
[2023-05-24] MEDS: Menthol/Lanolin/Calamine/Znox 113 GM Tube 1 APPLIC TOPICAL ×2 (09:11→21:51)
[2023-05-24] MEDS: Senna Tablet 1 TABLET PO (09:12)
[2023-05-24] MEDS: Tolterodine Tartrate 2 MG CAP.SA PO (09:12)
[2023-05-24] MEDS: Doxycycline 100 MG CAPSULE PO ×2 (09:12→21:50)
[2023-05-24] MEDS: amLODIPine 2.5 MG Tablet PO (09:12)
[2023-05-24] MEDS: Nystatin Powder 15gm Bottle 1 APPLIC TOPICAL ×2 (09:12→21:51)
--- NOTE | 2023-05-24 13:06 | NURSING ---
HS nurse reports pt complaining of constant pain during shift. Pt denies pain this morning, reports occasional pain with rolling/twisting in bed, states pain mainly at night. RN notified Dr. Johnson, received new order for PRN Tramadol 50mg q6hrs.
[2023-05-24] MEDS: traMADol 50 MG Tablet PO (21:52)
[2023-05-24] MEDS: Atorvastatin Calcium 10 MG Tablet PO (21:54)
[2023-05-25 08:43] VITALS: BP 122/67; PULSE 68; RESP 18; TEMP 36.6; O2SAT 94
[2023-05-25] MEDS: Tolterodine Tartrate 2 MG CAP.SA PO (08:46)
[2023-05-25] MEDS: Doxycycline 100 MG CAPSULE PO ×2 (08:46→21:22)
[2023-05-25] MEDS: Nystatin Powder 15gm Bottle 1 APPLIC TOPICAL ×2 (08:46→21:23)
[2023-05-25] MEDS: amLODIPine 2.5 MG Tablet PO (08:46)
[2023-05-25] MEDS: Ensure Plus High Protein 120 ML LIQUID PO ×3 (08:46→17:02)
[2023-05-25] MEDS: Menthol/Lanolin/Calamine/Znox 113 GM Tube 1 APPLIC TOPICAL ×2 (08:48→21:23)
--- NOTE | 2023-05-25 12:32 | CASEMGMT ---
Social Work Met with patient, and dtr to answer questions. Reviewed DME needs at DC: BSC, transfer tub bench, grab [employer]. SW provided resources for [employer], [email or web address] and [employer] installation resources. SW also completed advanced directives. Original and copy provided to pt. Copies placed on chart. SW will continue to follow for DC planning. Nini Grimm, AURELIA TAYLORW
--- NOTE | 2023-05-25 14:59 | CASEMGMT ---
Social Work BIMS () and PHQ-2 () completed for MDS assessment. Nini Grimm MSW AIR AND MISSILE DEFENSE CREWMEMBER
--- NOTE | 2023-05-25 15:08 | EKG12_ITS ---
Test Reason : WEAKNESS Blood Pressure : / mmHG Vent. Rate : 066 BPM Atrial Rate : 066 BPM P-R Int : 162 ms QRS Dur : 128 ms QT Int : 412 ms P-R-T Axes : 060 141 021 degrees QTc Int : 431 ms Normal sinus rhythm Right bundle branch block Left posterior fascicular block Bifascicular block Abnormal ECG Confirmed by ALTAGRACIA MARLOW MD ([id number]), editor in chief newspaper DENZEL MICHAUD ([id number]) on 05/26/2023 10:50:01 AM Referred By: RHONDA Confirmed By:ALTAGRACIA MARLOW MD
--- NOTE | 2023-05-25 15:10 | NURSING ---
Patient had virtual visit with Dr. Polanco this morning. Per TELEX OPERATOR [facility], Dr. Polanco had mentioned wanting CT done and needing medical clearance for procedure. Updated Dr. Johnson, verbal order received for labs and EKG for Dr. Johnson to give medical clearance. Spoke with Lisa at Dr. Polanco's office, she will have him call TCU with other questions and CT scan orders.
[2023-05-25 16:45] LABS: Absolute Lymphocyte Count 1.42 X10^3/uL (0.83-4.51); Absolute Neutrophil Count 6.8 X10^3/uL (2.0-7.7); Basophil# 0.09 X10^3/uL; Basophil% 0.9 % (0-1); Eosinophil# 0.22 X10^3/uL; Eosinophils% 2.1 % (0-5); Hematocrit 33.1 % (40-54); Lymphocyte # 1.42 X10^3/ul (0.83-4.51); Lymphocyte % 13.7 % (19-41); Mean Corp Hgb Conc 33.2 g/dL (32-36); Mean Corpuscular Hgb 32.5 pg (27.0-32.0); Mean Corpuscular Volume 97.9 fL (80-94); Mean Platelet Vol. 10.5 fl (6.2-12.0); Monocyte# 1.82 X10^3/uL; Monocyte% 17.5 % (0-10); NRBC Flagged by Analyzer 0 % (0-5); Neutrophil # 6.78 X10^3/uL (2.7-7.7); Neutrophil % 65.2 % (47-70); POSITIVE DIFFERENTIAL YES; Platelet Count 338 K/mm3 (150-450); RBC Distribution Width CV 13.9 % (11.6-14.6); RBC Distribution Width SD 50.5 fl (35.1-43.9); Red Blood Count 3.38 M/mm3 (4.6-6.2); White Blood Count 10.4 K/mm3 (4.4-11.0)
[2023-05-25 16:55] LABS: International Normalized Ratio 1.2; Prothrombin Time (Protime)PT. 14.7 SECONDS (11.7-14.9)
[2023-05-25 16:56] LABS: Differential Indicated SCAN CRITERIA MET
[2023-05-25 17:01] LABS: ALB/GLOB Ratio 0.6 RATIO (0.9-2.4); AST(SGOT) 49 U/L (15-37); Alanine Aminotransfer ALT/SGPT 77 U/L (16-61); Albumin, Serum 2.3 g/dL (3.2-5.0); Alkaline Phosphatase 201 U/L (45-117); Anion Gap 3 (5-15); BUN 13 mg/dL (7-18); BUN/Creat Ratio 21.4 RATIO (10-20); Calcium,Total 8.5 mg/dL (8.5-10.1); Chloride 99 mmol/L (98-107); Creatinine, Serum 0.61 mg/dL (0.70-1.30); EST Glomerular Filtration Rate 136 mL/min (>60); Est Glom Filt Rate - Afr Amer 164 mL/min (>60); Estimated Creatinine Clearance 71.25 ml/min; Globulin 3.9 g/dL (2.2-4.2); Glucose 108 mg/dL (74-106); Potassium 4.1 mmol/L (3.5-5.1); Protein, Total 6.2 g/dL (6.4-8.2); Sodium Level 130 mmol/L (136-145)
[2023-05-25 17:44] LABS: Anisocytosis RARE; Macrocytosis RARE; Ovalocyte RARE; Platelet Estimate ADEQUATE (ADEQ); Red Cell Morphology N CHROM NORMAL (NORM C&C)
[2023-05-25] MEDS: Atorvastatin Calcium 10 MG Tablet PO (21:22)
[2023-05-25] MEDS: traMADol 50 MG Tablet PO (21:22)
[2023-05-25] MEDS: Senna Tablet 1 TABLET PO (21:22)
[2023-05-26 07:00] VITALS: BMI 23.5
[2023-05-26] MEDS: Ensure Plus High Protein 120 ML LIQUID PO ×3 (08:01→16:54)
[2023-05-26] MEDS: Menthol/Lanolin/Calamine/Znox 113 GM Tube 1 APPLIC TOPICAL ×2 (08:01→21:02)
[2023-05-26] MEDS: amLODIPine 2.5 MG Tablet PO (08:02)
[2023-05-26] MEDS: Nystatin Powder 15gm Bottle 1 APPLIC TOPICAL ×2 (08:02→21:03)
[2023-05-26] MEDS: Doxycycline 100 MG CAPSULE PO ×2 (08:02→21:02)
[2023-05-26] MEDS: Senna Tablet 1 TABLET PO ×2 (08:02→21:02)
[2023-05-26] MEDS: Tolterodine Tartrate 2 MG CAP.SA PO (08:02)
[2023-05-26 08:39] LABS: Anion Gap 4 (5-15); BUN 10 mg/dL (7-18); BUN/Creat Ratio 17.8 RATIO (10-20); Calcium,Total 8.8 mg/dL (8.5-10.1); Chloride 100 mmol/L (98-107); Creatinine, Serum 0.56 mg/dL (0.70-1.30); EST Glomerular Filtration Rate 148 mL/min (>60); Est Glom Filt Rate - Afr Amer 179 mL/min (>60); Estimated Creatinine Clearance 71.25 ml/min; Glucose 119 mg/dL (74-106); Potassium 3.8 mmol/L (3.5-5.1); Sodium Level 130 mmol/L (136-145)
--- NOTE | 2023-05-26 08:51 | EKG12_ITS ---
Test Reason : Blood Pressure : / mmHG Vent. Rate : 068 BPM Atrial Rate : 068 BPM P-R Int : 126 ms QRS Dur : 138 ms QT Int : 426 ms P-R-T Axes : 036 064 021 degrees QTc Int : 452 ms Normal sinus rhythm Right bundle branch block Abnormal ECG When compared with ECG of 25-MAY-2023 15:52, MANUAL COMPARISON REQUIRED, DATA IS UNCONFIRMED Confirmed by ELE WAHL, ALTAGRACIA ([id number]), technical editor ROLY MINAYA ([id number]) on 05/28/2023 11:07:24 AM Referred By: Anmol Johnson Confirmed By:ALTAGRACIA MARLOW MD
--- NOTE | 2023-05-26 09:27 | NURSING ---
Order for abdominal/pelvis CT w/ contrast. Case #[id number]. Auth received, #[id number]. Faxed order to CT.
[2023-05-26 09:49] LABS: Osmolality, Urine 542 mOsm/KG
[2023-05-26 09:49] LABS: Osmolality, Serum 278 mOsm/KG (280-301)
[2023-05-26 09:52] LABS: Urine Sodium 93 mmol/L (Not Establ.)
--- NOTE | 2023-05-26 09:59 | NURSING ---
Pt. c/o burning during urination and frequency. Blood noted in urine as well. Dr. Johnson notified new orders for UA and Culture.
[2023-05-26 13:07] VITALS: BP 104/65; PULSE 73; RESP 16; TEMP 36.3; O2SAT 96
[2023-05-26 13:17] LABS: Bacteria 0 SEEN /hpf (None Seen); Mucous, Urine 0 SEEN /hpf (<or=2+)
--- NOTE | 2023-05-26 14:10 | NURSING ---
Addendum entered by Mona Burroughs 05/27/23 16:05: Call again from Lisa that Dr. Polanco wants BMP, CBC, LFTs, PT/INR, type and screen, cxray, and EKG done. Asked if they wanted repeats on tests/labs that had already been done. Per her, only need ones completed that haven't recently been ordered. Need to be w/i 30 days of surgery on June 15. Addendum entered by Mona Burroughs 05/27/23 13:19: Call from Lisa, request for images from CT to be sent to . [facility] Original Note: Spoke with Lisa at Dr. Polanco's office, can fax CT results to [phone]. She says surgery will be June 16, 2023. Asked for dressing orders to plan for DC. She said Dr. Polanco will have call again with patient on Thursday and she will follow-up with nursing on Thursday about DC orders.
[2023-05-26 14:14] LABS: Color, Urine Yellow (Yellow); Glucose, Dipstick Normal (Normal); Ketone-Dipstick Negative (Negative); Leukocyte Esterase-Dipstick 25 /ul (Negative); Nitrite-Dipstick Negative (Negative); Occult Blood-Urine 250 /ul (Negative); Protein-Dipstick Negative (Negative); Urine Bilirubin Dipstick Negative (Negative); Urine Clarity Sl. Cloudy (Clear); Urine Urobilinogen Normal (Normal)
[2023-05-26 14:22] LABS: Calcium Oxalate Crystals Ur 1+ /hpf (<or=2+); Red Blood Cells-Urine 25-50 SEEN /hpf (0-5); Squamous Epithelial Cells - UA 0-5 SEEN /hpf (0-5); White Blood Cells 0-5 SEEN /hpf (0-5)
[2023-05-26] MEDS: Atorvastatin Calcium 10 MG Tablet PO (21:02)
[2023-05-27 06:05] LABS: Absolute Lymphocyte Count 1.34 X10^3/uL (0.83-4.51); Absolute Neutrophil Count 5.4 X10^3/uL (2.0-7.7); Basophil# 0.07 X10^3/uL; Basophil% 0.8 % (0-1); Eosinophil# 0.25 X10^3/uL; Eosinophils% 2.9 % (0-5); Hematocrit 30.8 % (40-54); Hemoglobin 10.6 g/dL (13.0-16.5); Lymphocyte # 1.34 X10^3/ul (0.83-4.51); Lymphocyte % 15.5 % (19-41); Mean Corp Hgb Conc 34.4 g/dL (32-36); Mean Platelet Vol. 10.4 fl (6.2-12.0); Monocyte# 1.54 X10^3/uL; Monocyte% 17.8 % (0-10); NRBC Flagged by Analyzer 0 % (0-5); Neutrophil % 62.5 % (47-70); POSITIVE DIFFERENTIAL YES; Platelet Count 312 K/mm3 (150-450); RBC Distribution Width CV 13.4 % (11.6-14.6); RBC Distribution Width SD 47.8 fl (35.1-43.9); Red Blood Count 3.21 M/mm3 (4.6-6.2); White Blood Count 8.6 K/mm3 (4.4-11.0)
[2023-05-27 06:12] LABS: Differential Indicated SCAN CRITERIA MET
[2023-05-27 06:37] LABS: Anion Gap 6 (5-15); BUN 10 mg/dL (7-18); BUN/Creat Ratio 19.3 RATIO (10-20); Calcium,Total 8.4 mg/dL (8.5-10.1); Chloride 97 mmol/L (98-107); Creatinine, Serum 0.52 mg/dL (0.70-1.30); EST Glomerular Filtration Rate 163 mL/min (>60); Est Glom Filt Rate - Afr Amer 198 mL/min (>60); Estimated Creatinine Clearance 71.25 ml/min; Glucose 101 mg/dL (74-106); Potassium 3.9 mmol/L (3.5-5.1); Sodium Level 132 mmol/L (136-145)
[2023-05-27 06:57] LABS: Differential Comment SCANNED
[2023-05-27] MEDS: Ensure Plus High Protein 120 ML LIQUID PO ×3 (08:26→17:18)
[2023-05-27] MEDS: Menthol/Lanolin/Calamine/Znox 113 GM Tube 1 APPLIC TOPICAL ×2 (08:26→20:25)
[2023-05-27] MEDS: Tolterodine Tartrate 2 MG CAP.SA PO (08:27)
[2023-05-27] MEDS: Nystatin Powder 15gm Bottle 1 APPLIC TOPICAL ×2 (08:28→20:25)
[2023-05-27] MEDS: Senna Tablet 1 TABLET PO ×2 (08:28→20:24)
[2023-05-27] MEDS: Doxycycline 100 MG CAPSULE PO ×2 (08:28→20:24)
[2023-05-27] MEDS: amLODIPine 2.5 MG Tablet PO (08:28)
[2023-05-27] MEDS: Tuberculin,Purif.prot.deriv. 50 TU/ML Vial 0.1 ML ID (08:32)
[2023-05-27] MEDS: 0.9% Saline Lock 10 ML Syringe IV (08:35)
[2023-05-27 08:38] VITALS: BP 111/63; PULSE 91
--- NOTE | 2023-05-27 08:41 | NURSING ---
Matchbook Assembler Note; MDS for 05/26/2023 Complete
--- NOTE | 2023-05-27 09:51 | NURSING ---
Patient off floor to appt with Dr. Melendez.
--- NOTE | 2023-05-27 10:13 | NURSING ---
Addendum entered by Mona Burroughs 05/27/23 11:09: Called Dr. Melendez's office to clarify orders, says for patient to be on metoprolol and other meds that he's not on here. Await return call. Addendum entered by Willard Saeed 05/27/23 10:50: PT RETURNED TO FLOOR FROM APPOINTMENT SEE NEW ORDERS. Original Note: PT LEFT FLOOR BY WHEEL CHAIR AT [address] MELENDEZ APPOINTMENT.
[2023-05-27 16:00] VITALS: BP 112/68; PULSE 70; RESP 18; TEMP 36.4; O2SAT 97
--- NOTE | 2023-05-27 16:28 | CASEMGMT ---
Social Work IDT met with patient, and son for care plan meeting. Discussed patient's progress in PT/OT/SN. Educated to [facility] insurance with NRD 05/26 and continued stay is not guaranteed with each review. Revisited resources provided for installation of grab bars. Encouraged for /son to contact the company to get that scheduled as soon as possible as [place] stressed pt needs the two handrails to complete steps. Therapy also stressed the importance of family being CGA-SBA with pt. Both expressed understanding. SW discussed needs at [place]. Pt/family in agreement with [facility], getting a FWW and BSC. SW to coordinate at [place]. Will continue to follow. Nini Grimm, FOLDER SEAMER AUTOMATIC TONGUE STITCHER
--- NOTE | 2023-05-27 18:17 | NURSING ---
CALLED TO GIVE ORDER CLARIFICATION. CONTINUE LOVENOX, D/C NORVASC,AND GIVE METOPROLOL 25MG DAILY. RN AWARE.
[2023-05-27] MEDS: Atorvastatin Calcium 10 MG Tablet PO (20:24)
[2023-05-28] MEDS: Enoxaparin 40 MG/0.4 ML Syringe SC (05:26)
[2023-05-28 06:24] LABS: Anion Gap 6 (5-15); BUN 11 mg/dL (7-18); BUN/Creat Ratio 22.2 RATIO (10-20); Calcium,Total 8.6 mg/dL (8.5-10.1); Chloride 100 mmol/L (98-107); EST Glomerular Filtration Rate 171 mL/min (>60); Est Glom Filt Rate - Afr Amer 207 mL/min (>60); Estimated Creatinine Clearance 71.25 ml/min; Glucose 98 mg/dL (74-106); Potassium 4.2 mmol/L (3.5-5.1); Sodium Level 132 mmol/L (136-145)
[2023-05-28 09:29] VITALS: BP 129/69; PULSE 75; O2SAT 96
[2023-05-28 09:30] VITALS: PULSE 75; RESP 18; O2SAT 96
[2023-05-28] MEDS: Menthol/Lanolin/Calamine/Znox 113 GM Tube 1 APPLIC TOPICAL ×2 (09:58→20:58)
[2023-05-28] MEDS: Doxycycline 100 MG CAPSULE PO (09:58)
[2023-05-28 09:59] VITALS: BP 129/69; PULSE 75
[2023-05-28] MEDS: Tolterodine Tartrate 2 MG CAP.SA PO (09:59)
[2023-05-28] MEDS: Ensure Plus High Protein 120 ML LIQUID PO ×3 (09:59→17:40)
[2023-05-28] MEDS: Nystatin Powder 15gm Bottle 1 APPLIC TOPICAL ×2 (09:59→20:58)
[2023-05-28] MEDS: Senna Tablet 1 TABLET PO ×2 (09:59→20:58)
[2023-05-28] MEDS: Metoprolol(XL)Succ 25 MG Tablet PO (09:59)
--- NOTE | 2023-05-28 10:00 | RAD_ITS ---
STUDY: X-RAY CHEST REASON FOR EXAM: Male, 82 years old. Pre-surgical TECHNIQUE: PA and lateral views of the chest. COMPARISON: Comparison is made with prior study dated May 20, 2023. FINDINGS: Hyperinflation. Minimal residual changes at the right lung base suggestive of possible scarring. There is no demonstrated pleural abnormality. Normal size heart. Normal mediastinum and cristofer. There is prominence of the pulmonary hilar arteries without peripheral pulmonary vascular congestion, suggesting pulmonary hypertension. There is atherosclerotic calcification of the aortic arch with tortuosity. Normal visualized thoracic spine. Normal visualized ribs, clavicles, and shoulders. A right-sided percutaneous biliary catheter as well as a common bile duct stent are seen. RAD/Chest PA and Lateral IMPRESSION: Hyperinflation. Minimal residual changes at the right lung base suggestive of scarring. Electronically Signed: Lazaro Abebe MD at 10:21 EDT ,
[2023-05-28] MEDS: 0.9% Saline Lock 10 ML Syringe IV (10:17)
--- NOTE | 2023-05-28 11:41 | NURSING ---
Addendum entered by Mona Burroughs 05/29/23 11:07: Call from Lisa that they don't have info. Clarified that fax number correct, faxed again. Original Note: Labs, EKG, type and screen, cxray, Dr. Melendez's note all faxed to Dr. Polanco at [phone]. Called and updated Rosa Maria at the office, let her know medical records will be sending the images for the xray as well.
[2023-05-28 14:12] VITALS: BP 113/65; PULSE 62; RESP 18; TEMP 36.7; O2SAT 98
--- NOTE | 2023-05-28 15:51 | NURSING ---
DID TEACHING WITH PT AND PT ON CARE AND EMPTYING OF PT RT BILIARY DRAIN. PT ACCEPTING WELL AND UNDER STOOD. NOT TO ACCEPTING OF IT AND STATED I GUESS IF I HAVE TO LEARN. STATED TO WHEN SHE COMES BACK TO VISIT WE WOULD DO MORE TEACHING. STATED I'M NOT GOING TO BE LIVING HERE. STATED TO PT TO START EMPTYING HIS BAG WHEN NEEDED WITH STAFF WITH HIM IF ANY HELP OR QUESTIONS. PT STATED OK.
--- NOTE | 2023-05-28 17:12 | CASEMGMT ---
Addendum entered by Nini Grimm 05/29/23 15:41: [facility] can accept. DC orders sent via [facility]Port. Addendum entered by Nini Grimm 05/29/23 13:46: [facility] cannot accept d/t staffing. SW followed up with pt on other [facility] preferences. Pt provided: [facility], [facility]. SW made referrals via [facility]Port. Addendum entered by Nini Grimm 05/29/23 11:19: SW followed up with pt on HHC choice. Pt prefers [facility]. SW phoned referral to [facility] for PT/OT/SN. Original Note: Social Work Insurance issued LCD 05/29, DC 05/30. Pt was actively speaking with on the phone. SW spoke with pt to update, explained appeal rights and discussed DC plans. Pt and confirm the plan is to DC home, though they both remain persistent with uncertainty of when pt would be transferring to [place]. SW redirected both to remaining focused on DC from U, and this worker will coordinate needs for going home. If pt gets transferred to [place] sooner, the services can be placed on hold. Both expressed understanding. SW provided list of skilled C agencies with quality and resource data via [employer] Guide. Pt stated his [birth year] is [birth year] and SW offered for pt to DC [birth year]/29. Pt and agreeable. to transport. SW sent referral to [facility] for FWW and BSC via [facility]Port. Plan: DC home with and son 05/29, [facility] PT/OT/SN, FWW, BSC Nini Grimm, AURELIA TAYLORW
--- NOTE | 2023-05-28 17:18 | DS.PCM_ITS ---
Providers Date of Admission: 05/19/23 Primary Care Physician: Dr. Cameron Woods MD Reason For Visit: DISORDER OF PERITINEUM Diagnosis Discharge Diagnosis (1) Debility: Status: Acute Code(s): R53.81 - Other malaise (2) Painless jaundice: Status: Acute Code(s): R17 - Unspecified jaundice (3) Pancreatic mass: Status: Acute Code(s): K86.89 - Other specified diseases of pancreas (4) Bile leak: Status: Acute Code(s): K83.9 - Disease of biliary tract, unspecified (5) Pneumoperitoneum: Status: Acute Code(s): K66.8 - Other specified disorders of peritoneum (6) COPD (chronic obstructive pulmonary disease): Status: Chronic Code(s): J44.9 - Chronic obstructive pulmonary disease, unspecified (7) Essential (primary) hypertension: Status: Acute Code(s): I10 - Essential (primary) hypertension (8) Hyperlipidemia: Status: Acute Code(s): E78.5 - Hyperlipidemia, unspecified (9) Overactive bladder: Status: Acute Code(s): N32.81 - Overactive bladder Plan 82 year old male with pneumoperitoneum after ERCP with sphincterotomy and CBD/pancreatic stents for obstructive jaundice from pancreatic head mass s/p percutaneous transhepatic cholangiogram 05/10/2023, now s/p replaced stent 05/11/2023, admitted to TCU with debility, here for rehabilitation, strengthening, prior to discharge home with . * Debility - PT/OT. * Pain - monitor. * Bowel - Senokot 1 tablet bid. * Adult immunization - Administer pneumonia vaccine, covid vaccine, flu vaccine as appropriate. * DVT prophylaxis - monitor. * COPD - Albuterol 2 puffs q6 prn. * Hypertension - Amlodipine 2.5mg daily. * Hyperlipidemia - Atorvastatin 10mg qhs. * Nutrition - Ensure Plus 120ml tidcm. * Skin irritation - Calmoseptine topical bid. * Overactive bladder - Tolterodine 2mg daily. Medications at Discharge Home Medications atorvastatin 10 mg tablet 10 mg PO QHS 30 days #30 tabs 05/28/23 metoprolol succinate 25 mg tablet,extended release 24 hr 25 mg PO DAILY 30 days #30 tabs 05/28/23 tolterodine 2 mg capsule,extended release 24 hr 2 mg PO DAILY 30 days #30 caps 05/28/23 Hospital Course Operations - (See below.) Procedures - (See below.) Summary of Care Provided Minutes Spent on Discharge: 35 Hospital Course: 82 year old male with pneumoperitoneum after ERCP with sphincterotomy and CBD/pancreatic stents for obstructive jaundice from pancreatic head mass s/p percutaneous transhepatic cholangiogram 05/10/2023, now s/p replaced stent 05/11/2023, admitted to TCU with debility, here for rehabilitation, strengthening, prior to discharge home with . 05/27/2023 Dr. Melendez saw resident for preoperative cardiac clearance, summary follows: (1) Preop cardiovascular exam: Status: Acute Plan: He is here for preoperative cardiac evaluation for Whipple procedure. His last echocardiogram had demonstrated preserved ejection fraction in May with an estimated EF of 74% and no valvular dysfunction. He appears to be in sinus rhythm at this time. My recommendation is for him to continue the current medical therapy including his beta-yamilet up to and including the day of surgery. At this time I do not think that he is a candidate for anticoagulation and I would not recommend any medication changes or testing prior to his upcoming surgery. I have suggested to him that his risk perioperatively for the event is probably of the order of 2 to 5%. Discharge home with /son 05/30/2023, [facility] PT/OT/SN, FWW, BSC. FWW: Patient is unsafe to use a cane and requires a walker for ambulation in the home and the community. BSC: Patient is unable to access bathroom safely and requires bedside commode. Dr. Polanco ([facility]) planning Whipple surgery 06/16/2023. Physical Exam Const alert General Appearance: cooperative HEENT normocephalic Eyes PERRL and EOMs intact bilaterally Neck supple, no JVD and no carotid bruits Resp normal respiratory effort, normal air movement and clear to auscultation bilaterally Cardio regular rate and regular rhythm GI normal to inspection, nondistended, normoactive bowel sounds, non-tender and non-distended GI Narrative: RUQ drain end capped. Extremity normal capillary refill General Extremity: Negative for edema Skin no rashes or lesions noted Skin Narrative: Mild jaundice. General Skin Exam: no breakdown Psych affect normal Appearance: appropriate Weight / BMI Weight Weight: 72.076 kg Body Mass Index (BMI) 23.5 ABG / Lab / Microbiology Data 05/27/23 05:13 05/28/23 05:11 Laboratory: Laboratory Results - last 24 hr 05/27/23 16:50: Blood Type AB POSITIVE, Antibody Screen NEGATIVE 05/28/23 05:11: Sodium 132 L, Potassium 4.2, Chloride 100, Carbon Dioxide 26.0, Anion Gap 6, BUN 11, Creatinine 0.50 L, Estim Creat Clear Calc 71.25, Est GFR (MDRD) Af Amer 207, Est GFR (MDRD) Non-Af 171, BUN/Creatinine Ratio 22.2 H, Glucose 98, Calcium 8.6 Microbiology: Microbiology 05/26/23 09:30 Urine, Clean Catch Urine Culture - Final Culture exhibits no growth. 05/20/23 18:40 Urine Catheter - Catheter Urine Culture - Final Culture exhibits no growth. Radiography Diagnostic Testing: Radiology Impression Chest X-Ray 05/28/23 10:00 IMPRESSION: Hyperinflation. Minimal residual changes at the right lung base suggestive of scarring. Electronically Signed: Lazaro Abebe MD at 10:21 EDT , D/C Instructions Discharge Diet: No restrictions Discharge Activity: Return to Normal Activity, May Shower and Use Walker Weight Bearing Status: Weight bearing as tolerated Call your doctor if you observe: Fever of 101 or Higher, Inability to urinate, Inability to have a bowel movement, Shortness of breath, Dizziness, Fainting spells, Swelling in the ankles, Chest pain and Uncontrolled pain Additional Instructions: Discharge home with /son 05/30/2023, [facility] PT/OT/SN, FWW, BSC. FWW: Patient is unsafe to use a cane and requires a walker for ambulation in the home and the community. BSC: Patient is unable to access bathroom safely and requires bedside commode. Dr. Polanco ([facility]) planning ipple surgery 06/16/2023. Please Follow Up With: Dr. Nolan Polanco (surgical oncology) When: As planned. Meaningful Use Info Meaningful Use Diagnoses (Choose all that apply): None applicable Discharge Plan Admission Admit Date/Time: 05/19/23 16:46 Primary Reason for Your Visit: Debility. Attending Provider: Anmol Johnson Chi Primary Care Provider: Cameron Woods Instructions Additional Instructions / Restrictions: Discharge home with /son 05/30/2023, [facility] PT/OT/SN, FWW, BSC. FWW: Patient is unsafe to use a cane and requires a walker for ambulation in the home and the community. BSC: Patient is unable to access bathroom safely and requires bedside commode. Dr. Polanco ([facility]. Discharge Orders/Prescriptions Prescriptions: New tolterodine 2 mg Capsule,Extended Release 24hr 2 mg PO DAILY 30 Days Qty: 30 0RF atorvastatin 10 mg Tablet 10 mg PO QHS 30 Days Qty: 30 0RF metoprolol succinate 25 mg Tablet Extended Release 24 Hr 25 mg PO DAILY 30 Days Qty: 30 0RF Discontinued metoprolol succinate 25 mg tablet extended release 24 hr 25 mg PO DAILY atorvastatin 10 mg tablet 10 mg PO DAILY enoxaparin 40 mg/0.4 mL syringe 40 mg subcut DAILY methocarbamol 750 mg tablet 750 mg PO TID pantoprazole 40 mg tablet,delayed release (DR/EC) 40 mg PO DAILY trospium 20 mg tablet 20 mg PO BID Rx Instructions: administer on an empty stomach tolterodine 2 mg capsule,extended release 24hr 2 mg PO DAILY tramadol 50 mg tablet 50 mg PO Q6H PRN albuterol sulfate 90 mcg/actuation HFA aerosol inhaler 2 puff INHALATION Q6H PRN (Reason: wheezing) Referrals / Follow Up: Cameron Woods MD [Primary Care Provider] - (patient made own appt with office ) Disposition Disposition (needs filled in before D/C Order can be placed): Home Health Service
[2023-05-28] MEDS: Atorvastatin Calcium 10 MG Tablet PO (20:58)
--- NOTE | 2023-05-29 05:00 | NURSING ---
Pt called through call system and this nurse answered and patient stated You better come back here and see the mess I've made. This nurse went directly back to patients room and patient stated, I've created a mess. Patient had pulled off his underwear and pants. Patients biliary bag was still intact and no mess was to be found. patient had emptied biliary bag into the trash can but no mess was made. Patient was able to state where he was but not what time of night/day it was and seemed to be confused when stating I woke up and ruined the world. This nurse reassured patient he did not ruin the world and that everything appeared to be ok.
[2023-05-29] MEDS: Enoxaparin 40 MG/0.4 ML Syringe SC (06:32)
[2023-05-29 06:35] LABS: Anion Gap 5 (5-15); BUN 14 mg/dL (7-18); BUN/Creat Ratio 23.1 RATIO (10-20); Calcium,Total 8.6 mg/dL (8.5-10.1); Chloride 102 mmol/L (98-107); Creatinine, Serum 0.61 mg/dL (0.70-1.30); EST Glomerular Filtration Rate 136 mL/min (>60); Est Glom Filt Rate - Afr Amer 164 mL/min (>60); Estimated Creatinine Clearance 71.25 ml/min; Glucose 98 mg/dL (74-106); Potassium 3.9 mmol/L (3.5-5.1); Sodium Level 134 mmol/L (136-145)
[2023-05-29] MEDS: Ensure Plus High Protein 120 ML LIQUID PO ×3 (08:30→17:34)
[2023-05-29] MEDS: Nystatin Powder 15gm Bottle 1 APPLIC TOPICAL ×2 (08:30→21:25)
[2023-05-29 08:31] VITALS: BP 134/73; PULSE 65
[2023-05-29] MEDS: Senna Tablet 1 TABLET PO ×2 (08:31→21:24)
[2023-05-29] MEDS: Metoprolol(XL)Succ 25 MG Tablet PO (08:31)
[2023-05-29] MEDS: Menthol/Lanolin/Calamine/Znox 113 GM Tube 1 APPLIC TOPICAL ×2 (08:31→21:24)
[2023-05-29] MEDS: Tolterodine Tartrate 2 MG CAP.SA PO (08:31)
[2023-05-29 09:42] VITALS: O2SAT 95
--- NOTE | 2023-05-29 11:20 | CASEMGMT ---
Social Work BIMS () and PHQ-2 () completed for MDS assessment. Nini Grimm MSW TELEMETRY MONITOR
[2023-05-29 12:39] VITALS: BP 105/66; PULSE 63; RESP 16; TEMP 36.3; O2SAT 97
[2023-05-29] MEDS: Atorvastatin Calcium 10 MG Tablet PO (21:24)
[2023-05-29] MEDS: 0.9% Saline Lock 10 ML Syringe IV (21:25)
[2023-05-30] MEDS: Enoxaparin 40 MG/0.4 ML Syringe SC (05:58)
[2023-05-30] MEDS: Ensure Plus High Protein 120 ML LIQUID PO (09:14)
[2023-05-30] MEDS: Menthol/Lanolin/Calamine/Znox 113 GM Tube 1 APPLIC TOPICAL (09:15)
[2023-05-30] MEDS: Nystatin Powder 15gm Bottle 1 APPLIC TOPICAL (09:15)
[2023-05-30] MEDS: Tolterodine Tartrate 2 MG CAP.SA PO (09:17)
[2023-05-30 09:18] VITALS: BP 124/64; PULSE 77
[2023-05-30] MEDS: Metoprolol(XL)Succ 25 MG Tablet PO (09:18)
[2023-05-30 09:22] VITALS: BP 124/64; PULSE 77; RESP 16; TEMP 36.6; O2SAT 98
[2023-05-30 11:20] VITALS: BP 124/64; PULSE 77; RESP 16; TEMP 36.6; O2SAT 98
--- NOTE | 2023-06-01 11:27 | MDS.RN ---
Information for the mds was obtained from review of the clinical record, interview of resident, staff, and direct observation of resident's care.
== END 2023-05-30 11:20 | disposition home health service (06) | DRG 949 ==
PROVIDERS: Admitting Provider Family Medicine Geriatric Medicine; PCP Family Medicine; Visit Provider Family Medicine Geriatric Medicine
DX: Z48.815 Encounter for surgical aftercare following surgery on the digestive system (principal); K83.1 Obstruction of bile duct; J18.9 Pneumonia, unspecified organism; R17 Unspecified jaundice; C25.0 Malignant neoplasm of head of pancreas; J44.9 Chronic obstructive pulmonary disease, unspecified; I10 Essential (primary) hypertension; E78.00 Pure hypercholesterolemia, unspecified; Z87.891 Personal history of nicotine dependence; N32.81 Overactive bladder; Z79.899 Other long term (current) drug therapy
CPT/HCPCS: 36415; 71046; 74018; 80048; 80053; 80061; 81001; 83930; 83935; 84300; 85025; 85610; 86850; 86900; 86901; 87086; 93005; 97110; 97116; 97162; 97166; 97530; 97535; 97802; A4216

== ENCOUNTER → 2023-05-26 | Outpatient (CLI) | payer MEDICARE, SELFPAY ==
--- NOTE | 2023-05-26 09:50 | CT_ITS ---
STUDY: CT ABDOMEN AND PELVIS WITH CONTRAST REASON FOR EXAM: Male, 82 years old. PANCREATIC CANCER RADIATION DOSAGE (If Supplied By Facility): CTDIvol = ( 14.83 ) mGy, DLP = ( 660.89 ) mGycm TECHNIQUE: Transaxial images were obtained from the dome of the diaphragm to the symphysis pubis without oral contrast. Oral and amp; IV Gastrografin and amp; 100mL Isovue-300 was administered. Sagittal and coronal images were reconstructed. Individualized dose optimization techniques were used for this CT. COMPARISON: Comparison is made with prior study May 09, 2023. FINDINGS: Small right pleural effusion. Mild increased markings at the lung bases slightly more prominent on the right side suggestive of scarring and/or atelectasis. Coronary calcification. There is decreased attenuation of the liver consistent with steatosis. Dilated central intrahepatic biliary ducts. There is evidence of pneumobilia. The patient is status post cholecystectomy. A common bile duct stent is visualized. There is also evidence of a right percutaneous biliary drainage catheter in place. There is dense material within the distended gallbladder. This is suggestive of a contrast media. Normal spleen. Stable appearance of the head of pancreas with heterogeneous soft tissue density. Normal bilateral adrenal glands. Normal right kidney. Normal left kidney. Normal visualized stomach. Normal small intestine. There are multiple colonic diverticula consistent with diverticulosis. There is non-visualization of the appendix. There is diffuse atherosclerotic calcification of the abdominal aorta. 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 There is evidence of a calcification of the pelvic arteries. Normal inferior vena cava. Normal retroperitoneum. Diffuse bilateral wall thickening suggestive of cystitis. Stable appearance of the bladder diverticulum in the posterior lateral aspect of the bladder. Small amount of air is seen within the bladder most likely secondary to prior Jara placement. Prostatic enlargement with calcification. Normal abdominal wall. There are diffuse degenerative changes of the visualized lumbar spine. CT/Abdomen/Pelvis WITH Contrast IMPRESSION: Small right pleural effusion. There is evidence of a biliary stent within the common bile duct as well as percutaneous biliary catheter placement. Fatty infiltration of the liver. Heterogeneous enlargement of the head of the pancreas. 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 Bladder wall thickening with a stable small diverticulum in the posterolateral wall of the bladder. Small amount of air is seen within the urinary bladder. Electronically Signed: Lazaro Abebe MD at 13:54 EDT ,
== END | disposition home or self-care (01) ==
PROVIDERS: PCP Family Medicine; Referring Provider Family Medicine Geriatric Medicine; Visit Provider Family Medicine Geriatric Medicine
DX: C25.9 Malignant neoplasm of pancreas, unspecified (principal)
CPT/HCPCS: 74177; Q9967; A4216

== ENCOUNTER 2023-07-02 08:00 | Outpatient (RCR) | payer SELFPAY | END 2023-07-07 23:59 | LOC: PR 08:00 | PROVIDERS: PCP Family Medicine; Visit Provider Family Medicine | DX: Z00.00 Encounter for general adult medical examination without abnormal findings (principal) ==

== ENCOUNTER 2023-07-07 16:16 | Inpatient (IN) | payer MEDICARE, SELFPAY ==
[2023-07-07 16:34] VITALS: BP 137/78; PULSE 67; RESP 17; TEMP 36.6; O2SAT 96
[2023-07-07 16:39] VITALS: BMI 24.6
[2023-07-07 16:45] VITALS: BMI 24.5
[2023-07-07] MEDS: Ensure Plus High Protein 120 ML LIQUID PO (17:39)
--- NOTE | 2023-07-07 19:49 | HP.PCM_ITS ---
HPI - General General Date of Admission: 07/07/23 Date of Service: 07/07/23 Chief Complaint: Here for rehabilitation. HPI Narrative JENNIFER VILLAGRAN, is a 83 Male who presents with followin06/16/2023 Admit to [facility]. Patient was taken to OR for a whipple procedure on 06/16/2023 that was complicated by a duodenal jejunal anastomotic leak requiring takeback to OR on 06/24/2023 for washout and repair. The patient did well postoperatively. He did develop a pelvic fluid collection and underwent CT guided drainage. Fluid culture grew strep constellatus. The patient was initally on TPN, but has since been transitioned to goal tube feeds and oral soft diet. Patient discharged on Augmentin for 2 weeks. At time of discharge g tube is clamped, tube fees through J port, percutaneous transhepatic cholangiostomy tube is clamped, and CT guided drainage tube remains in place. His midline wound is being changed twice a day with dakins sloaed wet to dry dressing and application of santyl collagenase. 07/07/2023 Admit to TCU with debility, here for rehabilitation, strengthening, wound care, prior to discharge home with . [facility] Medical History (Updated 07/07/23 @ 20:[address] Anmol Johnson MD) Afib COPD (chronic obstructive pulmonary disease) Essential (primary) hypertension History of COPD Hypercholesteremia Hyperlipidemia Overactive bladder Preoperative clearance RBBB Ventricular premature complex Home Medications atorvastatin 10 mg tablet 10 mg PO QHS Cholesterol 30 days #30 tabs 05/28/23 [Rx Last Taken Unknown] metoprolol succinate 25 mg tablet,extended release 24 hr 25 mg PO DAILY BP 30 days #30 tabs 05/28/23 [Rx Last Taken 07/07/23 08:20] tolterodine 2 mg capsule,extended release 24 hr 2 mg PO DAILY Overactive Bladder 30 days #30 caps 05/28/23 [Rx Last Taken Unknown] acetaminophen 500 mg tablet 500 mg PO Q6H PRN pain (scale score 1-3) 07/07/23 [History Last Taken 07/03/23] albuterol sulfate 90 mcg/actuation aerosol inhaler 1 - 2 puff inhalation Q4H PRN PRN shortness of breath or wheezing 07/07/23 [History Last Taken Unknown] amlodipine 2.5 mg tablet 2.5 mg PO DAILY BP 07/07/23 [History Last Taken 07/07/23 08:20] amoxicillin 875 mg-potassium clavulanate 125 mg tablet 1 tab PO BID Antibiotic 07/07/23 [History Last Taken Unknown] calcium carbonate (Calcium 600) 600 mg PO DAILY Supplement 07/07/23 [History Last Taken Unknown] collagenase clostridium histo. 250 unit/gram topical ointment 1 applic topical DAILY Wound Care 07/07/23 [History Last Taken 07/07/23 08:30] magnesium 250 mg tablet 250 mg PO DAILY Supplement 07/07/23 [History Last Taken Unknown] methocarbamol 500 mg tablet 500 mg PO TID Muscle Spasms 07/07/23 [History Last Taken Unknown] ondansetron 4 mg disintegrating tablet 4 mg PO Q8H PRN nausea and vomiting 07/07/23 [History Last Taken Unknown] oxybutynin chloride 5 mg tablet,extended release 24 hr 5 mg PO DAILY dysuria 07/07/23 [History Last Taken Unknown] oxycodone 5 mg capsule 5 mg PO DAILY pain (4-10) 07/07/23 [History Last Taken 07/06/23] polyethylene glycol 3350 17 gram/dose oral powder 17 g PO DAILY Constipation 07/07/23 [History Last Taken Unknown] potassium 99 mg tablet 99 mg PO DAILY Supplement 07/07/23 [History Last Taken Unknown] pyridoxine (vitamin B6) 10 mg tablet 10 mg PO DAILY Supplement 07/07/23 [History Last Taken Unknown] simvastatin 10 mg tablet 10 mg PO QHS Cholesterol 07/07/23 [History Last Taken Unknown] sodium hypochlorite 0.25 % solution (Dakin's Solution) 1 applic topical DAILY Wound Care 07/07/23 [History Last Taken 07/07/23] vitamin B12 500 mcg-folic acid 400 mcg tablet 1 tab PO DAILY Supplement 07/07/23 [History Last Taken Unknown] vitamin E (dl, acetate) 180 mg (400 unit) capsule 180 mg PO DAILY Supplement 07/07/23 [History Last Taken Unknown] Allergy/AdvReac Type Severity Reaction Status Date / Time No Known Allergies Allergy Verified 05/27/23 09:56 Surgical History (Updated 07/07/23 @ 19:[address] Anmol Johnson MD) History of appendectomy History of common bile duct surgery History of hernia surgery History of Whipple procedure Social History household members: spouse Smoking Status: Former smoker how long ago did patient quit smokin years ago alcohol intake: former details: Quit on admission substance use type: does not use caffeine: Yes Type: coffee Number of servings: 1 ROS Constitutional Constitutional: Denies chills, fever(s) or weight gain ENT HEENT: Denies headache(s), nasal congestion or nasal discharge Cardiovascular Cardiovascular: Denies chest pain or palpitations Respiratory/Chest Respiratory/Chest: Denies cough, excessive phlegm production or shortness of breath with exertion Gastrointestinal Gastrointestinal: Denies abdominal pain, nausea or vomiting Genitourinary Genitourinary: Denies dysuria Musculoskeletal Musculoskeletal: Denies joint pain or joint swelling Integumentary Integumentary: Denies rash or wounds Neurologic Neurologic: Reports weakness; Denies focal weakness, numbness or tingling Psychiatric Psychiatric: Denies anxiety, auditory hallucinations, depression, homicidal ideation or suicidal ideation Vital Signs Vital Signs Vital Signs: 07/07/23 16:34 07/07/23 16:34 Temperature 97.8 F Temperature Source Temporal Pulse Rate 67 Pulse Rhythm Regular Pulse Strength Normal (2+) Respiratory Rate 17 Respiratory Effort Normal Non-Labored Respiratory Depth Normal Respiratory Pattern Normal Blood Pressure 137/78 H Blood Pressure Mean 97 Blood Pressure Source Monitor Blood Pressure Position Semi-Fowlers Blood Pressure Location Right Forearm Pulse Ox 96 Oxygen Delivery Method Room Air Room Air Weight Weight: 73.284 kg Body Mass Index (BMI) 24.5 Physical Exam Const alert General Appearance: cooperative HEENT normocephalic Eyes PERRL and EOMs intact bilaterally Neck supple, no JVD and no carotid bruits Resp normal respiratory effort, normal air movement and clear to auscultation bilaterally Cardio regular rate and regular rhythm GI normal to inspection, nondistended, normoactive bowel sounds, non-tender and non-distended GI Narrative: Midline incision dressed. Percutaneous transhepatic cholangiostomy tube RUQ, G tube LUQ, CT guided drainage tube LLQ. Extremity normal capillary refill General Extremity: Negative for edema Skin no rashes or lesions noted General Skin Exam: no breakdown Psych affect normal Appearance: appropriate Assessment & Plan Assessment/Plan (1) Debility: (2) Pancreatic cancer: (3) H/O Whipple procedure: (4) COPD (chronic obstructive pulmonary disease): (5) Hyperlipidemia: (6) Essential (primary) hypertension: (7) Overactive bladder: PLAN: Plan 83 year old male with below past medical history hospitalized for Whipple p rocedure 06/16/2023, complicated by duodenal/jejunal anastomotic leak requiring redo, pelvic abscess requiring CT guided drainage, admitted to TCU with debility, here for rehabilitation, strengthening, prior to discharge home with . * Debility - PT/OT. * Pain - Tylenol 1000mg q6 prn pain (1-10), Oxycodone 5mg daily thru 07/13/2023. * Bowel - Miralax 17gm daily, senna/colace 2 tablets bid. * Adult immunization - Administer pneumonia vaccine, covid vaccine, flu vaccine as appropriate. * DVT prophylaxis - Lovenox 40mg sc daily. * COPD - Albuterol 1-2 puff q4 prn. * Hypertension - Metoprolol succinate 25mg daily, Amlodipine 2.5mg daily. * strep constellatus pelvic abscess - Augmentin 875mg bid thru 07/21/2023. * Hyperlipidemia - Atorvastatin 10mg qhs. * Calcium deficiency - Calcium 500mg daily. * Midline abdominal wound - Dakins topical daily, Santyl topical daily, consult wound nurse. * Nutrition - Ensure Plus 120ml tidcm. * Folate/Vitamin B deficiency - Folic acid/Vitamin B complex daily. * Hypomagnesemia - Magnesium chloride 128mg daily. * Muscle spasm - Robaxin 500mg tid thru 07/17/2023. * Nausea - Zofran 4mg q8h prn. * Overactive bladder - Tolterodine 2mg daily. * Vitamin E deficiency - Vitamin E 400iu daily.
[2023-07-07] MEDS: Amox/Clavulanate 875 MG Tablet PO (20:02)
[2023-07-07] MEDS: Methocarbamol 500 MG Tablet PO (20:04)
[2023-07-07] MEDS: Atorvastatin Calcium 10 MG Tablet PO (20:06)
[2023-07-08 05:15] VITALS: BMI 24.5
[2023-07-08] MEDS: Methocarbamol 500 MG Tablet PO (05:24)
[2023-07-08] MEDS: Enoxaparin 40 MG/0.4 ML Syringe SC (05:24)
[2023-07-08 05:43] LABS: Absolute Neutrophil Count 8.2 X10^3/uL (2.0-7.7); Basophil# 0.08 X10^3/uL; Basophil% 0.7 % (0-1); Eosinophil# 0.35 X10^3/uL; Hemoglobin 9.1 g/dL (13.0-16.5); Lymphocyte % 16.2 % (19-41); Mean Corp Hgb Conc 32.5 g/dL (32-36); Mean Corpuscular Hgb 31.5 pg (27.0-32.0); Mean Corpuscular Volume 96.9 fL (80-94); Mean Platelet Vol. 9.3 fl (6.2-12.0); Monocyte# 1.18 X10^3/uL; NRBC Flagged by Analyzer 0 % (0-5); Neutrophil # 8.19 X10^3/uL (2.7-7.7); Neutrophil % 69.7 % (47-70); Platelet Count 357 K/mm3 (150-450); RBC Distribution Width CV 13.6 % (11.6-14.6); RBC Distribution Width SD 48.3 fl (35.1-43.9); Red Blood Count 2.89 M/mm3 (4.6-6.2); White Blood Count 11.8 K/mm3 (4.4-11.0)
[2023-07-08 06:14] LABS: Anion Gap 2 (5-15); BUN 11 mg/dL (7-18); Calcium,Total 8.3 mg/dL (8.5-10.1); Chloride 102 mmol/L (98-107); Creatinine, Serum 0.48 mg/dL (0.70-1.30); EST Glomerular Filtration Rate 179 mL/min (>60); Est Glom Filt Rate - Afr Amer 216 mL/min (>60); Estimated Creatinine Clearance 70.06 ml/min; Glucose 106 mg/dL (74-106); Potassium 3.8 mmol/L (3.5-5.1); Sodium Level 135 mmol/L (136-145)
--- NOTE | 2023-07-08 08:11 | PHA.CONS_ITS ---
Documented by User: Laura Orozco 07/08/23 08:35 TCU RX Drug Regimen Review Subjective/Objective Subjective/Objective: Subjective: TCU Admission. 83 YOM, TCU resident, sent to [facility] for whipple prodecure. Hospitalized for Whipple procedure 06/16/2023, complicated by duodenal/jejunal anastomotic leak requiring redo, pelvic abscess requiring CT guided drainage. Admitted to TCU with debility for strengthening and rehabilitation. Objective: Allergies No Known Allergies Allergy (Verified 05/27/23 09:56) Current Medications Generic Name Dose Route Start Last Admin Trade Name Freq PRN Reason Stop Dose Admin Acetaminophen 1,000 mg 07/07/23 20:12 Acetaminophen 500 Mg Tablet PO Q6H PRN PRN Pain Score 1-10 Albuterol Sulfate 1 - 2 puff 07/07/23 16:47 Albuterol Ih (6.7 Gm) 1 Puff Inhaler INHALATION Q4H PRN PRN shortness of breath/wheezing Amlodipine Besylate 2.5 mg 07/08/23 10:00 Amlodipine 2.5 Mg Tablet PO DAILY [facility] Protocol Amoxicillin/Clavulanate Potassium 875 mg 07/07/23 22:00 07/07/23 20:02 Amox/Clavulanate 875 Mg Tablet PO 07/21/23 17:01 875 mg BIDCM JOON Administration Atorvastatin Calcium 10 mg 07/07/23 22:00 07/07/23 20:06 Atorvastatin Calcium 10 Mg Tablet PO 10 mg QHS JOON Administration Calcium Carbonate 500 mg 07/08/23 12:00 Calcium (Elemental) 500 Mg Tablet PO LUNCH JOON Collagenase 1 applic 07/08/23 10:00 Collagenase 30gm Tube TOPICAL DAILY [facility] Protocol Heparin Sodium (Beef Lung) 50 units 07/07/23 16:36 Heparin Pf Lock 10 Units/Ml 50 Units/5 Ml Syringe IV UD PRN PICC Line Heparin Flush Sodium Chloride 250 mls @ 15 mls/hr 07/07/23 16:36 IV .[id number] PRN Additional IVPB Infusion Sodium Chloride 250 mls @ 15 mls/hr 07/07/23 16:36 IV .[id number] PRN Saline Flush Lorazepam 0.5 mg 07/08/23 07:35 Lorazepam 0.5 Mg Tablet PO Q4H PRN PRN ANXIETY/RESTLESSNESS/SLEEP Magnesium Chloride 128 mg 07/08/23 10:00 Magnesium Chloride 64 Mg Delay Rel.Tablet PO DAILY [facility] Methocarbamol 500 mg 07/07/23 22:00 07/08/23 05:24 Methocarbamol 500 Mg Tablet PO 07/17/23 22:01 500 mg TID JOON Administration Metoprolol Succinate 25 mg 07/08/23 10:00 Metoprolol(Xl)Succ 25 Mg Tablet PO DAILY [facility] Protocol Multivit/Ca Carb/B Cmplx/FA/Prenat 1 cap 07/08/23 08:00 Folic Acid/Vitamin B Comp W-C 1 Capsule PO BREAKFAST [facility] Nutritional Formula (Lactose Free) 120 ml 07/07/23 17:45 07/07/23 17:39 Ensure Plus High Protein 120 Ml Liquid PO 120 ml TIDCM [facility] Administration Ondansetron HCl 4 mg 07/07/23 16:52 Ondansetron Odt 4 Mg Tablet PO Q8H PRN PRN nausea and vomiting Oxycodone HCl 5 mg 07/08/23 10:00 Oxycodone 5 Mg Tablet PO 07/13/23 10:01 DAILY [facility] Polyethylene Glycol 17 gm 07/08/23 10:00 Polyethylene Glycol 3350 17 Gm Packet PO DAILY [facility] Senna/Docusate Sodium 2 tablet 07/07/23 22:00 07/07/23 21:06 Senna/Docusate Sodium 1 Tablet PO Not Given BID [facility] Sodium Chloride 10 - 40 ml 07/07/23 16:36 0.9 % Nacl (Sterile) Posiflush 10 Ml IV UD PRN Port access or dressing change Sodium Chloride 10 - 40 ml 07/07/23 16:36 0.9% Saline Lock 10 Ml Syringe IV UD PRN Open End PICC Flush Sodium Chloride 10 - 40 ml 07/07/23 16:36 0.9% Saline Lock 10 Ml Syringe IV UD PRN SALINE FLUSH Sodium Hypochlorite 1 applic 07/08/23 10:00 Dakin's Meli Half Strength (=0.25%) TOPICAL DAILY [facility] Protocol Tolterodine Tartrate 2 mg 07/08/23 10:00 Tolterodine Tartrate 2 Mg Cap.Sa PO DAILY [facility] Tuberculin PPD 0.1 ml 07/15/23 10:00 Tuberculin,Purif.Prot.Deriv. 50 Tu/Ml Vial ID 07/15/23 10:01 X1 ONE Tuberculin PPD 0.1 ml 07/08/23 10:00 Tuberculin,Purif.Prot.Deriv. 50 Tu/Ml Vial ID 07/08/23 10:01 X1 ONE Vitamin E 400 units 07/08/23 08:00 Vitamin E 400 Units Capsule PO BREAKFAST JOON Problem List (Updated 07/07/23 @ 20:[address] Anmol Johnson MD) COPD (chronic obstructive pulmonary disease) (Chronic) H/O Whipple procedure (Acute) Pancreatic cancer (Acute) Essential (primary) hypertension (Acute) Hyperlipidemia (Acute) Overactive bladder (Acute) Debility (Acute) Vital Signs Temp Pulse Resp BP Pulse Ox O2 Del Method 97.8 F 67 17 137/78 H 96 Room Air 07/07/23 16:34 07/07/23 16:34 07/07/23 16:34 07/07/23 16:34 07/07/23 16:34 07/07/23 16:34 Oxygen Delivery Method Room Air Weight: 73.437 kg Body Mass Index (BMI) 24.5 Sodium 135 mmol/L (136-145) L 07/08/23 05:28 Potassium 3.8 mmol/L (3.5-5.1) 07/08/23 05:28 Chloride 102 mmol/L (98-107) 07/08/23 05:28 Carbon Dioxide 31.0 mmol/L (21.0-32.0) 07/08/23 05:28 Anion Gap 2 (5-15) L 07/08/23 05:28 BUN 11 mg/dL (7-18) 07/08/23 05:28 Creatinine 0.48 mg/dL (0.70-1.30) L 07/08/23 05:28 Est GFR (MDRD) Af Amer 216 mL/min (>60) 07/08/23 05:28 Est GFR (MDRD) Non-Af 179 mL/min (>60) 07/08/23 05:28 BUN/Creatinine Ratio 23.0 RATIO (10-20) H 07/08/23 05:28 Glucose 106 mg/dL (74-106) 07/08/23 05:28 Assessment/Plan: 1. Pain: acetaminophen 1000mg PO Q6H PRN pain 1-10 and oxycodone 5mg PO daily thru 07/13/23. No PRN doses of acetaminophen have been given. Please continue to monitor for increased pain, PRN usage, constipation and respiratory depression. 2. Bowel: Miralax 17gm PO daily and senna 2T PO BID. No documented bowel movement so far. Please continue to monitor for constipation. 3. Strep constellatus pelvic abscess: Augmentin 875mg PO BIDCM thru 07/21/23. Please continue to monitor for S/S of infection, renal function (CrCl 70mL/min) and diarrhea. 4. COPD: albuterol 2 puff inhalation Q6H PRN wheezing. Resident has not had any doses so far. Please continue to monitor for wheezing and PRN usage. 5. Hypertension: amlodipine 2.5mg PO daily and metoprolol succinate 25mg PO daily. Please continue to monitor BP (last 137/78), HR (last 67), and swelling. 6. Hyperlipidemia: atorvastatin 10mg PO QHS. Please continue to monitor LFTs (last 05/25/23), lipid panel (last 05/21/23) and muscle pain. 7. Overactive bladder: tolterodine 2mg PO daily. Please continue to monitor for dementia/delirium (BEERs medication) and dry mouth. 8. Muscle spasm: methocarbamol 500mg TID thru 07/17/23. Please continue to monitor for anticholinergic side effects (BEERs medication), hypotension, bradycardia and drowsiness. 9. Nausea: ondansetron 4mg PO Q8H PRN nausea and vomiting. Resident has not received any doses so far. Please continue to monitor for nausea and PRN usage. 10. Midline abdominal wound: Dakins topical daily and Santyl topical daily. Pl ease continue to monitor. Wound nurse consulted. 11. Calcium/vitamin E/folate/vitamin B deficiencies and hypomagnesemia: calcium carbonate 500mg PO lunch, vitamin E 400units PO breakfast, folic acid/vitamin B complex 1C PO breakfast and magnesium chloride 128mg PO daily. Please continue to monitor calcium (last 8.3mg/dL) and magnesium (last 2.6mg/dL on 11/25/22). Assessment/Plan for indications treated with psychotropic medications: 1. Anxiety/restlessness/sleep: lorazepam 0.5mg PO Q4H PRN anxiety/restlessness/sleep. Resident has not had any doses so far. GDR not ap propriate as this is a new medication and no doses have been given. Please continue to monitor for PRN usage. If resident starts receiving doses, please monitor for dementia/delirium (BEERs), drowsiness and falls/fractures (BEERs). Medical chart and medication regimen reviewed. The following medication irregularities or issues were identified: None Date Date of Note:: 07/08/23 Documented by User: Dr. Anmol Johnson MD 07/08/23 08:34 TCU RX Drug Regimen Review Provider Comments Provider responsibility Provider Comments to Recommendations by Pharmacy: Agree
[2023-07-08] MEDS: Ensure Plus High Protein 120 ML LIQUID PO (09:06)
[2023-07-08] MEDS: Amox/Clavulanate 875 MG Tablet PO (09:08)
[2023-07-08] MEDS: Vitamin E 400 UNITS Capsule PO (09:08)
[2023-07-08] MEDS: Folic Acid/Vitamin B Comp W-C 1 Capsule 1 CAP PO (09:08)
[2023-07-08] MEDS: Tolterodine Tartrate 2 MG CAP.SA PO (09:08)
[2023-07-08 09:09] VITALS: BP 123/83; PULSE 79
[2023-07-08] MEDS: Metoprolol(XL)Succ 25 MG Tablet PO (09:09)
[2023-07-08] MEDS: Magnesium Chloride 64 MG Delay Rel.Tablet 128 MG PO (09:09)
[2023-07-08] MEDS: Polyethylene Glycol 3350 17 GM PACKET PO (09:09)
[2023-07-08] MEDS: Senna/Docusate Sodium 1 Tablet 2 TABLET PO (09:09)
[2023-07-08] MEDS: oxyCODONE 5 MG Tablet PO (09:09)
[2023-07-08] MEDS: amLODIPine 2.5 MG Tablet PO (09:09)
[2023-07-08] MEDS: Collagenase 30gm Tube 1 APPLIC TOPICAL (09:10)
[2023-07-08] MEDS: DAKIN'S SOL HALF STRENGTH (=0.25%) 1 APPLIC TOPICAL (09:10)
--- NOTE | 2023-07-08 09:31 | NURSING ---
pt just finished with therapy evaluation and noted that abd wound and MALICK drain bleeding through dressing. moderate amt of raúl noted. changed per wound orders. will update wound nurse. split gauze placed around MALICK site d/t bleeding from that insertion site too. pt resting in bed, call light in reach. alarm in place on bed.
[2023-07-08 09:37] VITALS: BP 123/83; PULSE 79; RESP 18; TEMP 36.2; O2SAT 96
[2023-07-08 10:00] VITALS: PULSE 79; RESP 16; O2SAT 96
[2023-07-08] MEDS: 0.9% Saline Lock 10 ML Syringe IV (10:52)
[2023-07-08 10:55] VITALS: BMI 24.2
[2023-07-08 11:11] VITALS: BP 70/41; PULSE 63; RESP 18; TEMP 36; O2SAT 92
--- NOTE | 2023-07-08 11:15 | NURSING ---
pt c/o dizziness and not feeling well, c/o back pain. hypotensive and color very pale/keyonna color. dr cloud notified of pt symptoms, new order to send pt to ER for evaluation. notified of transfer. see vitals. Report called to KARLA Aranda in ER.
--- NOTE | 2023-07-08 17:15 | DS.PCM_ITS ---
Providers Date of Admission: 07/07/23 Primary Care Physician: Dr. Cameron Woods MD Consultations 07/07/23 16:46 Consult: Onc/Wound/it application administrator Routine Comment: Reason for Consult:: Surgical abdominal incision Reason For Visit: OBSTRUCTION OF BILE DUCT Diagnosis Discharge Diagnosis (1) Debility: Status: Acute Code(s): R53.81 - Other malaise (2) Pancreatic cancer: Status: Acute Code(s): C25.9 - Malignant neoplasm of pancreas, unspecified (3) H/O Whipple procedure: Status: Acute Code(s): Z90.410 - Acquired total absence of pancreas; Z90.49 - Acquired absence of other specified parts of digestive tract (4) COPD (chronic obstructive pulmonary disease): Status: Chronic Code(s): J44.9 - Chronic obstructive pulmonary disease, unspecified (5) Hyperlipidemia: Status: Acute Code(s): E78.5 - Hyperlipidemia, unspecified (6) Essential (primary) hypertension: Status: Acute Code(s): I10 - Essential (primary) hypertension (7) Overactive bladder: Status: Acute Code(s): N32.81 - Overactive bladder Plan 83 year old male with below past medical history hospitalized for Whipple pro cedure 06/16/2023, complicated by duodenal/jejunal anastomotic leak requiring redo, pelvic abscess requiring CT guided drainage, admitted to TCU with debility, here for rehabilitation, strengthening, prior to discharge home with . * Debility - PT/OT. * Pain - Tylenol 1000mg q6 prn pain (1-10), Oxycodone 5mg daily thru 07/13/2023. * Bowel - Miralax 17gm daily, senna/colace 2 tablets bid. * Adult immunization - Administer pneumonia vaccine, covid vaccine, flu vaccine as appropriate. * DVT prophylaxis - Lovenox 40mg sc daily. * COPD - Albuterol 1-2 puff q4 prn. * Hypertension - Metoprolol succinate 25mg daily, Amlodipine 2.5mg daily. * strep constellatus pelvic abscess - Augmentin 875mg bid thru 07/21/2023. * Hyperlipidemia - Atorvastatin 10mg qhs. * Calcium deficiency - Calcium 500mg daily. * Midline abdominal wound - Dakins topical daily, Santyl topical daily, consult wound nurse. * Nutrition - Ensure Plus 120ml tidcm. * Folate/Vitamin B deficiency - Folic acid/Vitamin B complex daily. * Hypomagnesemia - Magnesium chloride 128mg daily. * Muscle spasm - Robaxin 500mg tid thru 07/17/2023. * Nausea - Zofran 4mg q8h prn. * Overactive bladder - Tolterodine 2mg daily. * Vitamin E deficiency - Vitamin E 400iu daily. Medications at Discharge Home Medications atorvastatin 10 mg tablet 10 mg PO QHS Cholesterol 30 days #30 tabs 05/28/23 metoprolol succinate 25 mg tablet,extended release 24 hr 25 mg PO DAILY BP 30 days #30 tabs 05/28/23 acetaminophen 500 mg tablet 500 mg PO Q6H PRN pain (scale score 1-3) 07/07/23 albuterol sulfate 90 mcg/actuation aerosol inhaler 1 - 2 puff inhalation Q4H PRN PRN shortness of breath or wheezing 07/07/23 amlodipine 2.5 mg tablet 2.5 mg PO DAILY BP 07/07/23 amoxicillin 875 mg-potassium clavulanate 125 mg tablet 1 tab PO BID Antibiotic 07/07/23 calcium carbonate (Calcium 600) 600 mg PO DAILY Supplement 07/07/23 collagenase clostridium histo. 250 unit/gram topical ointment 1 applic topical DAILY Wound Care 07/07/23 magnesium 250 mg tablet 250 mg PO DAILY Supplement 07/07/23 methocarbamol 500 mg tablet 500 mg PO TID Muscle Spasms 07/07/23 ondansetron 4 mg disintegrating tablet 4 mg PO Q8H PRN nausea and vomiting 07/07/23 oxybutynin chloride 5 mg tablet,extended release 24 hr 5 mg PO DAILY dysuria 07/07/23 oxycodone 5 mg capsule 5 mg PO DAILY pain (4-10) 07/07/23 polyethylene glycol 3350 17 gram/dose oral powder 17 g PO DAILY Constipation 07/07/23 sodium hypochlorite 0.25 % solution (Dakin's Solution) 1 applic topical DAILY Wound Care 07/07/23 vitamin B12 500 mcg-folic acid 400 mcg tablet 1 tab PO DAILY Supplement 07/07/23 vitamin E (dl, acetate) 180 mg (400 unit) capsule 180 mg PO DAILY Supplement 07/07/23 Hospital Course Operations - (See below.) Procedures - (See below.) Summary of Care Provided Minutes Spent on Discharge: 15 Hospital Course: 83 year old male with below past medical history hospitalized for Whipple procedure 06/16/2023, complicated by duodenal/jejunal anastomotic leak requiring redo, pelvic abscess requiring CT guided drainage, admitted to TCU with debility, here for rehabilitation, strengthening, prior to discharge home with . 07/08/2023 Resident hypotensive, ill appearing. Discharge to [facility] ED for evaluation to rule out sepsis. Dr. Campbell admitted resident to [facility] for sepsis, will subsequently transfer patient to [facility], where Whipple was performed. Medical Records Data Medical Nutrition Assessment Dietitian: Malnutrition Criteria Met Start: 07/08/23 12:05 Freq: Status: Active Protocol: Document 07/08/23 12:06 [facility] (Rec: 07/08/23 12:06 [facility] Desktop) Nutrition Malnutrition Evidence of Malnutrition Exists Yes Malnutrition (severe): Acute Illness/Injury Evidenced By Suboptimal Energy Intake ( Severe),Weight Loss (Severe) Clinical Problem Acute Disease or Injury Related Malnutrition Etiology related to recent surgeries and inadequate energy intake Signs/Symptoms as evidenced by unintended 6.5 % wt loss x ~ 6 wks and bad appetite x 3 wks [employer]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 Status Active Problem Recommendation Dietitian Recommendations/Changes Continue regular - fiber restricted diet as ordered Continue 4 oz ensure plus high protein 3x/day w/ medpass - prefers vanilla Weight / BMI Weight Weight: 72.529 kg Body Mass Index (BMI) 24.2 ABG / Lab / Microbiology Data 07/08/23 05:28 07/08/23 05:28 Laboratory: Laboratory Results - last 24 hr 07/08/23 05:28: WBC 11.8 H, RBC 2.89 L, Hgb 9.1 L, Hct 28.0 L, MCV 96.9 H, MCH 31.5, MCHC 32.5, RDW Std Deviation 48.3 H, RDW Coeff of Joss 13.6, Plt Count 357, MPV 9.3, Immature Gran % (Auto) 0.400, Neut % (Auto) 69.7, Lymph % (Auto) 16.2 L , [place] % (Auto) 10.0, Eos % (Auto) 3.0, Baso % (Auto) 0.7, Absolute Neuts (auto) 8.2 H, Absolute Lymphs (auto) 1.90, Nucleated RBC % 0, Sodium 135 L, Potassium 3.8, Chloride 102, Carbon Dioxide 31.0, Anion Gap 2 L, BUN 11, Creatinine 0.48 L , Estim Creat Clear Calc 70.06, Est GFR (MDRD) Af Amer 216, Est GFR (MDRD) Non- Af 179, BUN/Creatinine Ratio 23.0 H, Glucose 106, Calcium 8.3 L D/C Instructions Discharge Diet: No restrictions Discharge Activity: Return to Normal Activity, May Shower and Use Walker Weight Bearing Status: Weight bearing as tolerated Call your doctor if you observe: Fever of 101 or Higher, Inability to urinate, Inability to have a bowel movement, Shortness of breath, Dizziness, Fainting spells, Swelling in the ankles, Chest pain and Uncontrolled pain Additional Instructions: Discharge to [facility] ED for evaluation to rule out sepsis. Dr. Campbell admitted resident to [facility] for sepsis, will subsequently transfer patient to [facility], where Pool was performed. Please Follow Up With: Nolan Polanco MD Meaningful Use Info Meaningful Use Meaningful Use Diagnoses (Choose all that apply): None applicable Ischemic Stroke Statin Dosing Therapy Reference: STATIN DOSE THERAPY REFERENCE: * Patients > 75 years receive moderate or high dose statin therapy. * Patients 75 years or YOUNGER should receive HIGH intensity statin dose unless contraindicated. You will be required to document reason for non-treatment if statin daily dose does not meet guidelines. HIGH DOSE STATIN THERAPY DAILY Atorvastatin > than or = to 40 mg Rosuvastatin > than or = to 20 mg Amlodipine + Atorvastatin > than or = to 2.5/40 mg Ezetimibe + Simvastatin 10/80 mg Simvastatin 80mg Discharge Plan Admission Admit Date/Time: 07/07/23 16:16 Primary Reason for Your Visit: Debility. Attending Provider: Anmol Johnson Chi Primary Care Provider: Cameron Woods Instructions Additional Instructions / Restrictions: Discharge to [facility] ED for evaluation to rule out sepsis. Dr. Campbell admitted resident to [facility] for sepsis, will subsequently transfer patient to [facility], where Pool was performed. Discharge Orders/Prescriptions Prescriptions: Continued albuterol sulfate 90 mcg/actuation HFA aerosol inhaler 1 - 2 puff INHALATION Q4H PRN PRN (Reason: shortness of breath or wheezing) amlodipine 2.5 mg tablet 2.5 mg PO DAILY acetaminophen 500 mg tablet 500 mg PO Q6H PRN (Reason: pain (scale score 1-3)) amoxicillin-pot clavulanate 875-125 mg tablet 1 tab PO BID calcium carbonate [Calcium 600] 600 mg calcium (1,500 mg) tablet 600 mg PO DAILY collagenase clostridium histo. 250 unit/gram ointment 1 applic topical DAILY magnesium 250 mg tablet 250 mg PO DAILY methocarbamol 500 mg tablet 500 mg PO TID Patient Comments: Take 1 tablet by mouth in the morning 1Tablet at noon and 1 table before bedtime for 10 days ondansetron 4 mg tablet,disintegrating 4 mg PO Q8H PRN (Reason: nausea and vomiting) oxybutynin chloride 5 mg tablet extended release 24hr 5 mg PO DAILY oxycodone 5 mg capsule 5 mg PO DAILY polyethylene glycol 3350 17 gram/dose powder 17 g PO DAILY Dakin's Solution 0.25 % solution 1 applic topical DAILY vitamin A25-cdyff acid 500-400 mcg tablet 1 tab PO DAILY Rx Instructions: administer with a meal vitamin E (dl, acetate) 180 mg (400 unit) capsule 180 mg PO DAILY atorvastatin 10 mg Tablet 10 mg PO QHS 30 Days Qty: 30 0RF metoprolol succinate 25 mg Tablet Extended Release 24 Hr 25 mg PO DAILY 30 Days Qty: 30 0RF Discontinued potassium 99 mg tablet 99 mg PO DAILY simvastatin 10 mg tablet 10 mg PO QHS pyridoxine (vitamin B6) 10 mg tablet 10 mg PO DAILY tolterodine 2 mg Capsule,Extended Release 24hr 2 mg PO DAILY 30 Days Qty: 30 0RF Referrals / Follow Up: Cameron Woods MD [Primary Care Provider] - Disposition Disposition (needs filled in before D/C Order can be placed): Acute Care Hospital
--- NOTE | 2023-07-20 10:02 | MDS.RN ---
Information for the MDS was obtained from review of the clinical record, interview of resident, staff, and direct observation of resident?s care.
== END 2023-07-08 11:15 | disposition short-term general hospital (02) | DRG 949 ==
PROVIDERS: Admitting Provider Family Medicine Geriatric Medicine; PCP Family Medicine; Visit Provider Family Medicine Geriatric Medicine
DX: Z48.815 Encounter for surgical aftercare following surgery on the digestive system (principal); K65.1 Peritoneal abscess; A41.9 Sepsis, unspecified organism; C25.9 Malignant neoplasm of pancreas, unspecified; K91.89 Other postprocedural complications and disorders of digestive system; E53.8 Deficiency of other specified B group vitamins; E78.00 Pure hypercholesterolemia, unspecified; B95.4 Other streptococcus as the cause of diseases classified elsewhere; J44.9 Chronic obstructive pulmonary disease, unspecified; I10 Essential (primary) hypertension; F41.9 Anxiety disorder, unspecified; E83.42 Hypomagnesemia; Z87.891 Personal history of nicotine dependence; N32.81 Overactive bladder; Y83.2 Surgical operation with anastomosis, bypass or graft as the cause of abnormal reaction of the patient, or of later complication, without mention of misadventure at the time of the procedure; Z79.899 Other long term (current) drug therapy; Z90.410 Acquired total absence of pancreas
CPT/HCPCS: 36415; 80048; 85025; 97162; 97166; 97802; A4216

== ENCOUNTER 2023-07-08 11:20 | Emergency (ER) | payer MEDICARE, SELFPAY ==
[2023-07-08] VITALS (21 sets, daily range): BP systolic 65–113; BP diastolic 39–82; PULSE 72–97; RESP 15–25; TEMP 34.5–36.9; O2SAT 88–100; BMI 25.0
--- NOTE | 2023-07-08 12:01 | EKG12_ITS ---
Test Reason : Blood Pressure : / mmHG Vent. Rate : 075 BPM Atrial Rate : 075 BPM P-R Int : 146 ms QRS Dur : 108 ms QT Int : 410 ms P-R-T Axes : 056 083 064 degrees QTc Int : 457 ms Normal sinus rhythm Right bundle branch block Abnormal ECG Confirmed by ELE WAHL, ALTAGRACIA ([id number]), book editor NIKKY GONZALEZ ([id number]) on 07/09/2023 11:35:52 AM Referred By: Confirmed By:ALTAGRACIA MARLOW MD
--- NOTE | 2023-07-08 12:01 | CT_ITS ---
STUDY: CT ABDOMEN AND PELVIS WITH CONTRAST - URINARY TRACT REASON FOR EXAM: Male, 83 years old. Recent whipple RADIATION DOSAGE (If Supplied By Facility): CTDIvol = ( 14.23 ) mGy, DLP = ( 823.07 ) mGycm TECHNIQUE: IV 100mL Isovue-370 was administered. Transaxial images were obtained from the dome of the diaphragm to the symphysis pubis subsequent to intravenous contrast administration. Multiplanar coronal and sagittal images were reformatted. Individualized Dose Optimization Techniques Were Used For This CT. COMPARISON: May 26, 2023 FINDINGS: There are bilateral small pleural effusions, left greater than right. There are emphysematous changes within the visualized lung bases. There are coronary artery calcifications. There is pneumobilia again visualized that is slightly more pronounced than the prior examination. There is evidence of prior Whipple procedure. There is a percutaneous transhepatic biliary catheter in place. The residual body and tail the pancreas are within normal limits. Normal bilateral adrenal glands. There is a percutaneous gastrostomy tube in place. Normal small intestine. There are multiple colonic diverticula consistent with diverticulosis. There is non-visualization of the appendix. There is free fluid within the abdomen and pelvis. There is diffuse atherosclerotic calcification of the abdominal aorta. There is a stable infrarenal abdominal aortic aneurysm measuring up to 3.8 cm. No retroperitoneal adenopathy. Normal right kidney. Normal left kidney. There is a bladder diverticulum arising from the posterior urinary bladder right of midline. There are few foci of air within the urinary bladder, likely secondary to recent instrumentation. There is a pigtail catheter in place posterior to the urinary bladder and anterior to the rectum terminating within the posterior aspect of 4.2 x 4.8 x 1.7 cm fluid collection with peripheral enhancement and containing foci of air. There are postsurgical changes along the anterior abdominal wall associated with an anterior wall defect and what appears to be a small bowel ostomy. There is an additional drainage catheter within a segment of small bowel that appears to be contiguous with the percutaneous drainage catheter. There are diffuse degenerative changes of the visualized lumbar spine. CT/Abdomen/Pelvis W IV Cont ONLY IMPRESSION: 4.2 x 4.8 x 1.7 cm fluid collection within the pelvis concerning for an abscess associated with a percutaneous pigtail drainage catheter. Ascites. Status post Whipple associated with postsurgical changes along the anterior abdominal wall. Bilateral pleural effusions. Slightly more pronounced pneumobilia, likely secondary to recent instrumentation. Stable infrarenal abdominal aortic aneurysm measuring up to 3.8 cm. Colonic diverticulosis. Electronically Signed: Mary Sagastume MD at 13:38 EDT ,
[2023-07-08] MEDS: 0.9% Normal Saline (1000mL) 1,000 ML 1000 ML IV (12:24)
[2023-07-08] MEDS: fentaNYL 100 MCG/2 ML Ampul 50 MCG IV ×2 (12:24→17:39)
[2023-07-08] MEDS: Ondansetron 4 MG/2 ML Vial IV ×2 (12:25→17:39)
[2023-07-08 12:58] LABS: Absolute Lymphocyte Count 1.84 X10^3/uL (0.83-4.51); Absolute Neutrophil Count 14.2 X10^3/uL (2.0-7.7); Basophil# 0.09 X10^3/uL; Basophil% 0.5 % (0-1); Eosinophil# 0.09 X10^3/uL; Eosinophils% 0.5 % (0-5); Hematocrit 25.4 % (40-54); Lymphocyte # 1.84 X10^3/ul (0.83-4.51); Lymphocyte % 10.5 % (19-41); Mean Corp Hgb Conc 31.5 g/dL (32-36); Mean Corpuscular Hgb 30.8 pg (27.0-32.0); Mean Corpuscular Volume 97.7 fL (80-94); Mean Platelet Vol. 10.1 fl (6.2-12.0); Monocyte% 6.8 % (0-10); NRBC Flagged by Analyzer 0 % (0-5); Neutrophil # 14.22 X10^3/uL (2.7-7.7); Neutrophil % 80.8 % (47-70); Platelet Count 453 K/mm3 (150-450); RBC Distribution Width CV 13.9 % (11.6-14.6); RBC Distribution Width SD 49.6 fl (35.1-43.9); White Blood Count 17.6 K/mm3 (4.4-11.0)
[2023-07-08 13:20] LABS: International Normalized Ratio 1.2; Prothrombin Time (Protime)PT. 14.8 SECONDS (11.7-14.9)
[2023-07-08 13:21] LABS: Partial Thromboplast Time 34.1 Seconds (24.1-36.2)
[2023-07-08 13:32] LABS: ALB/GLOB Ratio 0.5 RATIO (0.9-2.4); AST(SGOT) 31 U/L (15-37); Alanine Aminotransfer ALT/SGPT 41 U/L (16-61); Albumin, Serum 1.9 g/dL (3.2-5.0); Alkaline Phosphatase 153 U/L (45-117); Anion Gap 6 (5-15); BUN 14 mg/dL (7-18); BUN/Creat Ratio 19.6 RATIO (10-20); Calcium,Total 7.9 mg/dL (8.5-10.1); Chloride 103 mmol/L (98-107); Creatinine, Serum 0.72 mg/dL (0.70-1.30); EST Glomerular Filtration Rate 112 mL/min (>60); Est Glom Filt Rate - Afr Amer 136 mL/min (>60); Estimated Creatinine Clearance 70.06 ml/min; Globulin 3.5 g/dL (2.2-4.2); Glucose 117 mg/dL (74-106); Lipase 11 U/L (13-75); Potassium 3.9 mmol/L (3.5-5.1); Protein, Total 5.4 g/dL (6.4-8.2); Sodium Level 136 mmol/L (136-145); Troponin-I HS 8 pg/mL (3.0-78.0)
[2023-07-08 14:09] LABS: Bacteria 0 SEEN /hpf (None Seen); Mucous, Urine 0 SEEN /hpf (<or=2+); Red Blood Cells-Urine 0 SEEN /hpf (0-5); Squamous Epithelial Cells - UA 0 SEEN /hpf (0-5); White Blood Cells 0 SEEN /hpf (0-5)
[2023-07-08] MEDS: 0.9% Normal Saline (1000mL) 1,000 ML 999 ML IV (14:09)
[2023-07-08 14:19] LABS: Color, Urine Yellow (Yellow); Glucose, Dipstick Normal (Normal); Ketone-Dipstick 5 mg/dl (Negative); Leukocyte Esterase-Dipstick Negative /ul (Negative); Nitrite-Dipstick Negative (Negative); Occult Blood-Urine Negative /ul (Negative); Protein-Dipstick 15 mg/dl (Negative); Urine Bilirubin Dipstick Negative (Negative); Urine Clarity Clear (Clear); Urine Urobilinogen Normal (Normal)
[2023-07-08] MEDS: Piperacil/Tazobactam 4.5 GM in 0.9% Normal Saline (100mL MB+) 100 ML IV (14:29)
[2023-07-08] MEDS: 0.9% Normal Saline (500mL Bag) 500 ML 1000 ML IV (14:33)
--- NOTE | 2023-07-08 14:56 | PCM.HP.STD ---
[facility] Date of Admission: 07/08/23 Date of Service: 07/08/23 Chief Complaint: Hypotension. [facility] Narrative JENNIFER VILLAGRAN, is a 83 M with a past medical history of essential hypertension, hyperlipidemia, overactive bladder, history of atrial fibrillation, history of tobacco abuse; with subsequent COPD, history of appendectomy, history of hernia surgery and recent admission to [facility] for Whipple procedure on June 16, [address] Polanco with a nils postoperative course including a duodenal and jejunal anastomotic leak requiring take-back to OR on June 24, 2023 for washout and repair but then developed a pelvic fluid collection / abscess with fluid culture positive for Streptococcus constellatus with patient then having a CT guided drain placed along with him being started on oral Augmentin in addition to being transitioned from TPN to tube feed with patient still having an open abdominal wound who was then accepted to the rehabilitation service here on July 07, [address] Johnson who then had this patient sent to this ER due to declining clinical condition with a blood pressure of 81/51/ mmHg. Dr. Ramsey was the ER physician providing care for this patient in the ER and apparently Dr. Polanco has declined to accept his patient back to [facility] and he is recommending improved antibiotic coverage and that a bigger drain be placed to treat his postoperative pelvic abscess that is currently being treated with Augmentin. To complicate this case further this patient has also expressed severe reluctance to return to [facility] with him telling Dr. Ramsey to, give him a gun if she was going to send him back because he feels his care was suboptimal at that facility. He denies abdominal pain but he does admit to severe back pain in his mid back. The patient was then diagnosed with sepsis with septic shock with his blood pressure dropping to 65/39 mm Hg in spite of the sepsis fluid bolus likely due to his known pelvic abscess with patient also started on empiric IV Vancomycin and IV Zosyn with new cultures pending at this time. I have spoken with my director and placed a call to the general surgeon on-call to notify them of this issue. In the meantime ICU orders were written under the sepsis protocol until this patient can be safely returned to [facility]. This is a same-day admission and discharge. [facility] Medical History Afib COPD (chronic obstructive pulmonary disease) Essential (primary) hypertension History of COPD Hypercholesteremia Hyperlipidemia Overactive bladder Preoperative clearance RBBB Ventricular premature complex Home Medications atorvastatin 10 mg tablet 10 mg PO QHS Cholesterol 30 days #30 tabs 05/28/23 [Rx Last Taken Unknown] metoprolol succinate 25 mg tablet,extended release 24 hr 25 mg PO DAILY BP 30 days #30 tabs 05/28/23 [Rx Last Taken 07/07/23 08:20] acetaminophen 500 mg tablet 500 mg PO Q6H PRN pain (scale score 1-3) 07/07/23 [History Last Taken 07/03/23] albuterol sulfate 90 mcg/actuation aerosol inhaler 1 - 2 puff inhalation Q4H PRN PRN shortness of breath or wheezing 07/07/23 [History Last Taken Unknown] amlodipine 2.5 mg tablet 2.5 mg PO DAILY BP 07/07/23 [History Last Taken 07/07/23 08:20] amoxicillin 875 mg-potassium clavulanate 125 mg tablet 1 tab PO BID Antibiotic 07/07/23 [History Last Taken Unknown] calcium carbonate (Calcium 600) 600 mg PO DAILY Supplement 07/07/23 [History Last Taken Unknown] collagenase clostridium histo. 250 unit/gram topical ointment 1 applic topical DAILY Wound Care 07/07/23 [History Last Taken 07/07/23 08:30] magnesium 250 mg tablet 250 mg PO DAILY Supplement 07/07/23 [History Last Taken Unknown] methocarbamol 500 mg tablet 500 mg PO TID Muscle Spasms 07/07/23 [History Last Taken Unknown] ondansetron 4 mg disintegrating tablet 4 mg PO Q8H PRN nausea and vomiting 07/07/23 [History Last Taken Unknown] oxybutynin chloride 5 mg tablet,extended release 24 hr 5 mg PO DAILY dysuria 07/07/23 [History Last Taken Unknown] oxycodone 5 mg capsule 5 mg PO DAILY pain (4-10) 07/07/23 [History Last Taken 07/06/23] polyethylene glycol 3350 17 gram/dose oral powder 17 g PO DAILY Constipation 07/07/23 [History Last Taken Unknown] sodium hypochlorite 0.25 % solution (Dakin's Solution) 1 applic topical DAILY Wound Care 07/07/23 [History Last Taken 07/07/23] vitamin B12 500 mcg-folic acid 400 mcg tablet 1 tab PO DAILY Supplement 07/07/23 [History Last Taken Unknown] vitamin E (dl, acetate) 180 mg (400 unit) capsule 180 mg PO DAILY Supplement 07/07/23 [History Last Taken Unknown] Allergy/AdvReac Type Severity Reaction Status Date / Time No Known Allergies Allergy Verified 05/27/23 09:56 Surgical History History of appendectomy History of common bile duct surgery History of hernia surgery History of Whipple procedure Social History household members: spouse Smoking Status: Former smoker how long ago did patient quit smokin years ago alcohol intake: former details: Quit on admission substance use type: does not use caffeine: Yes Type: coffee Number of servings: 1 ROS ROS Narrative Patient severe acute illness precluded him from being able to complete a full review of systems at this time. Vital Signs Vital Signs Vital Signs: 07/08/23 11:21 07/08/23 11:26 07/08/23 11:29 Temperature 97.2 F L Temperature Source Temporal Pulse Rate 72 77 Respiratory Rate 20 H 19 H Blood Pressure 65/44 L 75/50 L Blood Pressure Mean 51 58 Pulse Ox 95 Oxygen Delivery Method Room Air Room Air 07/08/23 12:20 07/08/23 13:00 07/08/23 14:00 Temperature Temperature Source Pulse Rate 77 80 82 Respiratory Rate 18 17 17 Blood Pressure 73/48 L 70/48 L 81/51 L Blood Pressure Mean 56 55 61 Pulse Ox 96 99 94 Oxygen Delivery Method Room Air Room Air Room Air Weight Weight: 164 lb 3.91 oz Body Mass Index (BMI) 25.0 Physical Exam Const alert, oriented x3, no apparent distress and average body habitus Constitutional Narrative: Patient appears pale and acutely ill. General Appearance: cooperative HEENT normocephalic, head/scalp atraumatic and hearing grossly normal bilaterally HEENT Narrative: Mucous membranes dry. Eyes PERRL and EOMs intact bilaterally Neck no lymphadenopathy and supple Resp normal respiratory effort, no retractions, no use of accessory muscles and clear to auscultation bilaterally Cardio regular rate and regular rhythm GI non-tender and non-distended GI Narrative: Patient has a large abdominal wound bandage in place over his midline with multiple drains in place. Extremity normal to inspection and full ROM Skin Skin Narrative: Patient has no evidence of rash or jaundice. Neuro oriented x3, CN's II-XII intact bilaterally, moves all extremities and no focal motor deficits Sensorium / Orientation: awake, alert, oriented to person, oriented to place and oriented to time Speech: speech normal Psych Mood & Affect: depressed Results Medical Records Data Attestation: I reviewed the patient's medical records Lab / Micro Data Attestation: I reviewed the patient's lab results. 07/08/23 12:20 07/08/23 12:20 Labs: Laboratory Results - last 24 hr 07/08/23 12:20: WBC 17.6 H, RBC 2.60 L, Hgb 8.0 L, Hct 25.4 L, MCV 97.7 H, MCH 30.8, MCHC 31.5 L, RDW Std Deviation 49.6 H, RDW Coeff of Joss 13.9, Plt Count 453 H, MPV 10.1, Immature Gran % (Auto) 0.900, Neut % (Auto) 80.8 H, Lymph % (Auto) 10.5 L, [place] % (Auto) 6.8, Eos % (Auto) 0.5, Baso % (Auto) 0.5, Absolute Neuts (auto) 14.2 H, Absolute Lymphs (auto) 1.84, Nucleated RBC % 0, PT 14.8, INR 1.2, APTT 34.1, Sodium 136, Potassium 3.9, Chloride 103, Carbon Dioxide 27.0, Anion Gap 6, BUN 14, Creatinine 0.72, Estim Creat Clear Calc 70.06, Est GFR (MDRD) Af Amer 136, Est GFR (MDRD) Non-Af 112, BUN/Creatinine Ratio 19.6, Glucose 117 H, Lactic Acid 1.0, Calcium 7.9 L, Total Bilirubin 0.60, AST 31, ALT 41, Alkaline Phosphatase 153 H, Troponin I High Sens 8, Total Protein 5.4 L, Albumin 1.9 L, Globulin 3.5, Albumin/Globulin Ratio 0.5 L, Lipase 11 L 07/08/23 14:00: Urine Color Yellow, Urine Clarity Clear, Urine pH 7.0, Ur Specific [place] 1.010, Urine Protein 15 H, Urine Glucose (UA) Normal, Urine Ketones 5 H, Urine Occult Blood Negative, Urine Nitrite Negative, Urine Bilirubin Negative, Urine Urobilinogen Normal, Ur Leukocyte Esterase Negative, Urine RBC 0 SEEN, Urine WBC 0 SEEN, Ur Squamous Epith Cells 0 SEEN, Urine Bacteria 0 SEEN, Urine Mucus 0 SEEN Imaging Radiology Impression Abdomen/Pelvis CT 07/08/23 12:01 IMPRESSION: 4.2 x 4.8 x 1.7 cm fluid collection within the pelvis concerning for an abscess associated with a percutaneous pigtail drainage catheter. Ascites. Status post Whipple associated with postsurgical changes along the anterior abdominal wall. Bilateral pleural effusions. Slightly more pronounced pneumobilia, likely secondary to recent instrumentation. Stable infrarenal abdominal aortic aneurysm measuring up to 3.8 cm. Colonic diverticulosis. Electronically Signed: Mary Sagastume MD at 13:38 EDT , Assessment & Plan Assessment/Plan (1) Sepsis: QUALIFIERS: Sepsis type: sepsis due to unspecified organism Sepsis acute organ dysfunction status: with acute organ dysfunction Severe sepsis acute organ dysfunction type: unspecified Severe sepsis shock status: with septic shock Qualified Code(s): A41.9 - Sepsis, unspecified organism; R65.21 - Severe sepsis with septic shock (2) Pelvic abscess: (3) H/O Whipple procedure: (4) Pancreatic cancer: QUALIFIERS: Pancreatic malignancy location: unspecified Qualified Code(s): C25.9 - Malignant neoplasm of pancreas, unspecified PLAN: Plan 1. Sepsis with septic shock due to pelvic abscess as postoperative complication after Whipple procedure on June 16, 2023 complicated by a duodenal jejunal anastomotic leak requiring take-back to the OR on June 24, 2023 for washout and repair with fluid cultures positive for Streptococcus constellatus - Admit with ICU orders under sepsis protocol. Patient should be immediately transferred back to his original tertiary care center with an uncontrolled infection that is likely a postoperative complication. Patient was started on empiric IV Zosyn and IV vancomycin with cultures pending at this time. I spoke with the general surgeon on-call who agreed patient should be returned back to [facility] and thankfully a bed was made available for patient to transfer as we do not have an interventional radiologist on-call available or today to place a larger tube into his pelvic abscess. This is a same-day admission and discharge. Total time: Approximately 85 minutes. Sepsis Attestation Sepsis Alert: Yes Sepsis Attestation: Agree w/Sepsis Date exam was performed: 07/08/23 Time exam was performed: 14:30 Possible Source of Sepsis: GI tract/intra-abdominal Sepsis Organ Dysfunction Criteria Present: SBP < 90 mmHg or MAP < 65 mmHg and New/Unexplained change in mental status Fluid Resuscitation Fluid resuscitation indicated?: Yes Fluid Resuscitation ordered: 30 ml/kg fluid bolus ordered Amount of fluid ordered: 3 Sepsis Note Date exam was performed: 07/08/23 Time exam was performed: 17:30 Sepsis Attestation: Sepsis re-evaluation was performed Response to fluids: Fluid responsive hypotension Charges/Coding Visit Charges OBSV E&M: 88015 Observ/hosp same date L3
[2023-07-08] MEDS: Vancomycin IV 1,000 MG/200 ML BAG 200 MG IV (15:12)
--- NOTE | 2023-07-08 16:04 | EX.ED.DYSGE1 ---
HPI History of Present Illness Chief Complaint: Wound Narrative Narrative: 83-year-old male presenting with hypotension, blood from drainage tube. Patient is here for rehabilitation. He was discharged [facility] yesterday and sent for rehabilitation. He had Whipple procedure 06/16/2023. That was complicated by a duodenal jejunal anastomotic leak requiring take back to the OR on 06/24/2023. He did develop pelvic fluid collection and underwent CT-guided drainage. He has been transitioned to tube feeds. He was discharged on Augmentin. Today he has been hypotensive with generalized weakness. He denies abdominal pain. Recent Illness/Hospital[facility]: [facility] Medical History Afib COPD (chronic obstructive pulmonary disease) Essential (primary) hypertension History of COPD Hypercholesteremia Hyperlipidemia Overactive bladder Preoperative clearance RBBB Ventricular premature complex Home Medications atorvastatin 10 mg tablet 10 mg PO QHS Cholesterol 30 days #30 tabs 05/28/23 [Rx Last Taken Unknown] metoprolol succinate 25 mg tablet,extended release 24 hr 25 mg PO DAILY BP 30 days #30 tabs 05/28/23 [Rx Last Taken 07/07/23 08:20] tolterodine 2 mg capsule,extended release 24 hr 2 mg PO DAILY Overactive Bladder 30 days #30 caps 05/28/23 [Rx Last Taken Unknown] acetaminophen 500 mg tablet 500 mg PO Q6H PRN pain (scale score 1-3) 07/07/23 [History Last Taken 07/03/23] albuterol sulfate 90 mcg/actuation aerosol inhaler 1 - 2 puff inhalation Q4H PRN PRN shortness of breath or wheezing 07/07/23 [History Last Taken Unknown] amlodipine 2.5 mg tablet 2.5 mg PO DAILY BP 07/07/23 [History Last Taken 07/07/23 08:20] amoxicillin 875 mg-potassium clavulanate 125 mg tablet 1 tab PO BID Antibiotic 07/07/23 [History Last Taken Unknown] calcium carbonate (Calcium 600) 600 mg PO DAILY Supplement 07/07/23 [History Last Taken Unknown] collagenase clostridium histo. 250 unit/gram topical ointment 1 applic topical DAILY Wound Care 07/07/23 [History Last Taken 07/07/23 08:30] magnesium 250 mg tablet 250 mg PO DAILY Supplement 07/07/23 [History Last Taken Unknown] methocarbamol 500 mg tablet 500 mg PO TID Muscle Spasms 07/07/23 [History Last Taken Unknown] ondansetron 4 mg disintegrating tablet 4 mg PO Q8H PRN nausea and vomiting 07/07/23 [History Last Taken Unknown] oxybutynin chloride 5 mg tablet,extended release 24 hr 5 mg PO DAILY dysuria 07/07/23 [History Last Taken Unknown] oxycodone 5 mg capsule 5 mg PO DAILY pain (4-10) 07/07/23 [History Last Taken 07/06/23] polyethylene glycol 3350 17 gram/dose oral powder 17 g PO DAILY Constipation 07/07/23 [History Last Taken Unknown] potassium 99 mg tablet 99 mg PO DAILY Supplement 07/07/23 [History Last Taken Unknown] pyridoxine (vitamin B6) 10 mg tablet 10 mg PO DAILY Supplement 07/07/23 [History Last Taken Unknown] simvastatin 10 mg tablet 10 mg PO QHS Cholesterol 07/07/23 [History Last Taken Unknown] sodium hypochlorite 0.25 % solution (Dakin's Solution) 1 applic topical DAILY Wound Care 07/07/23 [History Last Taken 07/07/23] vitamin B12 500 mcg-folic acid 400 mcg tablet 1 tab PO DAILY Supplement 07/07/23 [History Last Taken Unknown] vitamin E (dl, acetate) 180 mg (400 unit) capsule 180 mg PO DAILY Supplement 07/07/23 [History Last Taken Unknown] Allergy/AdvReac Type Severity Reaction Status Date / Time No Known Allergies Allergy Verified 05/27/23 09:56 Surgical History History of appendectomy History of common bile duct surgery History of hernia surgery History of Whipple procedure Social History household members: spouse Smoking Status: Former smoker how long ago did patient quit smokin years ago alcohol intake: former details: Quit on admission substance use type: does not use caffeine: Yes Type: coffee Number of servings: 1 ROS ROS ED Constitutional Constitutional ED: Denies fever(s) Eyes Eyes: Denies change in vision ENT ENT ED: Denies rhinorrhea or sore throat Cardiovascular Cardiovascular: Denies chest pain or palpitations Respiratory/Chest Respiratory/Chest: Denies cough or dyspnea Gastrointestinal Gastrointestinal: Reports nausea; Denies abdominal pain, diarrhea or vomiting Genitourinary Genitourinary ED: Denies dysuria Musculoskeletal Musculoskeletal: Denies myalgias Integumentary Denies rash Neurologic Neurologic: Denies headache(s) Psychiatric Psychiatric: Denies suicidal thoughts EXAM Physical Exam Const Vital Signs: 07/08/23 11:21 07/08/23 11:26 07/08/23 11:29 Temperature 97.2 F L Temperature Source Temporal Pulse Rate 72 77 Respiratory Rate 20 H 19 H Blood Pressure 65/44 L 75/50 L Blood Pressure Mean 51 58 Pulse Ox 95 Oxygen Delivery Method Room Air Room Air 07/08/23 12:20 07/08/23 13:00 07/08/23 14:00 Temperature Temperature Source Pulse Rate 77 80 82 Respiratory Rate 18 17 17 Blood Pressure 73/48 L 70/48 L 81/51 L Blood Pressure Mean 56 55 61 Pulse Ox 96 99 94 Oxygen Delivery Method Room Air Room Air Room Air 07/08/23 15:00 07/08/23 15:27 Temperature Temperature Source Pulse Rate 79 82 Respiratory Rate 18 25 H Blood Pressure 65/39 L 68/43 L Blood Pressure Mean 47 51 Pulse Ox 93 97 Oxygen Delivery Method Room Air Room Air Positive well nourished and well developed General Appearance ED: well developed HEENT Reports normocephalic and head/scalp atraumatic Eyes PERRL and EOMs intact bilaterally General Eye ED: Yes pale conjunctiva Neck supple General: Negative for tenderness Chest Wall inspection of chest normal Resp normal respiratory effort and clear to auscultation bilaterally Cardio regular rate and regular rhythm GI GI Narrative: Abdominal incision open with wet-to-dry dressing. G-tube, percutaneous transhepatic cholangiostomy tube, CT-guided drainage tube with small amount of blood in bulb. Palpation: soft; Negative for guarding or rebound tenderness present no CVA tenderness Extremity normal to inspection Neuro oriented x3 Sensorium / Orientation: alert Psych mental status grossly normal Sepsis Attestation Sepsis Alert: Yes Sepsis Attestation: Agree w/Sepsis Possible Source of Sepsis: GI tract/intra-abdominal Sepsis Organ Dysfunction Criteria Present: SBP < 90 mmHg or MAP < 65 mmHg Fluid Resuscitation Fluid resuscitation indicated?: Yes Fluid Resuscitation ordered: 30 ml/kg fluid bolus ordered Sepsis Note Sepsis Attestation: Sepsis re-evaluation was performed Response to fluids: Fluid responsive hypotension MDM MDM MDM Narrative Medical decision making narrative: Patient is hypotensive on arrival. Differential diagnosis includes sepsis, hypovolemia, bleeding. He is given 30 cc/kg normal saline IV fluid bolus. Blood cultures were sent. White count 17.6. Hemoglobin 8.0. He was typed and crossed for 1 unit packed red blood cell transfusion. He was given vancomycin and Zosyn IV. After IV fluid bolus his MAP is 64. Lactic acid 1.0. BUN, creatinine normal. [facility] Initial plan for continued fluids antibiotics and admission to [facility]. Hospitalist is not comfortable with this plan. Discussed again with Dr. Polanco. Patient will be transferred to [facility], systolic BP 81, prefers additional IV fluids instead of starting pressors at this time. Patient is agreeable to transfer. History & Record Review Discussion w/independent historian: Patient Additional record(s) reviewed:: Prior outpatient record and Prior labs Lab Data Attestation: I reviewed the patient's lab results. Labs: Laboratory Results - last 24 hr 07/08/23 07/08/23 07/08/23 12:20 14:00 15:30 WBC 17.6 H RBC 2.60 L Hgb 8.0 L Hct 25.4 L MCV 97.7 H MCH 30.8 MCHC 31.5 L RDW Std Deviation 49.6 H RDW Coeff of Joss 13.9 Plt Count 453 H MPV 10.1 Immature Gran % (Auto) 0.900 Neut % (Auto) 80.8 H Lymph % (Auto) 10.5 L [place] % (Auto) 6.8 Eos % (Auto) 0.5 Baso % (Auto) 0.5 Absolute Neuts (auto) 14.2 H Absolute Lymphs (auto) 1.84 Nucleated RBC % 0 PT 14.8 INR 1.2 APTT 34.1 Sodium 136 Potassium 3.9 Chloride 103 Carbon Dioxide 27.0 Anion Gap 6 BUN 14 Creatinine 0.72 Estim Creat Clear Calc 70.06 Est GFR (MDRD) Af Amer 136 Est GFR (MDRD) Non-Af 112 BUN/Creatinine Ratio 19.6 Glucose 117 H Lactic Acid 1.0 Calcium 7.9 L Total Bilirubin 0.60 AST 31 ALT 41 Alkaline Phosphatase 153 H Troponin I High Sens 8 Total Protein 5.4 L Albumin 1.9 L Globulin 3.5 Albumin/Globulin Ratio 0.5 L Lipase 11 L Urine Color Yellow Urine Clarity Clear Urine pH 7.0 Ur Specific Burr 1.010 Urine Protein 15 H Urine Glucose (UA) Normal Urine Ketones 5 H Urine Occult Blood Negative Urine Nitrite Negative Urine Bilirubin Negative Urine Urobilinogen Normal Ur Leukocyte Esterase Negative Urine RBC 0 SEEN Urine WBC 0 SEEN Ur Squamous Epith Cells 0 SEEN Urine Bacteria 0 SEEN Urine Mucus 0 SEEN Crossmatch See Detail Radiography Diagnostic Testing: Clinical Impression(s) from Imaging Studies Abdomen/Pelvis CT 07/08/23 12:01 IMPRESSION: 4.2 x 4.8 x 1.7 cm fluid collection within the pelvis concerning for an abscess associated with a percutaneous pigtail drainage catheter. Ascites. Status post Whipple associated with postsurgical changes along the anterior abdominal wall. Bilateral pleural effusions. Slightly more pronounced pneumobilia, likely secondary to recent instrumentation. Stable infrarenal abdominal aortic aneurysm measuring up to 3.8 cm. Colonic diverticulosis. Electronically Signed: Mary Sagastume MD at 13:38 EDT , Critical Care Time Critical Care Time: Yes Critical care time (excluding procedures): 30-74 minutes Discharge Plan Triage Chief Complaint: Wound ED Provider: Yennifer Ramsey Dx/Rx/DC Orders Clinical Impression: Anemia, Leukocytosis, Abdominal fluid collection, Hypotension Prescriptions: No Action albuterol sulfate 90 mcg/actuation HFA aerosol inhaler 1 - 2 puff INHALATION Q4H PRN PRN (Reason: shortness of breath or wheezing) amlodipine 2.5 mg tablet 2.5 mg PO DAILY acetaminophen 500 mg tablet 500 mg PO Q6H PRN (Reason: pain (scale score 1-3)) amoxicillin-pot clavulanate 875-125 mg tablet 1 tab PO BID calcium carbonate [Calcium 600] 600 mg calcium (1,500 mg) tablet 600 mg PO DAILY collagenase clostridium histo. 250 unit/gram ointment 1 applic topical DAILY magnesium 250 mg tablet 250 mg PO DAILY methocarbamol 500 mg tablet 500 mg PO TID Patient Comments: Take 1 tablet by mouth in the morning 1Tablet at noon and 1 table before bedtime for 10 days ondansetron 4 mg tablet,disintegrating 4 mg PO Q8H PRN (Reason: nausea and vomiting) oxybutynin chloride 5 mg tablet extended release 24hr 5 mg PO DAILY oxycodone 5 mg capsule 5 mg PO DAILY polyethylene glycol 3350 17 gram/dose powder 17 g PO DAILY potassium 99 mg tablet 99 mg PO DAILY simvastatin 10 mg tablet 10 mg PO QHS Dakin's Solution 0.25 % solution 1 applic topical DAILY vitamin S43-dcxgu acid 500-400 mcg tablet 1 tab PO DAILY Rx Instructions: administer with a meal pyridoxine (vitamin B6) 10 mg tablet 10 mg PO DAILY vitamin E (dl, acetate) 180 mg (400 unit) capsule 180 mg PO DAILY tolterodine 2 mg Capsule,Extended Release 24hr 2 mg PO DAILY 30 Days Qty: 30 0RF atorvastatin 10 mg Tablet 10 mg PO QHS 30 Days Qty: 30 0RF metoprolol succinate 25 mg Tablet Extended Release 24 Hr 25 mg PO DAILY 30 Days Qty: 30 0RF Primary Care Provider: Cameron Woods Referrals: Cameron Woods MD [Primary Care Provider] - Disposition Disposition: Acute Care Hospital Discharge Location: [facility]
--- NOTE | 2023-07-08 20:00 | ED.RN ---
193: report called to [facility] nurse Galo Schmidt
== END 2023-07-08 20:43 | disposition short-term general hospital (02) ==
PROVIDERS: Emergency Provider Emergency Medicine; PCP Family Medicine; Visit Provider Emergency Medicine
DX: D64.9 Anemia, unspecified (principal); C25.9 Malignant neoplasm of pancreas, unspecified; A41.9 Sepsis, unspecified organism; R65.21 Severe sepsis with septic shock; J44.9 Chronic obstructive pulmonary disease, unspecified; D72.829 Elevated white blood cell count, unspecified; I10 Essential (primary) hypertension; I95.9 Hypotension, unspecified; Z87.891 Personal history of nicotine dependence
CPT/HCPCS: 36592; 74177; 80053; 81001; 83605; 83690; 84484; 85025; 85610; 85730; 86850; 86900; 86901; 86920; 86922; 87040; 93005; 96361; 96365; 96367; 96375; 99283; J7030; P9016; Q9967; A4216; J2405

== ENCOUNTER 2023-07-09 06:13 | Outpatient (RCR) | payer SELFPAY | END 2023-08-07 23:59 | LOC: PR 06:13 | PROVIDERS: PCP Family Medicine; Visit Provider Family Medicine | DX: Z00.00 Encounter for general adult medical examination without abnormal findings (principal) ==

== ENCOUNTER 2023-08-11 06:14 | Outpatient (RCR) | payer SELFPAY | END 2023-09-06 23:59 | LOC: PR 06:14 | PROVIDERS: PCP Family Medicine; Visit Provider Family Medicine | DX: Z00.00 Encounter for general adult medical examination without abnormal findings (principal) ==